=== PATIENT | male | born 1950 | race Caucasian/White ===

== ENCOUNTER 2017-01-02 08:18 | Inpatient (IN) | payer MEDICARE, OTHER ==
[~2017-01-02 08:18] MED LIST: FAMOTIDINE 20 MG/2 ML VIAL IV PRN; HEPARIN SODIUM,PORCINE 5,000 UNIT/ML 1 ML VIAL SQ ONE; HYDROmorphone 1 MG/ML 1 ML SYRINGE IVP PRN; LACTATED RINGERS 1,000 ML IV SCH; LIDOCAINE 1% 20 ML VIAL (10MG/ML) FOR IV START INTRADERMA PRN; MIDAZOLAM 2 MG/2 ML VIAL IV PRN; ONDANSETRON 4 MG/2 ML VIAL IVP ONE; ceFAZolin 2 GM in SODIUM CHLORIDE 0.9% 100 ML IVPB ONE
--- NOTE | 2017-01-02 09:03 | P.GSHP ---
History of Present Illness H&P Date: 01/02/17 Chief Complaint: Incarcerated left inguinal hernia This is a 66-year-old male who presents today for laparoscopic robotic-assisted repair of incarcerated left inguinal hernia. Patient developed a mass in his left groin for last several months - Constitutional Constitutional: Reports as per HPI Past Medical History Past Medical History: Diabetes Mellitus, Hyperlipidemia, Hypertension, Myocardial Infarction ([place]) Additional Past Medical History / Comment(s): HERNIA. WAS TOLD HAS SLIGHT [place] YEARS AGO Last Myocardial Infarction Date:: UNK History of Any Multi-Drug Resistant Organisms: None Reported Past Surgical History: Hernia Repair, Orthopedic Surgery Additional Past Surgical History / Comment(s): LT SHOULDER,LT KNEE, RT WRIST SURGERY,ORIF LT LOWER LEG, BILAT CATARACTS REMOVED, Past Anesthesia/Blood Transfusion Reactions: Motion Sickness Past Psychological History: Depression Additional Psychological History / Comment(s): NO PROBLEMS AT THIS TIME Smoking Status: Former smoker Past Alcohol Use History: None Reported Additional Past Alcohol Use History / Comment(s): QUIT SMOKING APPROX 2008, STARTED SMOKING 1966 Past Drug Use History: None Reported - Past Family History Mother Family Medical History: No Reported History Father Additional Family Medical History / Comment(s): IN AUTO ACC. Medications and Allergies Home Medications Medication Instructions Recorded Confirmed Type Aspirin 81 mg PO DAILY 05/21/14 12/28/16 History glipiZIDE [Glucotrol] 5 mg PO AC-BRKFST 05/21/14 12/28/16 History metFORMIN HCL [metFORMIN HCL ER] 1,000 mg PO BID 05/21/14 12/28/16 History Simvastatin [Zocor] 80 mg PO DAILY 12/28/16 12/28/16 History amLODIPine [Norvasc] 10 mg PO DAILY 12/28/16 12/28/16 History Allergies Allergy/AdvReac Type Severity Reaction Status Date / Time No Known Allergies Allergy Verified 12/28/16 10:00 Surgical - Exam Vital Signs Temp Pulse Resp BP Pulse Ox 98.0 F 100 16 129/85 98 01/02/17 08:46 01/02/17 08:46 01/02/17 08:46 01/02/17 08:46 01/02/17 08:46 - General well developed, no distress - Eyes PERRL - ENT normal pinna - Neck no masses - Respiratory normal expansion - Cardiovascular Rhythm: regular - Abdomen Abdomen: soft, non tender Hernia: inguinal (Incarcerated left inguinal hernia) Assessment and Plan Plan: Incarcerated left able hernia. We'll perform laparoscopic robotic-assisted repair.
[2017-01-02 09:07] LABS: Glucose,Whole Blood 165 mg/dL (75-99)
[2017-01-02] MEDS ORDERED: LEVALBUTEROL NEB 0.31 MG/3 ML AMP INHALATION STA (09:07)
[2017-01-02 09:11] LABS: Basophils # (A) 0.1 k/uL (0-0.2); Basophils % (A) 1 %; CH 26.4; CHCM 32.3; Eosinophils # (A) 0.2 k/uL (0-0.7); Eosinophils % (A) 2 %; HCT 45.8 % (39.0-53.0); HDW 2.44; HGB 14.9 gm/dL (13.0-17.5); Luc # (Auto) 0.25; Luc % (Auto) 3; Lymphocytes # (A) 1.5 k/uL (1.0-4.8); Lymphocytes % (A) 19 %; MCH 26.6 pg (25.0-35.0); MCHC 32.5 g/dL (31.0-37.0); MCV 82.1 fL (80.0-100.0); Mean Platelet Volume 8.5; Monocytes # (A) 0.4 k/uL (0-1.0); Monocytes % (A) 5 %; Neutrophils # (A) 5.7 k/uL (1.3-7.7); Neutrophils % (A) 71 %; RBC 5.58 m/uL (4.30-5.90); RDW 13.9 % (11.5-15.5); WBC (Perox) 7.84
[2017-01-02] MEDS ORDERED: LEVALBUTEROL NEB 1.25 MG/3 ML AMP INHALATION STA (09:20)
[2017-01-02 09:28] LABS: Anion Gap 10 mmol/L; Blood Urea Nitrogen 23 mg/dL (9-20); Calcium 10.4 mg/dL (8.4-10.2); Carbon Dioxide 26 mmol/L (22-30); Chloride 104 mmol/L (98-107); Glucose 173 mg/dL (74-99); Non-African American GFR(MDRD) >60 (>60 ml/min/1.73 sqM); Potassium 4.6 mmol/L (3.5-5.1); Sodium 140 mmol/L (137-145)
[2017-01-02] MEDS ORDERED: NALOXONE 0.4 MG/ML 1 ML VIAL IV PRN (11:03)
[2017-01-02] MEDS ORDERED: LACTATED RINGERS 1,000 ML IV ONE (11:14)
[2017-01-02 12:31] LABS: Glucose,Whole Blood 156 mg/dL (75-99)
--- NOTE | 2017-01-02 14:35 | P.HPIM ---
History of Present Illness H&P Date: 01/02/17 Chief Complaint: Atrial fibrillation, new onset Patient is a 66-year-old male, patient of Dr. Salazar in the outpatient setting, with medical history significant for diabetes mellitus type 2, hyperlipidemia, hypertension, coronary artery disease and myocardial infarction, and remote history of nicotine dependence. Patient presented this morning for elective laparoscopic robotic-assisted repair of incarcerated left inguinal hernia that he states has been present for approximately a month. Patient was noted to be in atrial fibrillation preoperatively and surgery was cancelled. Patient was admitted to the selective care unit with cardiology consult. Upon examination, patient is sitting on the side of the bed. Patient is feeling well. Patient reports nonproductive cough that he's had for a long time. Patient states he becomes short of breath with minimal activity. Denies chills, fevers, nausea, vomiting, chest pain, heart palpitations, abdominal pain , diarrhea, constipation, urinary hesitancy, urgency, or dysuria. Patient denies new lesions or rashes. Patient denies numbness or tingling. Patient reports good appetite. Labs reviewed and are essentially unremarkable. Heart rate irregular with evidence of atrial fibrillation. Past Medical History Past Medical History: Diabetes Mellitus, Hyperlipidemia, Hypertension, Myocardial Infarction ([place]) Additional Past Medical History / Comment(s): HERNIA. WAS TOLD HAS SLIGHT [place] YEARS AGO Last Myocardial Infarction Date:: UNK History of Any Multi-Drug Resistant Organisms: None Reported Past Surgical History: Hernia Repair, Orthopedic Surgery Additional Past Surgical History / Comment(s): LT SHOULDER,LT KNEE, RT WRIST SURGERY,ORIF LT LOWER LEG, BILAT CATARACTS REMOVED, Past Anesthesia/Blood Transfusion Reactions: Motion Sickness Past Psychological History: Depression Additional Psychological History / Comment(s): NO PROBLEMS AT THIS TIME Smoking Status: Former smoker Past Alcohol Use History: None Reported Additional Past Alcohol Use History / Comment(s): QUIT SMOKING APPROX 2008, STARTED SMOKING 1966 Past Drug Use History: None Reported - Past Family History Mother Family Medical History: No Reported History Father Additional Family Medical History / Comment(s): IN AUTO ACC. Medications and Allergies Home Medications Medication Instructions Recorded Confirmed Type Aspirin 81 mg PO DAILY 05/21/14 01/02/17 History glipiZIDE [Glucotrol] 5 mg PO AC-BRKFST 05/21/14 01/02/17 History metFORMIN HCL [metFORMIN HCL ER] 1,000 mg PO BID 05/21/14 01/02/17 History Simvastatin [Zocor] 80 mg PO DAILY 12/28/16 01/02/17 History amLODIPine [Norvasc] 10 mg PO DAILY 12/28/16 01/02/17 History Allergies Allergy/AdvReac Type Severity Reaction Status Date / Time No Known Allergies Allergy Verified 01/02/17 09:06 Physical Exam Vitals: Vital Signs Temp Pulse Pulse Pulse Resp BP BP 01/02/17 12:00 97.0 F L 108 H 20 133/73 01/02/17 11:15 110 H 16 104/64 01/02/17 11:02 107 H 18 132/83 01/02/17 09:41 74 01/02/17 09:21 76 01/02/17 08:46 98.0 F 100 16 129/85 Pulse Ox 01/02/17 12:00 93 L 01/02/17 11:15 92 L 01/02/17 11:02 92 L 01/02/17 09:41 01/02/17 09:21 01/02/17 08:46 98 GENERAL: Pt awake and alert, well-appearing, well-nourished, and in no acute distress. HEAD: Atraumatic, normocephalic. EYES: Pupils equal, round, and reactive to light, extraocular movements intact, sclera anicteric, conjunctiva are normal. ENT: Oropharynx clear without exudates. Moist mucous membranes. NECK:Normal range of motion, supple without lymphadenopathy or JVD. Thyroid midline, small and firm without palpable masses. LUNGS: Breath sounds diminished to auscultation bilaterally. No wheezes, rales , or rhonchi. HEART: Heart S1, S2, no S3 or S4. Irregularly irregular. No murmurs, rubs or gallops. ABDOMEN: Soft, obese, nontender, mildly distended, normoactive bowel sounds. No guarding, no rebound. EXTREMITIES: Palpable peripheral pulses. No edema. No calf tenderness. NEUROLOGICAL: Pt oriented x 3. No focal deficits. Strength and sensation grossly intact. PSYCH: Normal mood, normal affect. SKIN: Warm, dry, intact. Normal turgor. No rashes or lesions. Results CBC & Chem 7: 01/02/17 08:55 01/02/17 08:44 Labs: Abnormal Lab Results - Last 24 Hours (Table) 01/02/17 01/02/17 01/02/17 Range/Units 08:44 08:51 12:20 BUN 23 H (9-20) mg/dL Glucose 173 H (74-99) mg/dL POC Glucose (mg/dL) 165 H 156 H (75-99) mg/dL Calcium 10.4 H (8.4-10.2) mg/dL Thrombosis Risk Factor Assmnt - DVT/VTE Prophylaxis DVT/VTE Prophylaxis: Pharmacologic Prophylaxis ordered, Mechanical Prophylaxis ordered - Choose All That Apply Each Factor Represents 1 point: Acute [place], Obesity (BMI >25) Other Risk Factors: Yes Each Risk Factor Represents 2 Points: Age 61-74 years, Arthroscopic surgery, Laparoscopic surgery Thrombosis Risk Factor Assessment Total Risk Factor Score: 8 Thrombosis Risk Factor Assessment Level: High Risk Assessment and Plan Plan: Impression and plan: 1. New-onset atrial fibrillation. Cardiology consult requested, recommendations pending. Continue cardiac monitoring. Continue heparin subcu every 8 hours. 2. Shortness of breath with minimal activity. Obtain chest x-ray. Check BNP. 3. Incarcerated left inguinal hernia. Dr. Harper from surgical services on consult. Surgical intervention currently on hold. 4. Diabetes mellitus type 2. Will check hemoglobin A C1. Continue Accu-Cheks before meals at bedtime with Humalog sliding scale. Continue Glucotrol. Continue metformin. 5. Hyperlipidemia. Continue Lipitor. 6. Hypertension. Continue Norvasc. 7. Coronary artery disease with history of myocardial infarction. No history of stent placement. Continue aspirin 81 mg daily. 8. Obesity. BMI 33.9. 9. Depression, stable. 10. History of nicotine dependence. 11. DVT prophylaxis. Continue heparin subcu. 12. GI prophylaxis. Continue Protonix. 13. Repeat CBC and BMP in a.m. The above impression and plan have been discussed and directed by Dr. Hale. Tony LEE acting as scribe for Dr. Hale.
--- NOTE | 2017-01-02 15:41 | XR ---
EXAMINATION TYPE: XR chest 2V DATE OF EXAM: 01/02/2017 2:50 PM COMPARISON: 09/20/2013 TECHNIQUE: PA and lateral views submitted. HISTORY: Cough FINDINGS: The lungs are clear and there is no pneumothorax, pleural effusion, or focal pneumonia. Chronic ahmadi ges involving the shoulders. Hyperinflation suggests COPD. Degenerative change of the spine noted. Ap ical pleural thickening noted. IMPRESSION: 1. No acute process. Correlate for COPD.
[2017-01-02] MEDS ORDERED: HEPARIN SODIUM,PORCINE 5,000 UNIT/ML 1 ML VIAL SQ SCH (16:00)
[2017-01-02 16:28] LABS: Glucose,Whole Blood 187 mg/dL (75-99)
[2017-01-02] MEDS: ALBUTEROL NEBULIZED 2.5 MG/3 ML INHALATION SCH ×2 (18:25→20:40)
[2017-01-02] MEDS: INSULIN LISPRO (humaLOG) 300 UNIT/3 ML VIAL SQ SCH ×3 (19:51→21:03)
[2017-01-02] MEDS: SODIUM CHLORIDE 0.9% 1,000 ML IV SCH (20:01)
[2017-01-02] MEDS: metFORMIN 500 MG TAB PO SCH (20:02)
[2017-01-02] MEDS ORDERED: HEPARIN SODIUM,PORCINE 5,000 UNIT/ML 1 ML VIAL IV PRN (20:49)
[2017-01-02] MEDS ORDERED: HEPARIN SODIUM,PORCINE 5,000 UNIT/ML 1 ML VIAL IV ONE (20:49)
[2017-01-02] MEDS ORDERED: HEPARIN SODIUM,PORCINE/D5W PMX 25,000 UNIT in DEXTROSE/WATER 1 500ML.BAG IV SCH (21:00)
[2017-01-02 21:01] LABS: Glucose,Whole Blood 155 mg/dL (75-99)
[2017-01-02 21:32] LABS: Basophils # (A) 0.1 k/uL (0-0.2); Basophils % (A) 1 %; CH 26.2; CHCM 31.6; Eosinophils # (A) 0.2 k/uL (0-0.7); Eosinophils % (A) 2 %; HCT 44.2 % (39.0-53.0); HDW 2.43; HGB 14.2 gm/dL (13.0-17.5); Luc # (Auto) 0.33; Luc % (Auto) 4; Lymphocytes % (A) 26 %; MCH 26.8 pg (25.0-35.0); MCHC 32.2 g/dL (31.0-37.0); MCV 83.3 fL (80.0-100.0); Mean Platelet Volume 8.6; Monocytes # (A) 0.5 k/uL (0-1.0); Monocytes % (A) 6 %; Neutrophils # (A) 4.8 k/uL (1.3-7.7); Neutrophils % (A) 61 %; RBC 5.31 m/uL (4.30-5.90); RDW 13.9 % (11.5-15.5); WBC 7.8 k/uL (3.8-10.6); WBC (Perox) 7.82
[2017-01-02 21:39] LABS: INR 1.1 (<1.1); Partial Thromboplastin Time 25.2 sec (22.0-30.0); Prothrombin Time 10.9 sec (9.0-12.0)
[2017-01-03 03:36] LABS: Basophils # (A) 0.1 k/uL (0-0.2); Basophils % (A) 1 %; CH 26.2; CHCM 31.7; Eosinophils # (A) 0.2 k/uL (0-0.7); Eosinophils % (A) 2 %; HCT 43.1 % (39.0-53.0); HDW 2.41; HGB 13.7 gm/dL (13.0-17.5); Luc # (Auto) 0.26; Luc % (Auto) 3; Lymphocytes # (A) 1.6 k/uL (1.0-4.8); Lymphocytes % (A) 21 %; MCH 26.4 pg (25.0-35.0); MCHC 31.7 g/dL (31.0-37.0); MCV 83.1 fL (80.0-100.0); Mean Platelet Volume 8.3; Monocytes # (A) 0.5 k/uL (0-1.0); Monocytes % (A) 6 %; Neutrophils # (A) 5.2 k/uL (1.3-7.7); Neutrophils % (A) 67 %; RBC 5.18 m/uL (4.30-5.90); RDW 13.9 % (11.5-15.5); WBC 7.7 k/uL (3.8-10.6); WBC (Perox) 7.86
[2017-01-03 04:15] LABS: ALT 40 U/L (21-72); AST 17 U/L (17-59); Alkaline Phosphatase 146 U/L (38-126); Anion Gap 8 mmol/L; Blood Urea Nitrogen 23 mg/dL (9-20); Calcium 10.2 mg/dL (8.4-10.2); Carbon Dioxide 27 mmol/L (22-30); Chloride 102 mmol/L (98-107); Glucose 151 mg/dL (74-99); Non-African American GFR(MDRD) >60 (>60 ml/min/1.73 sqM); Potassium 4.3 mmol/L (3.5-5.1); Sodium 137 mmol/L (137-145); Total Bilirubin 0.4 mg/dL (0.2-1.3); Total Protein 5.9 g/dL (6.3-8.2)
[2017-01-03 06:07] LABS: Glucose,Whole Blood 178 mg/dL (75-99)
[2017-01-03] MEDS: INSULIN LISPRO (humaLOG) 300 UNIT/3 ML VIAL SQ SCH ×4 (06:37→22:01)
[2017-01-03] MEDS: glipiZIDE 5 MG TAB PO SCH (06:37)
[2017-01-03] MEDS: metFORMIN 500 MG TAB PO SCH ×2 (06:37→17:42)
[2017-01-03] MEDS: ALBUTEROL NEBULIZED 2.5 MG/3 ML INHALATION SCH ×4 (08:13→20:23)
--- NOTE | 2017-01-03 08:18 | ECHOF ---
Referral Reason:new onset afib MEASUREMENTS -------- HEIGHT: 167.6 cm WEIGHT: 95.3 kg BP: 133/73 RVIDd: 2.9 cm (< 3.3) IVSd: 1.3 cm (0.6 - 1.1) LVIDd: 4.2 cm (3.9 - 5.3) LVPWd: 1.2 cm (0.6 - 1.1) IVSs: 1.7 cm LVIDs: 3.3 cm LVPWs: 1.8 cm LA Diam: 3.6 cm (2.7 - 3.8) LAESV Index (A-L): 26.12 ml/m Ao Diam: 3.1 cm (2.0 - 3.7) AV Cusp: 2.2 cm (1.5 - 2.6) MV EXCURSION: 8.330 mm (> 18.000) MV EF SLOPE: 39 mm/s (70 - 150) EPSS: 1.2 cm RAP: 5.00 mmHg RVSP: 28.98 mmHg FINDINGS -------- Atrial fibrillation. This was a technically difficult study with suboptimal views. The left ventricular size is normal. There is mild concentric left ventricular hypertrophy. Overall left ventricular systolic function is low-normal with, an EF between 50 - 55 %. The right ventricle is normal in size and function. Normal LA size by volume 22+/-6 ml/m2. The right atrium is normal in size. 1.5mg of Definity was utilized for enhancement of images The aortic valve was not well visualized. There is trace to mild mitral regurgitation. Mild tricuspid regurgitation present. Right ventricular systolic pressure is normal at < 35 mmHg. The pulmonic valve was not well visualized. The aortic root size is normal. Normal inferior vena cava with normal inspiratory collapse consistent with estimated right atrial pressure of 5 mmHg. There is no pericardial effusion. CONCLUSIONS -------- 1. Atrial fibrillation. 2. The aortic valve was not well visualized. 3. There is trace to mild mitral regurgitation. 4. Mild tricuspid regurgitation present. 5. Right ventricular systolic pressure is normal at < 35 mmHg. 6. The pulmonic valve was not well visualized. 7. The aortic root size is normal. 8. Normal inferior vena cava with normal inspiratory collapse consistent with estimated right atrial pressure of 5 mmHg. 9. There is no pericardial effusion. 10. This was a technically difficult study with suboptimal views. 11. The left ventricular size is normal. 12. There is mild concentric left ventricular hypertrophy. 13. Overall left ventricular systolic function is low-normal with, an EF between 50 - 55 %. 14. The right ventricle is normal in size and function. 15. Normal LA size by volume 22+/-6 ml/m2. 16. The right atrium is normal in size. 17. 1.5mg of Definity was utilized for enhancement of images DIGITAL X RAY SERVICE ENGINEER: Tatiana Scott RDCS
[2017-01-03] MEDS ORDERED: PANTOPRAZOLE 40 MG/10 ML VIAL IV SCH (09:00)
[2017-01-03] MEDS: amLODIPine 10 MG TAB PO SCH (09:34)
[2017-01-03] MEDS: ASPIRIN 81 MG CHEW PO SCH (09:35)
[2017-01-03] MEDS: ATORVASTATIN 40 MG TAB PO SCH (09:35)
[2017-01-03 11:23] LABS: Glucose,Whole Blood 147 mg/dL (75-99)
--- NOTE | 2017-01-03 12:50 | P.PN ---
Subjective Principal diagnosis: Atrial fibrillation Patient is a 66-year-old white male admitted with new-onset atrial fibrillation. Patient is feeling well. Denies chills, nausea, increased shortness of breath, or chest pain. 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 Patient remains in atrial fibrillation, ventricular rate controlled. Patient has been started on IV heparin and will start anticoagulation in the form of Xaralto tonight. Echocardiogram with Doppler with evidence of preserved left ventricular systolic function with an EF between 50-55%. Chest x-ray with evidence of COPD without acute process noted. BNP 175. Thyroid function tests normal. Objective - Vital Signs Vital signs: Vital Signs Temp 97.2 F L 01/03/17 11:11 Pulse 107 H 01/03/17 11:11 Resp 18 01/03/17 11:11 BP 147/80 01/03/17 11:11 Pulse Ox 96 01/03/17 11:11 Intake & Output 01/02/17 01/03/17 01/03/17 18:59 06:59 18:59 Intake Total 298 251.667 536 Balance 298 251.667 536 Weight 95.25 kg 91.4 kg Intake: IV 120 Sodium Chloride 0.9% 1, 120 000 ml @ 20 mls/hr IV . Q24H [facility] Rx#:[id number] Intake, IV Titration 131.667 Amount Heparin Sodium,Porcine/ 131.667 D5w Pmx 25,000 unit In Dextrose/Water 1 500ml. bag @ 10.5 UNITS/KG/HR 20 mls/hr IV .Q24H [facility] Rx#: [id number] Oral 298 536 Other: Voiding Method Toilet Toilet Urinal # Voids 2 - Exam GENERAL: Pt awake and alert, well-appearing, well-nourished, and in no acute distress. HEAD: Atraumatic, normocephalic. EYES: Pupils equal, round, and reactive to light, extraocular movements intact, sclera anicteric, conjunctiva are normal. ENT: Oropharynx clear without exudates. Moist mucous membranes. NECK:Normal range of motion, supple without lymphadenopathy or JVD. Thyroid midline, small and firm without palpable masses. LUNGS: Breath sounds diminished to auscultation bilaterally. No wheezes, rales , or rhonchi. HEART: Heart S1, S2, no S3 or S4. Irregularly irregular. No murmurs, rubs or gallops. ABDOMEN: Soft, obese, nontender, mildly distended, normoactive bowel sounds. No guarding, no rebound. EXTREMITIES: Palpable peripheral pulses. No edema. No calf tenderness. NEUROLOGICAL: Pt oriented x 3. No focal deficits. Strength and sensation grossly intact. PSYCH: Normal mood, normal affect. SKIN: Warm, dry, intact. Normal turgor. No rashes or lesions. - Labs CBC & Chem 7: 01/03/17 03:26 01/03/17 03:26 Labs: Abnormal Lab Results - Last 24 Hours (Table) 01/02/17 01/02/17 01/03/17 Range/Units 16:26 20:59 03:26 APTT (22.0-30.0) sec BUN 23 H (9-20) mg/dL Glucose 151 H (74-99) mg/dL POC Glucose (mg/dL) 187 H 155 H (75-99) mg/dL Alkaline Phosphatase 146 H (38-126) U/L Total Protein 5.9 L (6.3-8.2) g/dL 01/03/17 01/03/17 01/03/17 Range/Units 03:26 06:04 11:19 APTT 39.6 H (22.0-30.0) sec BUN (9-20) mg/dL Glucose (74-99) mg/dL POC Glucose (mg/dL) 178 H 147 H (75-99) mg/dL Alkaline Phosphatase (38-126) U/L Total Protein (6.3-8.2) g/dL Assessment and Plan Plan: Impression and plan: 1. New-onset atrial fibrillation. Cardiology consult requested, recommendations noted. Continue cardiac monitoring. Patient will start Xaralto tonight for anticoagulation. 2. Shortness of breath with minimal activity. Chest x-ray with evidence of COPD, BNP normal. 3. Incarcerated left inguinal hernia. Dr. Harper from surgical services on consult. Surgical intervention currently on hold. 4. Diabetes mellitus type 2, uncontrolled. Hemoglobin A1c 10.4. Continue Accu- Cheks before meals at bedtime with Humalog sliding scale. Continue Glucotrol. Continue metformin. Will obtain dietary and coding educator consult. 5. Hyperlipidemia. Continue Lipitor. 6. Hypertension. Continue Norvasc. 7. Coronary artery disease with history of myocardial infarction. No history of stent placement. Continue aspirin 81 mg daily. 8. Obesity. BMI 33.9. 9. Depression, stable. 10. History of nicotine dependence. 11. DVT prophylaxis. Patient remains on IV heparin. 12. GI prophylaxis. Continue Protonix. 13. Repeat CBC and BMP in a.m. The above impression and plan have been discussed and directed by Dr. Hale. Tony LEE acting as scribe for Dr. Hale.
--- NOTE | 2017-01-03 12:59 | P.CRDCN ---
History of Present Illness Consult date: 01/03/17 Requesting physician: Brandon Hale Jr Consult reason: atrial flutter Chief complaint: Hernia repair History of present illness: This is a 66-year-old gentleman who follows regularly with Dr. Huang in the office. He has a known history of hypertension, hyperlipidemia, diabetes , questionable prior myocardial infarction, he also states that he had an episode of atrial fibrillation at the time of the shoulder surgery in the past. He is not currently on anticoagulation, takes a baby aspirin a day. He came to the hospital to undergo hernia repair surgery, was connected to the monitor and found to be in atrial fibrillation/flutter with rapid ventricular response, hence the surgery was canceled and patient was transferred to the telemetry unit. EKG on arrival here showed atrial fibrillation/flutter with rapid ventricular response. Patient is currently on IV heparin. Blood pressure 146/ 80, heart rate 107. 96% on room air. CBC normal, potassium 4.3, BUN 23, creatinine 1.1. Echocardiogram with Doppler study was performed which revealed an ejection fraction of 50-55%. Chest x-ray did not reveal any acute process. At the time of my examination, patient continues to be in atrial fibrillation. Rhythm strips show atrial flutter, with postconversion pauses up to 4 seconds. Past Medical History Past Medical History: Diabetes Mellitus, Hyperlipidemia, Hypertension, Myocardial Infarction ([place]) Additional Past Medical History / Comment(s): HERNIA. WAS TOLD HAS SLIGHT [place] YEARS AGO Last Myocardial Infarction Date:: UNK History of Any Multi-Drug Resistant Organisms: None Reported Past Surgical History: Hernia Repair, Orthopedic Surgery Additional Past Surgical History / Comment(s): LT SHOULDER,LT KNEE, RT WRIST SURGERY,ORIF LT LOWER LEG, BILAT CATARACTS REMOVED, Past Anesthesia/Blood Transfusion Reactions: Motion Sickness Past Psychological History: Depression Additional Psychological History / Comment(s): NO PROBLEMS AT THIS TIME Smoking Status: Former smoker Past Alcohol Use History: None Reported Additional Past Alcohol Use History / Comment(s): QUIT SMOKING APPROX 1999, STARTED SMOKING 1966 Past Drug Use History: None Reported - Past Family History Mother Family Medical History: No Reported History Father Additional Family Medical History / Comment(s): IN AUTO ACC. Medications and Allergies Home Medications Medication Instructions Recorded Confirmed Type Aspirin 81 mg PO DAILY 05/21/14 01/02/17 History glipiZIDE [Glucotrol] 5 mg PO AC-BRKFST 05/21/14 01/02/17 History metFORMIN HCL [metFORMIN HCL ER] 1,000 mg PO BID 05/21/14 01/02/17 History Simvastatin [Zocor] 80 mg PO DAILY 12/28/16 01/02/17 History amLODIPine [Norvasc] 10 mg PO DAILY 12/28/16 01/02/17 History Allergies Allergy/AdvReac Type Severity Reaction Status Date / Time No Known Allergies Allergy Verified 01/02/17 09:06 Physical Exam Vitals: Vital Signs Temp Pulse Pulse Resp BP Pulse Ox 01/03/17 11:11 97.2 F L 107 H 18 147/80 96 01/03/17 09:30 117 H 141/83 01/03/17 08:52 81 18 01/03/17 08:30 82 01/03/17 08:13 82 01/03/17 07:46 97.4 F L 81 18 133/77 96 01/03/17 03:01 97.3 F L 106 H 16 137/79 94 L 01/02/17 23:10 97.6 F 93 16 96/60 96 01/02/17 20:44 80 01/02/17 20:34 80 01/02/17 19:56 97 F L 94 16 117/84 95 01/02/17 15:30 97.4 F L 106 H 18 136/69 95 Intake and Output 01/02/17 01/03/17 01/03/17 22:59 06:59 14:59 Intake Total 118 251.667 696 Balance 118 251.667 696 Intake: IV 120 160 Sodium Chloride 0.9% 1, 120 160 000 ml @ 20 mls/hr IV . Q24H [facility] Rx#:[id number] Intake, IV Titration 131.667 Amount Heparin Sodium,Porcine/ 131.667 D5w Pmx 25,000 unit In Dextrose/Water 1 500ml. bag @ 10.5 UNITS/KG/HR 20 mls/hr IV .Q24H [facility] Rx#: [id number] Oral 118 536 Other: Voiding Method Toilet Toilet Toilet Urinal Urinal # Voids 1 2 Weight 95.25 kg 91.4 kg PHYSICAL EXAMINATION: HEENT: Head is atraumatic, normocephalic. Pupils equal, round. Neck is supple. There is no elevated jugular venous pressure. HEART EXAMINATION: S1 and S2 irregularly irregular CHEST EXAMINATION: Lungs are clear to auscultation and precussion. No chest wall tenderness is noted on palpation or with deep breathing. ABDOMEN: Soft, obese, nontender. Bowel sounds are heard. No organomegaly noted. EXTREMITIES: 2+ peripheral pulses with no evidence of peripheral edema and no calf tenderness noted. NEUROLOGIC patient is awake, alert and oriented -3. . Results 01/03/17 03:26 01/03/17 03:26 Cardiac Enzymes 01/03/17 Range/Units 03:26 AST 17 (17-59) U/L Coagulation 01/02/17 01/03/17 Range/Units 21:22 03:26 PT 10.9 (9.0-12.0) sec APTT 25.2 39.6 H (22.0-30.0) sec CBC 01/02/17 01/03/17 Range/Units 21:22 03:26 WBC 7.8 7.7 (3.8-10.6) k/uL RBC 5.31 5.18 (4.30-5.90) m/uL Hgb 14.2 13.7 (13.0-17.5) gm/dL Hct 44.2 43.1 (39.0-53.0) % Plt Count 215 189 (150-450) k/uL Comprehensive Metabolic Panel 01/03/17 Range/Units 03:26 Sodium 137 (137-145) mmol/L Potassium 4.3 (3.5-5.1) mmol/L Chloride 102 (98-107) mmol/L Carbon Dioxide 27 (22-30) mmol/L BUN 23 H (9-20) mg/dL Creatinine 1.10 (0.66-1.25) mg/dL Glucose 151 H (74-99) mg/dL Calcium 10.2 (8.4-10.2) mg/dL AST 17 (17-59) U/L ALT 40 (21-72) U/L Alkaline Phosphatase 146 H (38-126) U/L Total Protein 5.9 L (6.3-8.2) g/dL Albumin 3.5 (3.5-5.0) g/dL Current Medications Generic Name Dose Route Start Last Admin Trade Name Freq PRN Reason Stop Dose Admin Albuterol Sulfate 2.5 mg 01/02/17 16:00 01/03/17 08:13 Ventolin Nebulized INHALATION 2.5 mg RT-QID [facility] Administration Amlodipine Besylate 10 mg 01/03/17 09:00 01/03/17 09:34 Norvasc PO 10 mg DAILY [facility] Administration Aspirin 81 mg 01/03/17 09:00 01/03/17 09:35 Aspirin PO 81 mg DAILY [facility] Administration Atorvastatin Calcium 40 mg 01/03/17 09:00 01/03/17 09:35 Lipitor PO 40 mg DAILY [facility] Administration Glipizide 5 mg 01/03/17 07:30 01/03/17 06:37 Glucotrol PO 5 mg AC-BRKFST [facility] Administration Sodium Chloride 1,000 mls @ 20 mls/hr 01/02/17 12:45 01/02/17 20:01 Saline 0.9% IV Not Given .Q24H [facility] Insulin Human Lispro 0 unit 01/02/17 12:30 01/03/17 12:07 Humalog SQ 1 unit ACHS [facility] Administration Protocol Lidocaine HCl 0.1 ml 01/02/17 05:17 01/02/17 08:58 .Xylocaine 1% Inj (10mg/Ml) For Iv Start INTRADERMA 0.2 ml PER PROTOCOL PRN Administration IV Start Metformin HCl 1,000 mg 01/02/17 17:30 01/03/17 06:37 Glucophage PO 1,000 mg BID-W/MEALS [facility] Administration Naloxone HCl 0.2 mg 01/02/17 11:03 Narcan IV Q2M PRN Opioid Reversal Pantoprazole Sodium 40 mg 01/03/17 09:00 01/03/17 09:35 Protonix IV 40 mg DAILY [facility] Administration Rivaroxaban 20 mg 01/03/17 17:30 Xarelto PO W/SUPPER [facility] Intake and Output 01/02/17 01/03/17 01/03/17 22:59 06:59 14:59 Intake Total 118 251.667 696 Balance 118 251.667 696 Intake: IV 120 160 Sodium Chloride 0.9% 1, 120 160 000 ml @ 20 mls/hr IV . Q24H [facility] Rx#:[id number] Intake, IV Titration 131.667 Amount Heparin Sodium,Porcine/ 131.667 D5w Pmx 25,000 unit In Dextrose/Water 1 500ml. bag @ 10.5 UNITS/KG/HR 20 mls/hr IV .Q24H [facility] Rx#: [id number] Oral 118 536 Other: Voiding Method Toilet Toilet Toilet Urinal Urinal # Voids 1 2 Weight 95.25 kg 91.4 kg 01/03/17 03:26 01/03/17 03:26 EKG Interpretations (text) EKG shows atrial fibrillation/flutter with rapid ventricular response. Assessment and Plan Plan: Assessment and plan #1 atrial fibrillation/flutter with rapid ventricular response. Paroxysmal in nature. Patient currently on IV heparin. #2 history of hypertension #3 diabetes #4 hyperlipidemia #5 prior nicotine dependence Plan We will request an echocardiogram with Doppler study be performed. Check free T4 and TSH level. We will also discontinue the IV heparin and start the patient on xarelto 20 mg daily. Decrease aspirin to 81 mg daily. We will request Dr. Rg to see the patient in consultation for possible flutter ablation. DNP note has been reviewed, I agree with a documented findings and plan of care. Patient was seen and examined.
[2017-01-03 15:01] VITALS: BMI 32.5
--- NOTE | 2017-01-03 15:21 | P.PN ---
Subjective Principal diagnosis: Incarcerated inguinal hernia Patient is a 66-year-old white male originally presenting for repair of incarcerated inguinal hernia and found to have new-onset atrial fibrillation delaying surgery for now. Patient is feeling well. Denies chills, nausea, increased shortness of breath, chest pain, or abdominal pain. Tolerating diet. Patient is urinating without difficulty. Denies constipation or diarrhea. Afebrile. No evidence of leukocytosis. Objective - Vital Signs Vital signs: Vital Signs Temp 97.2 F L 01/03/17 11:11 Pulse 107 H 01/03/17 11:11 Resp 18 01/03/17 11:11 BP 147/80 01/03/17 11:11 Pulse Ox 96 01/03/17 11:11 Intake & Output 01/02/17 01/03/17 01/03/17 18:59 06:59 18:59 Intake Total 298 251.667 696 Balance 298 251.667 696 Weight 95.25 kg 91.4 kg 91.4 kg Intake: IV 120 160 Sodium Chloride 0.9% 1, 120 160 000 ml @ 20 mls/hr IV . Q24H [facility] Rx#:[id number] Intake, IV Titration 131.667 Amount Heparin Sodium,Porcine/ 131.667 D5w Pmx 25,000 unit In Dextrose/Water 1 500ml. bag @ 10.5 UNITS/KG/HR 20 mls/hr IV .Q24H [facility] Rx#: [id number] Oral 298 536 Other: Voiding Method Toilet Toilet Urinal # Voids 2 - Exam GENERAL: Pt awake and alert, well-appearing, well-nourished, and in no acute distress. HEAD: Atraumatic, normocephalic. EYES: Pupils equal, round, and reactive to light, extraocular movements intact, sclera anicteric, conjunctiva are normal. ENT: Oropharynx clear without exudates. Moist mucous membranes. NECK:Normal range of motion, supple without lymphadenopathy or JVD. Thyroid midline, small and firm without palpable masses. LUNGS: Breath sounds diminished to auscultation bilaterally. No wheezes, rales , or rhonchi. HEART: Heart S1, S2, no S3 or S4. Irregularly irregular. No murmurs, rubs or gallops. ABDOMEN: Soft, obese, nontender, mildly distended, normoactive bowel sounds. No guarding, no rebound. EXTREMITIES: Palpable peripheral pulses. No edema. No calf tenderness. NEUROLOGICAL: Pt oriented x 3. No focal deficits. Strength and sensation grossly intact. PSYCH: Normal mood, normal affect. SKIN: Warm, dry, intact. Normal turgor. No rashes or lesions. - Labs CBC & Chem 7: 01/03/17 03:26 01/03/17 03:26 Labs: Abnormal Lab Results - Last 24 Hours (Table) 01/02/17 01/02/17 01/03/17 Range/Units 16:26 20:59 03:26 APTT (22.0-30.0) sec BUN 23 H (9-20) mg/dL Glucose 151 H (74-99) mg/dL POC Glucose (mg/dL) 187 H 155 H (75-99) mg/dL Alkaline Phosphatase 146 H (38-126) U/L Total Protein 5.9 L (6.3-8.2) g/dL 01/03/17 01/03/17 01/03/17 Range/Units 03:26 06:04 10:50 APTT 39.6 H 51.9 H (22.0-30.0) sec BUN (9-20) mg/dL Glucose (74-99) mg/dL POC Glucose (mg/dL) 178 H (75-99) mg/dL Alkaline Phosphatase (38-126) U/L Total Protein (6.3-8.2) g/dL 01/03/17 Range/Units 11:19 APTT (22.0-30.0) sec BUN (9-20) mg/dL Glucose (74-99) mg/dL POC Glucose (mg/dL) 147 H (75-99) mg/dL Alkaline Phosphatase (38-126) U/L Total Protein (6.3-8.2) g/dL Assessment and Plan Plan: Impression: 1. New-onset atrial fibrillation. 2. Incarcerated left inguinal hernia. Plan: Continue medical management for atrial fibrillation. Patient will need repair of incarcerated left inguinal hernia when medically stable. Patient will follow -up with Dr. Harper in 2 weeks post discharge. We'll sign off for now. Please reconsult as necessary. The above impression and plan have been discussed and directed by Dr. Bhesania. Tony LEE acting as scribe for Dr. Harper.
[2017-01-03 15:39] LABS: Glucose,Whole Blood 106 mg/dL (75-99)
[2017-01-03 16:50] LABS: Glucose,Whole Blood 106 mg/dL (75-99)
[2017-01-03] MEDS ORDERED: RIVAROXABAN 10 MG TAB PO SCH (17:30)
[2017-01-03] MEDS: SODIUM CHLORIDE 0.9% 1,000 ML IV SCH (17:37)
[2017-01-03 21:09] LABS: Glucose,Whole Blood 193 mg/dL (75-99)
[2017-01-04 06:06] LABS: Glucose,Whole Blood 143 mg/dL (75-99)
[2017-01-04] MEDS: INSULIN LISPRO (humaLOG) 300 UNIT/3 ML VIAL SQ SCH ×4 (06:51→21:31)
[2017-01-04] MEDS: metFORMIN 500 MG TAB PO SCH ×2 (06:51→17:16)
[2017-01-04] MEDS: glipiZIDE 5 MG TAB PO SCH (06:52)
[2017-01-04] MEDS: amLODIPine 10 MG TAB PO SCH (08:19)
[2017-01-04] MEDS: ASPIRIN 81 MG CHEW PO SCH (08:19)
[2017-01-04] MEDS: ATORVASTATIN 40 MG TAB PO SCH (08:19)
[2017-01-04] MEDS: PANTOPRAZOLE 40 MG TABLET PO SCH (08:20)
[2017-01-04] MEDS: ALBUTEROL NEBULIZED 2.5 MG/3 ML INHALATION SCH ×4 (08:36→20:41)
[2017-01-04 11:58] LABS: Glucose,Whole Blood 97 mg/dL (75-99)
[2017-01-04] MEDS: SODIUM CHLORIDE 0.9% 1,000 ML IV SCH (13:09)
--- NOTE | 2017-01-04 15:55 | P.PN ---
Subjective Principal diagnosis: Incarcerated inguinal hernia, atrial fibrillation Patient is a 66-year-old male, patient of Dr. Salazar in the outpatient setting, with medical history significant for diabetes mellitus type 2, hyperlipidemia, hypertension, coronary artery disease and myocardial infarction, and remote history of nicotine dependence. Patient presented this morning for elective laparoscopic robotic-assisted repair of incarcerated left inguinal hernia that he states has been present for approximately a month. Patient was noted to be in atrial fibrillation preoperatively and surgery was cancelled. Patient was admitted to the selective care unit with cardiology consult. Upon examination, patient is sitting on the side of the bed. Patient is feeling well. Denies chills, fevers, nausea, vomiting, chest pain, heart palpitations, or abdominal pain. Patient is urinating without difficulty. Patient reports good appetite. Patient is afebrile. Blood pressure well controlled. Rhythm strips with evidence of normal sinus rhythm. Objective - Vital Signs Vital signs: Vital Signs Temp 97.8 F 01/04/17 11:52 Pulse 85 01/04/17 11:52 Resp 16 01/04/17 11:52 BP 106/70 01/04/17 11:52 Pulse Ox 93 L 01/04/17 11:52 Intake & Output 01/03/17 01/04/17 01/04/17 18:59 06:59 18:59 Intake Total 932 250 420 Balance 932 250 420 Weight 91.4 kg 91.5 kg Intake: IV 160 Sodium Chloride 0.9% 1, 160 000 ml @ 20 mls/hr IV . Q24H [facility] Rx#:[id number] Oral 772 250 420 Other: Voiding Method Toilet Toilet Toilet # Voids 1 0 - Exam GENERAL: Pt awake and alert, well-appearing, well-nourished, and in no acute distress. HEAD: Atraumatic, normocephalic. EYES: Pupils equal, round, and reactive to light, extraocular movements intact, sclera anicteric, conjunctiva are normal. ENT: Oropharynx clear without exudates. Moist mucous membranes. NECK:Normal range of motion, supple without lymphadenopathy or JVD. Thyroid midline, small and firm without palpable masses. LUNGS: Breath sounds diminished to auscultation bilaterally. No wheezes, rales , or rhonchi. HEART: Heart S1, S2, no S3 or S4. Irregularly irregular. No murmurs, rubs or gallops. ABDOMEN: Soft, obese, nontender, mildly distended, normoactive bowel sounds. No guarding, no rebound. EXTREMITIES: Palpable peripheral pulses. No edema. No calf tenderness. NEUROLOGICAL: Pt oriented x 3. No focal deficits. Strength and sensation grossly intact. PSYCH: Normal mood, normal affect. SKIN: Warm, dry, intact. Normal turgor. No rashes or lesions. - Labs CBC & Chem 7: 01/03/17 03:26 01/03/17 03:26 Labs: Abnormal Lab Results - Last 24 Hours (Table) 01/03/17 01/03/17 01/04/17 Range/Units 16:48 21:02 06:05 POC Glucose (mg/dL) 106 H 193 H 143 H (75-99) mg/dL Assessment and Plan Plan: Impression and plan: 1. New-onset atrial fibrillation, patient currently in sinus rhythm.. Cardiology consult requested, recommendations noted. Continue cardiac monitoring. Patient has been started on Eliques 5 mg by mouth twice a day for anticoagulation. Patient has also been started on flecainide 50 mg by mouth every 12 hours. 2. COPD, BNP normal. Follow-up with Dr. Jain in the outpatient setting. 3. Incarcerated left inguinal hernia. Dr. Harper from surgical services on consult. Surgical intervention currently on hold. 4. Diabetes mellitus type 2, uncontrolled. Hemoglobin A1c 10.4. Continue Accu- Cheks before meals at bedtime with Humalog sliding scale. Continue Glucotrol. Continue metformin. Will obtain dietary and early childhood special educator consult. 5. Hyperlipidemia. Continue Lipitor. 6. Hypertension. Continue Norvasc. 7. Coronary artery disease with history of myocardial infarction. No history of stent placement. Continue aspirin 81 mg daily. 8. Obesity. BMI 33.9. 9. Depression, stable. 10. History of nicotine dependence. 11. DVT prophylaxis. Continue Eliquis. 12. GI prophylaxis. Continue Protonix. Continue to monitor patient. Continue to follow with cardiology service. The above impression and plan have been discussed and directed by Dr. Hale. Tony LEE acting as scribe for Dr. Hale.
[2017-01-04 16:38] LABS: Glucose,Whole Blood 75 mg/dL (75-99)
[2017-01-04] MEDS: FLECAINIDE 50 MG TAB PO SCH ×2 (17:16→23:51)
--- NOTE | 2017-01-04 18:12 | CONS ---
DATE OF CONSULTATION: 66-year-old male patient who came in for surgery and was found to be in atrial fibrillation and the surgery was canceled. He was transferred to telemetry. On telemetry he has been experiencing paroxysms of atrial fibrillation with postconversion pauses between 2.5 to 4 seconds. No loss of consciousness. He does feel palpitations. No shortness of breath. No chest discomfort. His primary care physician was Dr. Salazar. REVIEW OF SYSTEMS: No fever, chills, rigors. No cough or expectoration. No nausea, vomiting or diarrhea. No hematuria, dysuria, strokes or seizures. No skin lesions or musculoskeletal complaints. Past medical history of dyslipidemia, hypertension and diabetes. Past surgical history: Surgery of the shoulder, knee and the wrist and bilateral cataract removal. SOCIAL HISTORY: He quit smoking about 2008. Home medications include: 1. Aspirin. 2. Glucotrol. 3. Metformin. 4. Simvastatin. 5. Amlodipine. ALLERGIES: No known drug allergies. Initially on examination, his heart rate was 108 beats a minute. Normal respirations, blood pressure 133/73 millimeters of Hg. Labs are reviewed. His sodium is 137, potassium 4.3, chloride 102, bicarb 27, BUN 33, creatinine 1.1, AST 17, ALT 14, alkaline phosphatase 146, TSH 0.77, free T4 1.3. White count is normal. Hematocrit is 14.9. Platelet count 220,000. 12-lead ECG shows sinus rhythm with normal cardiac intervals and another 12-lead ECG shows atrial fibrillation with mild RVR. IMPRESSION: 1. Newly diagnosed paroxysmal atrial fibrillation with postconversion pauses. 2. Mild sick sinus syndrome. 3. Type 2 diabetes. 4. Dyslipidemia, on Lipitor. 5. Hypertension on Norvasc 6. BMI of 33.9, obesity. SUGGEST: 2-D echo was reviewed. A 2-D echo was ( ) ordered and shows normal LV size and systolic function rate of 50% to 55% and LV function is normal between 50-55% RV size and function is normal. RA is normal in size and LA is normal in size. I had a detailed discussion with the patient and his . I explained the management of atrial fibrillation was both drug therapy and pulmonary vein isolation as initial pulmonary isolation. I will start him on flecainide 50 mg twice daily, watching him for about 48 hours to make sure that he has no significant bradycardia and suppress his atrial fibrillation, anticoagulation will also be begun today. I would recommend an atrial fibrillation because of his current post conversion pauses I discussed radiofrequency ablation. I also discussed cryoablation and detailed risks and benefits were discussed complications including esophageal injury, ( ) injury, cardiac perforation and stroke were discussed. The importance of continuing anticoagulation lifelong was discussed and because of his Colten Vasc score of 3 including age, diabetes and hypertension. I will schedule the procedure for him at least 4 weeks after starting anticoagulation. At this point we are giving him Eliquis 5 mg twice daily.
--- NOTE | 2017-01-04 18:34 | PN ---
This patient is admitted with atrial fibrillation and patient had recurrent episodes of paroxysmal atrial fibrillation with conversion pauses. The patient was evaluated by Dr. Rg. He is considering ablation in 4 to 6 weeks. We will start him on flecainide 50 mg b.i.d. His blood pressure is 106/70 mmHg, heart rate is 80 per minute, first and second heart sounds are normal. Lungs are clear to auscultation and percussion. If patient remains stable we will discharge to home patient tomorrow.
--- NOTE | 2017-01-04 18:37 | LTR ---
January 04, 2017 RE: Frankie Sage Dear Dr. Salazar: I had the pleasure of seeing Mr. Sage in electrophysiology consultation at [facility]. Mr. Sage was admitted with paroxysmal atrial fibrillation and he had recurrent postconversion pauses but no dizziness or loss of consciousness. I have recommended we start him on anticoagulation as well as low dose flecainide, but I would recommend an ablation on him. His echo is completely normal and I would recommend cryoablation of the pulmonary veins. I had a very detailed discussion with him and his and he is agreeable with the plan. The procedure will be performed after a minimum of 4 weeks of anticoagulation. Thank you for entrusting us with the care of your patient. With warm regards, If you have any questions please do not hesitate to call. Sincerely, ZAKI WELDON MD
[2017-01-04 21:36] LABS: Glucose,Whole Blood 78 mg/dL (75-99)
[2017-01-04] MEDS: APIXABAN 5 MG TAB PO SCH (21:40)
[2017-01-05] MEDS: INSULIN LISPRO (humaLOG) 300 UNIT/3 ML VIAL SQ SCH ×2 (06:26→14:44)
[2017-01-05] MEDS: metFORMIN 500 MG TAB PO SCH (06:31)
[2017-01-05] MEDS: glipiZIDE 5 MG TAB PO SCH (06:31)
[2017-01-05 06:32] LABS: Glucose,Whole Blood 100 mg/dL (75-99)
[2017-01-05] MEDS: ALBUTEROL NEBULIZED 2.5 MG/3 ML INHALATION SCH ×2 (08:02→11:14)
[2017-01-05] MEDS: APIXABAN 5 MG TAB PO SCH (08:43)
[2017-01-05] MEDS: amLODIPine 10 MG TAB PO SCH (08:43)
[2017-01-05] MEDS: ASPIRIN 81 MG CHEW PO SCH (08:44)
[2017-01-05] MEDS: FLECAINIDE 50 MG TAB PO SCH (08:44)
[2017-01-05] MEDS: ATORVASTATIN 40 MG TAB PO SCH (08:44)
[2017-01-05] MEDS: PANTOPRAZOLE 40 MG TABLET PO SCH (08:45)
--- NOTE | 2017-01-05 09:35 | CDI ---
In responding to this query, please exercise your independent professional judgment. The [facility] Coding Staff and Clinical Documentation Specialists appreciate your assistance in clarifying documentation, maintaining compliance with coding guidelines, accurately documenting patients condition and capturing severity of illness. The fact that a question is asked does not imply that any particular answer is desired or expected. Communication forms are a method of clarifying documentation and are not made part of the Legal Health Record. Thank you in advance for your clarification. Last Revision, August 2015 Rosio Trujillo [address] [facility] [place] [address] Documentation Clarification Form Date: 01/05/2017 9:27:00 AM From: Zaynab Jamar Admit Date: 01/02/2017 11:03:00 AM Patient Name: Frankie Sage Visit Number: [id number] Dr. Brandon Hale and Tony Galvez NP The patient has diabetes mellitus type 2, uncontrolled as indicated on progress note on 01/03 and 01/04. Clinical Indicators : Diabetes Mellitus type 2 Hgb A1c 10.4 Treatment: Accuchecks Humalog sliding scale PO Glucotrol, Metformin Consult: Cost Reduction Engineer, Livestock Judging Coach In order to capture the severity of Illness and necessary documentation specificity, please clarify: DM Type 2 with Hypoglycemia Hyperglycemia Hyperosmolarity Unable to Determine Other Condition (please specify) Please document in your progress notes and discharge summary in order to capture severity of illness and risk of mortality. Include clinical findings that support your diagnosis. FYI: Press F11 to launch patient chart. Place X here if this finding has no clinical significance, is not applicable or if you are not able to provide any additional documentation. MTDD
[2017-01-05 12:06] LABS: Glucose,Whole Blood 51 mg/dL (75-99)
[2017-01-05 12:06] LABS: Glucose,Whole Blood 83 mg/dL (75-99)
[2017-01-05] MEDS: SODIUM CHLORIDE 0.9% 1,000 ML IV SCH (14:45)
[2017-01-05 15:44] VITALS: BP 140/85; PULSE 86; RESP 16
[2017-01-05 15:46] VITALS: TEMP 97.7
--- NOTE | 2017-01-05 18:59 | PN ---
This patient was admitted with paroxysmal atrial fibrillation and patient is doing well. He remains in normal sinus rhythm. Patient was evaluated by Dr. Rg. He is going to consider him ablation as an outpatient. First and second heart sounds are normal. Lungs are clear to auscultation and percussion. Patient is advised patient can be discharged home on flecainide 50 mg b.i.d.
--- NOTE | 2017-01-09 13:53 | P.DS ---
Providers Date of admission: 01/02/17 11:03 Expected date of discharge: 01/05/17 Attending physician: Brandon Hale Consults: 01/02/17 11:02 Consult Physician Urgent Consulting Provider: Mouna Guajardo Consult Reason/Comments: new onset atrial fibrillation Do you want consulting provider notified?: Yes 01/03/17 14:38 Consult Physician Urgent Consulting Provider: Ron Rg Consult Reason/Comments: aflutter Do you want consulting provider notified?: Yes Primary care physician: Hilton Salazar [facility] Course: kole is a 66-year-old male, patient of Dr. Salazar in the outpatient setting, with medical history significant for diabetes mellitus type 2, hyperlipidemia, hypertension, coronary artery disease and myocardial infarction, and remote history of nicotine dependence. Patient presented this morning for elective laparoscopic robotic-assisted repair of incarcerated left inguinal hernia that he states has been present for approximately a month. Patient was noted to be in atrial fibrillation preoperatively and surgery was cancelled. Patient was admitted to the selective care unit with cardiology consult. Patient was started on Eliquis and flecainide with plans to perform cryoablation of the pulmonary veins in approximately 4 weeks. Patient was deemed stable for discharge with follow-up in the outpatient setting. Discharge diagnoses: 1 Paroxysmal atrial fibrillation. 2. COPD. Follow-up with Dr. Jain in the outpatient setting. 3. Incarcerated left inguinal hernia. 4. Diabetes mellitus type 2, uncontrolled, with hyperglycemia. 5. Hyperlipidemia. 6. Hypertension. 7. Coronary artery disease with history of myocardial infarction. No history of stent placement. 8. Obesity. 9. Depression, stable. 10. History of nicotine dependence. The above impression and plan have been discussed and directed by Dr. Hale. Tony LEE acting as scribe for Dr. Hale. Pertinent Studies: Echocardiogram with Doppler; chest x-ray Patient Condition at Discharge: Good Plan - Discharge Summary New Discharge Prescriptions: Apixaban [Eliquis] 5 mg PO BID #60 tab Flecainide [Tambocor] 50 mg PO Q12HR #60 tab Discharge Medication List Aspirin 81 mg PO DAILY 05/21/14 [History] glipiZIDE [Glucotrol] 5 mg PO [id number] 05/21/14 [History] metFORMIN HCL [metFORMIN HCL ER] 1,000 mg PO BID 05/21/14 [History] Simvastatin [Zocor] 80 mg PO DAILY 12/28/16 [History] amLODIPine [Norvasc] 10 mg PO DAILY 12/28/16 [History] Apixaban [Eliquis] 5 mg PO BID #60 tab 01/05/17 [Rx] Flecainide [Tambocor] 50 mg PO Q12HR #60 tab 01/05/17 [Rx] Follow up Appointment(s)/Referral(s): Hilton Salazar MD [Primary Care Provider] - 1 Week Brittany Jain MD [STAFF PHYSICIAN] - 1 Week (COPD) Curt Harper MD [STAFF PHYSICIAN] - 2 Weeks (Incarcerated inguinal hernia) [facility] [Provider Group] - 1 Week Patient Instructions/Handouts: Atrial Fibrillation (DC) Activity/Diet/Wound Care/Special Instructions: 30 day free supply of Eliquis in OP pharmacy, Pt can receive free samples at his cardiology follow up appointment Discharge Disposition: HOME SELF-CARE
== END 2017-01-05 18:10 | disposition home or self-care (01) | DRG 309 ==
LOC: OR 08:18 → 6SEL 11:03 → OBSVTOIN 11:03 → 6SEL 01-04 18:12
PROVIDERS: ADMIT Family Medicine; ATTEND Family Medicine
DX: I48.0 Paroxysmal atrial fibrillation (principal); K40.30 Unilateral inguinal hernia, with obstruction, without gangrene, not specified as recurrent; I49.5 Sick sinus syndrome; E11.65 Type 2 diabetes mellitus with hyperglycemia; J44.9 Chronic obstructive pulmonary disease, unspecified; I25.10 Atherosclerotic heart disease of native coronary artery without angina pectoris; E66.9 Obesity, unspecified; I25.2 Old myocardial infarction; E78.5 Hyperlipidemia, unspecified; I48.92 Unspecified atrial flutter; I10 Essential (primary) hypertension; F32.9 Major depressive disorder, single episode, unspecified; Z79.82 Long term (current) use of aspirin; Z87.891 Personal history of nicotine dependence; Z79.899 Other long term (current) drug therapy; Z79.84 Long term (current) use of oral hypoglycemic drugs; Z98.42 Cataract extraction status, left eye; Z98.41 Cataract extraction status, right eye; Z87.81 Personal history of (healed) traumatic fracture; Z71.3 Dietary counseling and surveillance; Z68.33 Body mass index [BMI] 33.0-33.9, adult
CPT/HCPCS: 71020; 80048; 80053; 83880; 84439; 84443; 84481; 85025; 85610; 85730; 93005; 93306; 94640

== ENCOUNTER 2017-01-26 06:21 | Day surgery (SDC) | payer MEDICARE, OTHER ==
[2017-01-24 15:44] VITALS: BMI 33.9
[2017-01-26 06:53] LABS: Glucose,Whole Blood 100 mg/dL (75-99)
[2017-01-26 06:55] VITALS: RESP 18
[2017-01-26] MEDS ORDERED: SODIUM CHLORIDE 0.9% 1,000 ML IV ONE (06:55)
[2017-01-26] MEDS ORDERED: fentaNYL (PF) 50 MCG/ML 2 ML AMP ONE (07:52)
[2017-01-26] MEDS ORDERED: MIDAZOLAM 2 MG/2 ML VIAL ONE (07:52)
[2017-01-26] MEDS ORDERED: BENZOCAINE SPRAY 100 APPLIC/CAN MUCOUS MEM ONE ×3 (07:58→08:00)
[2017-01-26] MEDS ORDERED: fentaNYL (PF) 50 MCG/ML 2 ML AMP IV ONE (08:00)
[2017-01-26] MEDS: MIDAZOLAM 2 MG/2 ML VIAL IVP ONE ×2 (08:00→08:14)
[2017-01-26] MEDS ORDERED: SODIUM CHLORIDE 0.9% 1,000 ML IV SCH (08:15)
--- NOTE | 2017-01-26 08:38 | ECHOT ---
DATE OF SERVICE: INDICATION: Chronic atrial fibrillation prior to atrial fibrillation ablation. PROCEDURE NOTE: After obtaining informed consent, transesophageal echocardiogram was performed in the left lateral position using an Omni plane probe. Local and IV sedation were obtained using Xylocaine spray, 2 mg of Versed and 25 mcg of fentanyl. Patient tolerated the procedure well without any obvious immediate complications. The total sedation time was around 10 to 12 minutes. FINDINGS: 1. There is no intracardiac thrombus within the left atrial appendage, left atrium, right atrium, right ventricle or left ventricle. 2. Left ventricle has normal size and systolic function. 3. Interatrial septum shows lipomatous hypertrophy without any evidence of [id number] shunt by color flow Doppler or [id number] shunt by agitated saline contrast study. 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 4. Mitral valve shows mild to moderate central mitral regurgitation. 5. Tricuspid valve appears normal. 6. Aortic valve is a 3 leaflet valve. There is no evidence of ( ) or regurgitation. 7. Aorta shows mild to moderate atherosclerotic changes. CONCLUSIONS: 1. No intracardiac thrombus. 2. Mild to moderate mitral regurgitation. 3. Lipomatous hypertrophy with delayed appearance of saline contrast on to the left side. PLAN: Patient can proceed with A. fib ablation.
--- NOTE | 2017-01-26 08:40 | LTR ---
January 26, 2017 TRAVIS ADEN MD RE: Frankie Sage Dear Travis: I performed transesophageal echo on Frankie Sage as part of his preparation for A. fib ablation next week. The patient does not have intracardiac thrombus and he is ready to undergo ablation. Thank you for letting me participate in the care of this pleasant gentleman. Sincerely, VIELKA STERLING MD
[2017-01-26 09:16] VITALS: TEMP 98.2
[2017-01-26 09:18] VITALS: BP 134/75; PULSE 68
== END 2017-01-26 09:39 | disposition home or self-care (01) ==
LOC: CATHCVL 06:21
PROVIDERS: ATTEND Internal Medicine Cardiovascular Disease
DX: I48.0 Paroxysmal atrial fibrillation (principal); I10 Essential (primary) hypertension; E78.2 Mixed hyperlipidemia; I34.0 Nonrheumatic mitral (valve) insufficiency; E11.9 Type 2 diabetes mellitus without complications; Z79.84 Long term (current) use of oral hypoglycemic drugs; Z79.02 Long term (current) use of antithrombotics/antiplatelets; Z79.82 Long term (current) use of aspirin; Z79.899 Other long term (current) drug therapy
CPT/HCPCS: 93312; 93320; 93325; J2250; J3010

== ENCOUNTER 2017-02-01 05:41 | Day surgery (SDC) | payer MEDICARE ==
[2017-01-29 17:46] VITALS: BMI 33.9
[2017-02-01] MEDS ORDERED: HYDROmorphone 1 MG/ML 1 ML SYRINGE IVP PRN (05:43)
[2017-02-01] MEDS ORDERED: ONDANSETRON 4 MG/2 ML VIAL IVP ONE (05:43)
[2017-02-01] MEDS: SODIUM CHLORIDE 0.9% 1,000 ML IV SCH (06:42)
[2017-02-01 06:45] LABS: Glucose,Whole Blood 93 mg/dL (75-99)
[2017-02-01] MEDS ORDERED: ISOPROTERENOL 250 MCG/1.25 ML SYR IV ONE (07:44)
[2017-02-01] MEDS ORDERED: ONDANSETRON 4 MG/2 ML VIAL ONE (07:44)
[2017-02-01] MEDS ORDERED: PROPOFOL 10 MG/ML 20 ML VIAL IV ONE (07:44)
[2017-02-01] MEDS ORDERED: SUCCINYLCHOLINE CHLORIDE 100 MG/5 ML SYR IV ONE (07:44)
[2017-02-01] MEDS ORDERED: MIDAZOLAM 2 MG/2 ML VIAL ONE (07:44)
[2017-02-01] MEDS ORDERED: ePHEDrine 50 MG/ML 1 ML AMP ONE (07:44)
[2017-02-01] MEDS ORDERED: fentaNYL (PF) 50 MCG/ML 2 ML AMP ONE (07:44)
[2017-02-01] MEDS ORDERED: PHENYLEPHRINE-0.9% NACL SYG 1 MG/10 ML SYRINGE ONE (07:44)
[2017-02-01] MEDS ORDERED: ATROPINE SULFATE 0.4 MG/ML 1 ML VIAL ONE (07:44)
[2017-02-01] MEDS ORDERED: LIDOCAINE 2% INJ 20 MG/ML (20 ML MDV) ONE ×2 (08:08)
[2017-02-01] MEDS ORDERED: LIDOCAINE 2% INJ 20 MG/ML SQ ONE (08:22)
[2017-02-01] MEDS ORDERED: HEPARIN SODIUM 1,000 UNIT/ML VIAL IV ONE ×2 (09:22→10:12)
[2017-02-01] MEDS ORDERED: HEPARIN SODIUM,PORCINE/D5W PMX 25,000 UNIT in DEXTROSE/WATER 1 500ML.BAG IV ONE (09:22)
[2017-02-01] MEDS ORDERED: PROTAMINE SULFATE 10 MG/ML 25 ML VIAL IV ONE (11:30)
[2017-02-01] MEDS ORDERED: SODIUM CHLORIDE 0.9% 1,000 ML IV ONE (11:36)
[2017-02-01] MEDS ORDERED: ACETAMINOPHEN TAB 325 MG TAB PO PRN (11:43)
[2017-02-01] MEDS ORDERED: HYDROcodone/APAP 5-325MG 1 EACH TAB PO PRN (11:43)
[2017-02-01] MEDS ORDERED: FLECAINIDE 50 MG TAB PO STA (11:47)
[2017-02-01] MEDS ORDERED: IOHEXOL 350 MG/ML 100 ML BOTTLE INJ ONE (11:49)
--- NOTE | 2017-02-01 12:58 | CE ---
DATE OF SERVICE: Frankie Sage is 66-year-old male patient who has paroxysmal atrial fibrillation. He is brought in for a pulmonary vein isolation, cryoablation after a detailed discussion with him and his . The patient was brought to the EP lab in a fasting state. Written informed consent was obtained prior to the procedure. The procedure was performed under general anesthesia. During isolation during cryoablation of the pulmonary veins, there was no paralytic agent on board. Patient was in sinus rhythm at the start of the study, sinus cycle length 908 ms, MA interval 158 ms, QRS 98 ms, QT 433 ms, AH 54 ms, HV 48 ms, sinus recovery times at 500 and 400 ms of 584 and 552 ms, Isuprel was started and AV node Wenckebach block was 270 ms, atrial ERP 400/220 ms with CS pacing and right bundle branch block ( ) noted. Atrial ERP was 450/200 ms, ventricular pacing was performed. No other SVT was induced. Atrial fibrillation was induced with Isuprel, atrial fibrillation was also induced when mapping and moving the catheter around the left inferior pulmonary. Atrial fibrillation terminated when the left inferior pulmonary vein was isolated, during cryoablation lesion. Venous sheaths were placed in the right and left femoral veins, femoral arterial line was placed for hemodynamic monitoring and sampling, ACT was maintained about 300. Initially, diagnostic catheters were placed in the high right atrium, coronary sinus, HIS bundle and RV. Later intracardiac echo catheter and transseptal catheterization on the cryo-balloon, sheath and catheter were placed. Left and right transseptal catheterization was performed, LA pressure was 16 x 5 x 10 mmHg, RA pressure was 12 x 4 x 7 mmHg, RA pressure was 12 x 4 x 7 mmHg. The cryo-balloon along with the Achieve catheter were placed sequentially starting in the left superior, then left inferior, then right superior and right inferior veins. For the right-sided veins, diaphragmatic pacing was performed about the pulmonary veins and both the manual intensity, fluoroscopic and the electrographic method were used. The ( ) of the diaphragm remained intact at the end of the procedure and this was documented. the left side lab in the diaphragm remained at the end of the procedure and this was documented. The left superior pulmonary vein cryoablation involved 2 sets of lesions, the first one for 240 seconds, the second 1 for 90 seconds, -30 degree temperature was achieved by 30 seconds on both lesions and about -51 to -56 degrees centigrade was achieved by 60 seconds, clot time was 25 seconds. Cryoablation of the left inferior vein. Two cryo-ablations were delivered, the first 180 seconds and the second again 480 seconds. The times were 8.1 and 10 seconds, -43 degrees centigrade and -40 to 60 degrees centigrade with achieved by 60 seconds. Right superior pulmonary vein cryoablation ( ) one lesion 40 seconds. -30 degrees centigrade was achieved by 30 seconds and -48 degrees by 60 seconds. Clot time was 13.9 seconds. The right inferior pulmonary vein received 2 lesions one for 120 ms the other for 180 ms, -39 degrees centigrade was achieved within 60 seconds and for the second lesion -48 degrees centigrade was achieved within 60 second. The clot times are 5.8 seconds and 10.3 seconds respectively. Venogram was performed at each ( ) occlusion and excellent cryoablation lesions were delivered and the occlusion was excellent. All veins are occluded well and complete isolation was documented by moving the Achieve catheter around the os of the pulmonary vein to document complete entrance block. During manipulation around the left inferior pulmonary vein, atrial fibrillation was induced and this terminated during cryo-ablation. At the end of the procedure, heparin was reversed and sheaths were removed. The patient was extubated. On Isuprel, the patient went into atrial fibrillation and he required an electrical cardioversion. This was an augmented atrial tachycardia at about 200 to 250 ms. PLAN: Continue flecainide 50 mg twice daily. If he has residual atrial tachycardia, then radiofrequency ablation of the atrial tachycardia would be considered in the future.
[2017-02-01] MEDS ORDERED: ACETAMINOPHEN IV (For NPO) 1,000 MG in EMPTY BAG 1 BAG IVPB ONE (13:00)
--- NOTE | 2017-02-01 13:00 | LTR ---
February 01, 2017 RE: Franike Sage Stephania Dear Dr. Canela; I had the pleasure of seeing Frankie Sage in electrophysiology followup. Frankie underwent successful cryoablation of all 4 pulmonary veins for management of paroxysmal atrial fibrillation. His veins were completely isolated and the cryolesions sites delivered effectively. Hopefully with cryoablation and low dose flecainide, he will maintain sinus rhythm. We did note a tendency for an atrial tachycardia and if this becomes recurrent in the future, then he will require focal ablation with radiofrequency in the future, if needed. Thank you for entrusting me with the care of your patient. Warm regards. Sincerely, ZAKI WELDON MD
[2017-02-01 13:07] LABS: Glucose,Whole Blood 131 mg/dL (75-99)
[2017-02-01] MEDS: LACTATED RINGERS 1,000 ML IV SCH (16:17)
[2017-02-01 17:17] LABS: Glucose,Whole Blood 198 mg/dL (75-99)
[2017-02-01 20:38] LABS: Glucose,Whole Blood 199 mg/dL (75-99)
[2017-02-01] MEDS: metFORMIN 500 MG TAB PO SCH (21:09)
[2017-02-01] MEDS: APIXABAN 5 MG TAB PO SCH (21:10)
[2017-02-01] MEDS: FLECAINIDE 50 MG TAB PO SCH (21:10)
[2017-02-02] MEDS: SODIUM CHLORIDE 0.9% 1,000 ML IV SCH (05:02)
[2017-02-02] MEDS: LACTATED RINGERS 1,000 ML IV SCH (05:02)
[2017-02-02 05:31] LABS: Glucose,Whole Blood 170 mg/dL (75-99)
[2017-02-02] MEDS ORDERED: glipiZIDE 5 MG TAB PO SCH (07:30)
--- NOTE | 2017-02-02 08:31 | DS ---
DATE OF ADMISSION: 02/01/2017 DATE OF DISCHARGE: Henry Sage is a patient of Dr. Esteban and Dr. Salazar who paroxysmal atrial fibrillation with rapid ventricular response, symptomatic. He underwent cryoablation yesterday successfully with complete isolation of all 4 veins. He will be monitored overnight on telemetry. His groins were healed well this morning. There is no hematoma. There is no tenderness at all. Heart sounds are normal. Breath sounds are normal. No rhonchi. No crackles. No S3 gallop. No murmurs. Blood pressure 130/88 millimeters of Hg. He is afebrile, 96.8 degrees Fahrenheit. Respirations are normal. ABDOMEN: Soft, nontender. EXTREMITIES: Warm. IMPRESSION: 1. Paroxysmal atrial fibrillation with rapid ventricular response. 2. Hypertension, controlled on amlodipine. 3. Diabetes, adult-onset on metformin and glipizide. 4. Anticoagulation with Apixaban, SKYLER VAS score of at least 3. 5. Dyslipidemia on Zocor 80 mg daily. PLAN: Continue flecainide 50 mg twice daily for suppression of extrapulmonary fossae of A. fib. Follow with Dr. Esteban next week.
[2017-02-02] MEDS ORDERED: ATORVASTATIN 40 MG TAB PO SCH (09:00)
[2017-02-02] MEDS ORDERED: ASPIRIN 81 MG CHEW PO SCH (09:00)
[2017-02-02] MEDS ORDERED: amLODIPine 10 MG TAB PO SCH (09:00)
[2017-02-02] MEDS: APIXABAN 5 MG TAB PO SCH (09:52)
[2017-02-02] MEDS: FLECAINIDE 50 MG TAB PO SCH (09:52)
[2017-02-02] MEDS: metFORMIN 500 MG TAB PO SCH (09:53)
[2017-02-02 11:32] LABS: Glucose,Whole Blood 107 mg/dL (75-99)
[2017-02-02 11:58] VITALS: BP 162/71; PULSE 83; RESP 20; TEMP 96.8
== END 2017-02-02 13:11 | disposition home or self-care (01) ==
LOC: CATHEP 05:41 → 6SEL 11:35 → CATHEP 02-02 13:11
PROVIDERS: ATTEND Internal Medicine Clinical Cardiac Electrophysiology
DX: I48.0 Paroxysmal atrial fibrillation (principal); Z79.01 Long term (current) use of anticoagulants; I10 Essential (primary) hypertension; E78.2 Mixed hyperlipidemia; E11.9 Type 2 diabetes mellitus without complications; Z79.84 Long term (current) use of oral hypoglycemic drugs; Z79.82 Long term (current) use of aspirin; Z79.899 Other long term (current) drug therapy; Z79.02 Long term (current) use of antithrombotics/antiplatelets; I25.2 Old myocardial infarction; Z87.891 Personal history of nicotine dependence
CPT/HCPCS: 85347; 93623; 93662; 93609; 93656; C1769 ×3; C1894 ×4; C1730 ×4; C1759; C1893; C1733; C1766; J2001; J2720; J2250; J0461; Q9967; J2405; J1644 ×2; J3010; J2370; J0330; J2704

== ENCOUNTER 2017-02-20 08:24 | Emergency (ER) | payer MEDICARE, OTHER ==
--- NOTE | 2017-02-20 08:46 | ED ---
General Adult HPI - General Chief complaint: Shortness of Breath Stated complaint: Diff breathing Time Seen by Provider: 02/20/17 08:28 Source: patient, family, RN notes reviewed, old records reviewed Mode of arrival: wheelchair Limitations: no limitations - History of Present Illness Initial comments: This is a 66-year-old patient in the ER for evaluation, patient coming in the ER for evaluation of heart racing, patient did admit to minimal shortness of breath, but also pending at rash over entire body, severe rest red itchy rash, unknown exposure. Patient has no specific chest pain at this time, no recent fevers. No cough or congestion. - Related Data Home Medications Medication Instructions Recorded Confirmed Aspirin 81 mg PO DAILY 05/21/14 02/20/17 glipiZIDE [Glucotrol] 5 mg PO AC-BRKFST 05/21/14 02/20/17 Simvastatin [Zocor] 80 mg PO DAILY 12/28/16 02/20/17 Escitalopram [Lexapro] 10 mg PO DAILY 02/20/17 02/20/17 metFORMIN HCL 1,000 mg PO BID 02/20/17 02/20/17 Previous Rx's Medication Instructions Recorded Apixaban [Eliquis] 5 mg PO BID #60 tab 01/05/17 Flecainide [Tambocor] 50 mg PO Q12HR #60 tab 01/05/17 Allergies Allergy/AdvReac Type Severity Reaction Status Date / Time No Known Allergies Allergy Verified 02/20/17 08:44 Review of Systems ROS Statement: Those systems with pertinent positive or pertinent negative responses have been documented in the HPI. ROS Other: All systems not noted in ROS Statement are negative. Past Medical History Past Medical History: Atrial Fibrillation, Diabetes Mellitus, Hyperlipidemia, Hypertension, Myocardial Infarction ([place]) Additional Past Medical History / Comment(s): WAS TOLD HAS SLIGHT [place] YEARS AGO Last Myocardial Infarction Date:: UNK History of Any Multi-Drug Resistant Organisms: None Reported Past Surgical History: Hernia Repair, Orthopedic Surgery Additional Past Surgical History / Comment(s): 01/26/17 HOWIE. LT SHOULDER,LT KNEE , RT WRIST SURGERY,ORIF LT LOWER LEG, BILAT CATARACTS REMOVED, Ablation (02/01/17 ) Past Anesthesia/Blood Transfusion Reactions: Motion Sickness Past Psychological History: Depression Additional Psychological History / Comment(s): PAST HX, NO PROBLEMS AT THIS TIME Smoking Status: Former smoker Past Alcohol Use History: None Reported Additional Past Alcohol Use History / Comment(s): QUIT SMOKING APPROX 1999, STARTED SMOKING 1967 Past Drug Use History: None Reported - Past Family History Mother Family Medical History: No Reported History Father Additional Family Medical History / Comment(s): IN AUTO ACC. General Exam - General Exam Comments Initial Comments: Diffuse erythematous rash palpable blanchable over entire chest and face Limitations: no limitations General appearance: alert, in no apparent distress Head exam: Present: atraumatic, normocephalic, normal inspection Eye exam: Present: normal appearance, PERRL, EOMI. Absent: scleral icterus, conjunctival injection, periorbital swelling ENT exam: Present: normal exam, mucous membranes moist Neck exam: Present: normal inspection. Absent: tenderness, meningismus, lymphadenopathy Respiratory exam: Present: normal lung sounds bilaterally, decreased breath sounds, prolonged expiratory. Absent: respiratory distress, wheezes, rales, rhonchi, stridor Cardiovascular Exam: Present: regular rate, normal rhythm, tachycardia, normal heart sounds. Absent: systolic murmur, diastolic murmur, rubs, gallop, clicks GI/Abdominal exam: Present: soft, normal bowel sounds. Absent: distended, tenderness, guarding, rebound, rigid Extremities exam: Present: normal inspection, full ROM, normal capillary refill. Absent: tenderness, pedal edema, joint swelling, calf tenderness Back exam: Present: normal inspection Neurological exam: Present: alert, oriented X3, CN II-XII intact Psychiatric exam: Present: normal affect, normal mood Skin exam: Present: warm, dry, intact, normal color. Absent: rash Course Vital Signs 02/20/17 02/20/17 02/20/17 08:35 08:38 08:41 Temperature 97.0 F L 96.8 F L Pulse Rate 120 H 125 H Respiratory 18 20 Rate Blood Pressure 136/72 136/72 O2 Sat by Pulse 91 L 93 L Oximetry 02/20/17 02/20/17 02/20/17 09:14 09:25 10:32 Temperature Pulse Rate 114 H 116 H 97 Respiratory 18 Rate Blood Pressure 155/69 O2 Sat by Pulse 97 Oximetry - Reevaluation(s) Reevaluation #1: 02/20/17 12:09 Patient's symptoms improved/resolved with steroids, breathing treatment Reevaluation #2: 02/20/17 12:09 Patient remains without complaint EKG Findings - EKG Comments: EKG Findings:: EKG shows sinus tachycardia rate 124, NV 156, QRS 96, QTC 445 Medical Decision Making - Medical Decision Making 66 male here for evaluation of likely ALLERGIC reaction, patient symptoms resolved, baited with steroids and antihistamines. Will discharge on same. Patient can be discharged home - Lab Data Result diagrams: 02/20/17 08:48 02/20/17 08:48 Lab Results 02/20/17 02/20/17 02/20/17 Range/Units 08:48 08:48 08:48 WBC 7.7 (3.8-10.6) k/uL RBC 6.18 H (4.30-5.90) m/uL Hgb 16.5 (13.0-17.5) gm/dL Hct 52.9 (39.0-53.0) % MCV 85.6 (80.0-100.0) fL MCH 26.7 (25.0-35.0) pg MCHC 31.2 (31.0-37.0) g/dL RDW 13.9 (11.5-15.5) % Plt Count 330 (150-450) k/uL Neutrophils % 60 % Lymphocytes % 31 % Monocytes % 4 % Eosinophils % 1 % Basophils % 0 % Neutrophils # 4.6 (1.3-7.7) k/uL Lymphocytes # 2.4 (1.0-4.8) k/uL Monocytes # 0.3 (0-1.0) k/uL Eosinophils # 0.1 (0-0.7) k/uL Basophils # 0.0 (0-0.2) k/uL Hypochromasia Slight Sodium 139 (137-145) mmol/L Potassium 4.5 (3.5-5.1) mmol/L Chloride 102 (98-107) mmol/L Carbon Dioxide 23 (22-30) mmol/L Anion Gap 14 mmol/L BUN 22 H (9-20) mg/dL Creatinine 1.19 (0.66-1.25) mg/dL Est GFR (MDRD) Af Amer >60 (>60 ml/min/1.73 sqM) Est GFR (MDRD) Non-Af >60 (>60 ml/min/1.73 sqM) Glucose 228 H (74-99) mg/dL Calcium 10.2 (8.4-10.2) mg/dL Phosphorus 3.4 (2.5-4.5) mg/dL Magnesium 1.7 (1.6-2.3) mg/dL Total Bilirubin 0.9 (0.2-1.3) mg/dL AST 22 (17-59) U/L ALT 31 (21-72) U/L Alkaline Phosphatase 180 H (38-126) U/L Total Creatine Kinase 98 (55-170) U/L CK-MB (CK-2) 1.6 (0.0-2.4) ng/mL CK-MB (CK-2) Rel Index 1.6 Troponin I <0.012 (0.000-0.034) ng/mL NT-Pro-B Natriuret Pep pg/mL Total Protein 6.8 (6.3-8.2) g/dL Albumin 3.9 (3.5-5.0) g/dL TSH 0.781 (0.465-4.680) mIU/L Urine Color Urine Appearance (Clear) Urine pH (5.0-8.0) Ur Specific [place] (1.001-1.035) Urine Protein (Negative) Urine Glucose (UA) (Negative) Urine Ketones (Negative) Urine Blood (Negative) Urine Nitrite (Negative) Urine Bilirubin (Negative) Urine Urobilinogen (<2.0) mg/dL Ur Leukocyte Esterase (Negative) Urine RBC (0-5) /hpf Urine WBC (0-5) /hpf Ur Squamous Epith Cells (0-4) /hpf Urine Mucus (None) /hpf 02/20/17 02/20/17 Range/Units 08:48 10:15 WBC (3.8-10.6) k/uL RBC (4.30-5.90) m/uL Hgb (13.0-17.5) gm/dL Hct (39.0-53.0) % MCV (80.0-100.0) fL MCH (25.0-35.0) pg MCHC (31.0-37.0) g/dL RDW (11.5-15.5) % Plt Count (150-450) k/uL Neutrophils % % Lymphocytes % % Monocytes % % Eosinophils % % Basophils % % Neutrophils # (1.3-7.7) k/uL Lymphocytes # (1.0-4.8) k/uL Monocytes # (0-1.0) k/uL Eosinophils # (0-0.7) k/uL Basophils # (0-0.2) k/uL Hypochromasia Sodium (137-145) mmol/L Potassium (3.5-5.1) mmol/L Chloride (98-107) mmol/L Carbon Dioxide (22-30) mmol/L Anion Gap mmol/L BUN (9-20) mg/dL Creatinine (0.66-1.25) mg/dL Est GFR (MDRD) Af Amer (>60 ml/min/1.73 sqM) Est GFR (MDRD) Non-Af (>60 ml/min/1.73 sqM) Glucose (74-99) mg/dL Calcium (8.4-10.2) mg/dL Phosphorus (2.5-4.5) mg/dL Magnesium (1.6-2.3) mg/dL Total Bilirubin (0.2-1.3) mg/dL AST (17-59) U/L ALT (21-72) U/L Alkaline Phosphatase (38-126) U/L Total Creatine Kinase (55-170) U/L CK-MB (CK-2) (0.0-2.4) ng/mL CK-MB (CK-2) Rel Index Troponin I (0.000-0.034) ng/mL NT-Pro-B Natriuret Pep 86 pg/mL Total Protein (6.3-8.2) g/dL Albumin (3.5-5.0) g/dL TSH (0.465-4.680) mIU/L Urine Color Yellow Urine Appearance Clear (Clear) Urine pH 5.5 (5.0-8.0) Ur Specific [place] 1.045 H (1.001-1.035) Urine Protein 2+ H (Negative) Urine Glucose (UA) 2+ H (Negative) Urine Ketones Negative (Negative) Urine Blood Trace H (Negative) Urine Nitrite Negative (Negative) Urine Bilirubin Negative (Negative) Urine Urobilinogen <2.0 (<2.0) mg/dL Ur Leukocyte Esterase Negative (Negative) Urine RBC 4 (0-5) /hpf Urine WBC 3 (0-5) /hpf Ur Squamous Epith Cells 1 (0-4) /hpf Urine Mucus Rare H (None) /hpf - Radiology Data Radiology results: report reviewed (Chest x-ray, x-ray soft tissue neck, CT chest is negative for acute disease), image reviewed Disposition Clinical Impression: Allergic reaction, Allergic urticaria Disposition: HOME SELF-CARE Condition: Good Instructions: Anaphylaxis (ED), Urticaria (ED) Referrals: Hilton Salazar MD [Primary Care Provider] - 1-2 days
[2017-02-20] MEDS ORDERED: SODIUM CHLORIDE 0.9% 500 ML IV STA (08:51)
[2017-02-20] MEDS ORDERED: SODIUM CHLORIDE 0.9% 1,000 ML IV STA (08:51)
[2017-02-20] MEDS ORDERED: RX INFO: IV CONTRAST WAS GIVEN 1 EACH MISC MISCELLANE PRN (08:51)
[2017-02-20] MEDS ORDERED: IPRATROPIUM 0.5 MG/2.5 ML NEBU INHALATION STA (08:52)
[2017-02-20] MEDS ORDERED: LEVALBUTEROL NEB 1.25 MG/3 ML AMP INHALATION STA (08:52)
[2017-02-20] MEDS ORDERED: methylPREDNISolone SOD SUCCI 125 MG/2 ML VIAL IV STA (08:52)
[2017-02-20] MEDS ORDERED: diphenhydrAMINE 50 MG/ML 1 ML VIAL IVP STA (08:52)
[2017-02-20] MEDS ORDERED: FAMOTIDINE 20 MG/2 ML VIAL IV STA (08:52)
[2017-02-20 09:07] LABS: Basophils % (A) 0 %; CH 26.1; CHCM 30.7; Eosinophils # (A) 0.1 k/uL (0-0.7); Eosinophils % (A) 1 %; HCT 52.9 % (39.0-53.0); HDW 2.34; HGB 16.5 gm/dL (13.0-17.5); Hypochromasia Slight; Luc # (Auto) 0.31; Luc % (Auto) 4; Lymphocytes # (A) 2.4 k/uL (1.0-4.8); Lymphocytes % (A) 31 %; MCH 26.7 pg (25.0-35.0); MCHC 31.2 g/dL (31.0-37.0); MCV 85.6 fL (80.0-100.0); Mean Platelet Volume 7.7; Monocytes # (A) 0.3 k/uL (0-1.0); Monocytes % (A) 4 %; Neutrophils # (A) 4.6 k/uL (1.3-7.7); Neutrophils % (A) 60 %; RBC 6.18 m/uL (4.30-5.90); RDW 13.9 % (11.5-15.5); WBC 7.7 k/uL (3.8-10.6)
--- NOTE | 2017-02-20 09:21 | XR ---
EXAMINATION TYPE: XR chest 1V portable DATE OF EXAM: 02/20/2017 9:09 AM COMPARISON: Prior chest x-ray January 02, 2017. HISTORY: COPD with difficulty in breathing. TECHNIQUE: Single AP portable frontal upright view of the chest is obtained. FINDINGS: There is chronic parenchymal change without suspicious focal air space opacity, pleural ef fusion, or pneumothorax seen bilaterally. The cardiac silhouette size is within normal limits. Persi stent widening left acromioclavicular joint may be product of prior surgery or distal clavicular rese ction. IMPRESSION: Chronic changes without acute pulmonary process.
[2017-02-20 09:27] LABS: ALT 31 U/L (21-72); AST 22 U/L (17-59); Alkaline Phosphatase 180 U/L (38-126); Anion Gap 14 mmol/L; Blood Urea Nitrogen 22 mg/dL (9-20); Calcium 10.2 mg/dL (8.4-10.2); Carbon Dioxide 23 mmol/L (22-30); Chloride 102 mmol/L (98-107); Glucose 228 mg/dL (74-99); Magnesium 1.7 mg/dL (1.6-2.3); Non-African American GFR(MDRD) >60 (>60 ml/min/1.73 sqM); Phosphorous 3.4 mg/dL (2.5-4.5); Potassium 4.5 mmol/L (3.5-5.1); Sodium 139 mmol/L (137-145); Total Bilirubin 0.9 mg/dL (0.2-1.3); Total Protein 6.8 g/dL (6.3-8.2)
[2017-02-20 09:28] LABS: Creatine Kinase 98 U/L (55-170)
[2017-02-20 09:41] LABS: Creatine Kinase MB 1.6 ng/mL (0.0-2.4); Troponin I <0.012 ng/mL (0.000-0.034)
[2017-02-20 10:34] VITALS: RESP 18
--- NOTE | 2017-02-20 10:41 | XR ---
EXAMINATION TYPE: XR soft tissue neck DATE OF EXAM: 02/20/2017 10:14 AM COMPARISON: NONE HISTORY: Difficulty breathing TECHNIQUE: 2 views soft tissue neck submitted FINDINGS: Severe degenerative disc disease C5-C6. Anterolisthesis C4 on C5 with multilevel facet arth ropathy. Airways patent. Epiglottis has a normal appearance. Prevertebral soft tissue structures are within no rmal limits. Upper lung apices are clear. Density along the posterior margin left fifth rib likely re lated to superimposed structures no abnormality seen on recent chest x-ray. IMPRESSION: 1. No definite acute process. 2. Severe multilevel degenerative disc disease and facet arthropathy
[2017-02-20 10:51] LABS: Appearance,Urine Clear (Clear); Bilirubin,Urine Negative (Negative); Glucose,Urine (UA) 2+ (Negative); Ketones,Urine Negative (Negative); Leukocyte Esterase,Urine Negative (Negative); Mucus,Urine Rare /hpf; Nitrite,Urine Negative (Negative); PH, Urine 5.5 (5.0-8.0); Particle Count 7259; Protein,Urine 2+ (Negative); RBC,Urine 4 /hpf (0-5); Specific Gravity,Urine 1.045 (1.001-1.035); Squamous Epithelial Cell,Urine 1 /hpf (0-4); UA Billing (MACRO vs. MICRO) MICRO; Urobilinogen,Urine <2.0 mg/dL (<2.0); WBC,Urine 3 /hpf (0-5)
--- NOTE | 2017-02-20 12:01 | CT ---
EXAMINATION TYPE: CT angio chest DATE OF EXAM: 02/20/2017 9:49 AM COMPARISON: NONE HISTORY: Difficulty breathing with stabbing pain, history of ablation [address] DLP: 584 mGycm. Automated Exposure Control for Dose Reduction was Utilized. CONTRAST: CTA scan of the thorax is performed with IV Contrast, patient injected with 100 mL of Omnipaque 350, pulmonary embolism protocol. MIP Images are created on CT scanner and reviewed. FINDINGS: LUNGS: Mild to moderate underlying emphysematous change is present. There is 8 x 7 mm nodule posterio r right lower lobe on axial image 92. Some dependent atelectatic change is present in both lower lobe s. No pleural effusion or pneumothorax is seen bilaterally. Tracheobronchial tree is patent. MEDIASTINUM: There is satisfactory enhancement of the pulmonary artery and its branches, there is no CT evidence for pulmonary embolism. There are no greater than 1 cm hilar or mediastinal lymph nodes. No cardiomegaly or pericardial effusion is seen. No suspicious mediastinal fluid collection is see n. There is mild to moderate Concentric diffuse wall thickening along course of the esophagus mid to distal aspects. Esophagitis is not excluded. Clinical correlation advised. There is mild mixed plaque in the descending thoracic aorta. OTHER: There is low dense nodular thickening to both adrenal glands however Hounsfield units average between 20 and 25. Right adrenal nodule measures 1.4 x 1.2 cm on axial image 140. Left adrenal nodule measures 1.5 x 1.5 cm on axial image 149. Both nonspecific range based on Hounsfield units. There is possible small hyperdense polyp or subcentimeter calculus in the dependent gallbladder on ax ial image 146. No surrounding inflammatory changes seen. There is multilevel disc desiccation centered in the mid thoracic spine. There is disc space narrowin g and sclerosis with mild spurring centered anteriorly at T7-T8 level. IMPRESSION: 1. No CT evidence for pulmonary embolism. 2. No suspicious acute pulmonary process. 3. Possible diffuse esophagitis involving mid to distal esophagus, clinical correlation advised. 4. Suspicious 8 x 7 mm parenchymal nodule in the right lower lobe, appropriate follow-up as per Fleis chner Society recommendations is follow-up CT in 6 months time for high risk patient.
[2017-02-20 12:20] VITALS: BP 131/56; PULSE 83; TEMP 97.1
== END 2017-02-20 12:28 | disposition home or self-care (01) ==
LOC: EC 08:24
DX: L50.0 Allergic urticaria (principal); E11.9 Type 2 diabetes mellitus without complications; I10 Essential (primary) hypertension; E78.5 Hyperlipidemia, unspecified; Z87.891 Personal history of nicotine dependence; Z79.84 Long term (current) use of oral hypoglycemic drugs; Z79.82 Long term (current) use of aspirin; Z79.899 Other long term (current) drug therapy
CPT/HCPCS: 99285; 96374; 96375 ×2; 96361 ×3; 36415; 94640; 93005; 83880; 80053; 82550; 82553; 83735; 84100; 84443; 84484; 85025; 81001; 87086; 87077; 87186; 71010; 70360; 71275; J1200; J2930; Q9967

== ENCOUNTER 2017-04-25 08:22 | Day surgery (SDC) | payer MEDICARE, OTHER ==
[2017-04-20 08:50] VITALS: BMI 33.9
[~2017-04-25 08:22] MED LIST changes: +DEXAMETHASONE SOD PHOSPHATE 10 MG/ML 1 ML VIAL IV ONE; -FAMOTIDINE 20 MG/2 ML VIAL IV PRN; -HYDROmorphone 1 MG/ML 1 ML SYRINGE IVP PRN; -LACTATED RINGERS 1,000 ML IV SCH; +SCOPOLAMINE 1.5MG/72HR PATCH TRANSDERM ONE
[2017-04-25] MEDS: LACTATED RINGERS 1,000 ML IV SCH (08:57)
[2017-04-25 09:00] LABS: Glucose,Whole Blood 133 mg/dL (75-99)
--- NOTE | 2017-04-25 09:56 | P.GSHP ---
History of Present Illness H&P Date: 04/25/17 Chief Complaint: Incarcerated left inguinal hernia This is a 66-year-old male who presents today for laparoscopic robotic-assisted repair of a left inguinal incarcerated hernia. Patient was really scheduled for hernia surgery approximately 2 months ago. At that time he had an arrhythmia and his surgery was canceled. He has been cleared by cardiology. Past Medical History Past Medical History: Atrial Fibrillation, Cancer, COPD, Diabetes Mellitus, Hyperlipidemia, Hypertension, Myocardial Infarction ([place]) Additional Past Medical History / Comment(s): WAS TOLD HAS SLIGHT [place] YEARS AGO. HX Skin Cancer. Last Myocardial Infarction Date:: UNK History of Any Multi-Drug Resistant Organisms: None Reported Past Surgical History: Cardiac Ablation, Hernia Repair, Orthopedic Surgery Additional Past Surgical History / Comment(s): 01/26/17 HOWIE. LT SHOULDER,LT KNEE , RT WRIST SURGERY,ORIF LT LOWER LEG, BILAT CATARACTS REMOVED, Cardiac Ablation (02/01/17) Past Anesthesia/Blood Transfusion Reactions: No Reported Reaction Smoking Status: Former smoker - Past Family History Mother Family Medical History: No Reported History Father Additional Family Medical History / Comment(s): IN AUTO ACC. Medications and Allergies Home Medications Medication Instructions Recorded Confirmed Type glipiZIDE [Glucotrol] 5 mg PO BID 05/21/14 04/25/17 History Simvastatin [Zocor] 80 mg PO HS 12/28/16 04/25/17 History metFORMIN HCL 1,000 mg PO BID 02/20/17 04/25/17 History Flecainide [Tambocor] 50 mg PO BID 04/20/17 04/25/17 History Allergies Allergy/AdvReac Type Severity Reaction Status Date / Time No Known Allergies Allergy Verified 04/25/17 08:57 Surgical - Exam Vital Signs Temp Pulse Resp BP Pulse Ox 98. F 68 16 157/82 97 04/25/17 08:47 04/25/17 08:47 04/25/17 08:47 04/25/17 08:47 04/25/17 08:47 - General well developed, no distress - Eyes PERRL - ENT normal pinna - Neck no masses - Respiratory normal expansion - Cardiovascular Rhythm: regular - Abdomen Abdomen: soft, non tender Hernia: inguinal (Left incarcerated inguinal hernia) - Integumentary no rash Results - Labs Abnormal Lab Results - Last 24 Hours (Table) 04/25/17 Range/Units 08:53 POC Glucose (mg/dL) 133 H (75-99) mg/dL Assessment and Plan Plan: Incarcerated left inguinal hernia. We'll perform laparoscopic robotic assistance repair.
[2017-04-25] MEDS ORDERED: ETOMIDATE 2 MG/ML 10 ML VIAL ONE (10:13)
[2017-04-25] MEDS ORDERED: LIDOCAINE 1% INJ 10MG/ML (20 ML MDV) ONE (10:13)
[2017-04-25] MEDS ORDERED: SUCCINYLCHOLINE CHLORIDE 100 MG/5 ML SYR IV ONE (10:13)
[2017-04-25] MEDS ORDERED: NEOSTIGMINE 1 MG/ML 10 ML VIAL ONE (10:13)
[2017-04-25] MEDS ORDERED: fentaNYL (PF) 50 MCG/ML 2 ML AMP ONE (10:13)
[2017-04-25] MEDS ORDERED: HYDROmorphone (PF) 1 MG/ML ONE (10:13)
[2017-04-25] MEDS ORDERED: MIDAZOLAM 2 MG/2 ML VIAL ONE (10:13)
[2017-04-25] MEDS ORDERED: GLYCOPYRROLATE 0.2 MG/ML 2 ML VIAL ONE (10:13)
[2017-04-25] MEDS ORDERED: ROCURONIUM BROMIDE 10 MG/ML 10 ML VIAL IV ONE (10:13)
[2017-04-25] MEDS ORDERED: BUPIVACAIN-EPI 0.5%-1:200,000 30 ML VIAL SQ ONE (10:49)
--- NOTE | 2017-04-25 11:11 | P.OP ---
Date of Procedure: 04/25/17 Preoperative Diagnosis: Incarcerated left inguinal hernia Postoperative Diagnosis: Incarcerated left inguinal hernia with incarcerated sigmoid colon Procedure(s) Performed: Laparoscopic robotic-assisted repair of incarcerated left inguinal hernia Implants: Anesthesia: ADARSH Surgeon: Curt Harper Estimated Blood Loss (ml): 5 Pathology: none sent Condition: stable Disposition: PACU Indications for Procedure: Operative Findings: Description of Procedure: The patient's placed on the operating table in the supine position. The patient received general anesthesia. The patient's abdomen was prepped and draped in usual sterile fashion. The skin was anesthetized 1% local Xylocaine at the incision sites. Using an 11 blade a skin incision was made at the umbilicus. The fascia was grasped with a [place] and then the peritoneal cavity was entered with the Veress needle. Position of the Veress needle was confirmed with a positive drop test. After adequate insufflation a 5 mm trocar was placed into the peritoneal cavity. The Laparoscope was placed the peritoneal cavity. And a robotic 8 mm trocar was placed in the right lateral position and then another 8 mm robotic trochars placed in the left lateral position. The original 5 mm trocar was exchanged for a 12 mm trocar. The patient was placed in reverse Trendelenburg and then the patient was docked to the robot. The sigmoid colon was reduced from the left we will hernia. Next the peritoneum over top of the hernia was incised and then using blunt and sharp dissection and electrocautery the hernia sac was dissected free from the floor of the inguinal canal. The hernia sac was completely reduced into the peritoneal cavity. And then using the Pro toddler caregiver mesh the hernia was repaired. The peritoneum was then sutured with 20V lock suture. The patient was then undocked the robot. The needle was withdrawn from the peritoneal cavity. The umbilical trocar site was closed with 0 Ethibond suture. The skin was closed interrupted 3-0 Monocryl suture. Dermabond dressing was applied. Patient was sent to recovery in stable condition.
[2017-04-25] MEDS: HYDROmorphone 1 MG/ML 1 ML SYRINGE IVP PRN ×3 (11:30→11:50)
[2017-04-25 11:40] VITALS: TEMP 96.8
[2017-04-25 11:56] LABS: Glucose,Whole Blood 225 mg/dL (75-99)
[2017-04-25] MEDS ORDERED: INSULIN LISPRO (humaLOG) 300 UNIT/3 ML VIAL SQ ONE (11:58)
[2017-04-25] MEDS ORDERED: HYDROcodone/APAP 7.5-325MG 1 EACH TAB PO ONE (13:02)
[2017-04-25 14:34] VITALS: BP 142/79
[2017-04-25] MEDS ORDERED: LACTATED RINGERS 1,000 ML IV ONE ×2 (15:00)
[2017-04-25 17:38] LABS: Glucose,Whole Blood 217 mg/dL (75-99)
[2017-04-26 06:01] VITALS: RESP 18
[2017-04-26 06:02] VITALS: PULSE 80
== END 2017-04-25 18:30 | disposition home or self-care (01) ==
LOC: OR 08:22
PROVIDERS: ATTEND Surgery
DX: K40.30 Unilateral inguinal hernia, with obstruction, without gangrene, not specified as recurrent (principal); I48.91 Unspecified atrial fibrillation; J44.9 Chronic obstructive pulmonary disease, unspecified; E11.9 Type 2 diabetes mellitus without complications; E78.5 Hyperlipidemia, unspecified; I10 Essential (primary) hypertension; I25.2 Old myocardial infarction; Z87.891 Personal history of nicotine dependence; Z79.84 Long term (current) use of oral hypoglycemic drugs; Z79.899 Other long term (current) drug therapy
CPT/HCPCS: 49650; C1781; J2250; J1644; J1100; J2710; J0690; J2405; J2001; J3010; J1170; J0330

== ENCOUNTER 2017-04-28 09:52 | Emergency (ER) | payer MEDICARE, OTHER ==
[2017-04-28] MEDS ORDERED: FAMOTIDINE 20 MG/2 ML VIAL IV STA (10:18)
[2017-04-28] MEDS ORDERED: methylPREDNISolone SOD SUCCI 125 MG/2 ML VIAL IV STA (10:18)
[2017-04-28] MEDS ORDERED: diphenhydrAMINE 50 MG/ML 1 ML VIAL IVP STA (10:18)
[2017-04-28] MEDS ORDERED: IPRATROPIUM-ALBUTEROL 3 ML NEB INHALATION STA (10:18)
[2017-04-28] MEDS ORDERED: SODIUM CHLORIDE 0.9% 500 ML IV ONE (10:19)
--- NOTE | 2017-04-28 10:21 | ED ---
General Adult HPI - General Chief complaint: Shortness of Breath Stated complaint: NATHALIE/post op surgery Time Seen by Provider: 04/28/17 10:00 Source: patient, RN notes reviewed Mode of arrival: ambulatory Limitations: no limitations - History of Present Illness Initial comments: This is a 66-year-old male presents emergency department because approximately 45 minutes prior to arrival he started getting a rash all over his body and becoming very erythematous and having a slight problem with breathing. Patient states this happened to him before he is not sure what he took before but today he took a couple Aleve just prior to this episode. Patient states his whole body is now red and itchy. Patient denies knowing exactly what he took before his last ALLERGIC reaction. Patient denies any shortness of breath now he denies any feeling that his "throat is closing. Patient denies any palpitations. Patient denies any chest pain. Patient denies any abdominal pain patient denies nausea vomiting diarrhea. Patient denies any lightheadedness dizziness or near-syncopal episode. - Related Data Home Medications Medication Instructions Recorded Confirmed glipiZIDE [Glucotrol] 5 mg PO BID 05/21/14 04/28/17 Simvastatin [Zocor] 80 mg PO HS 12/28/16 04/28/17 metFORMIN HCL 1,000 mg PO BID 02/20/17 04/28/17 Flecainide [Tambocor] 50 mg PO BID 04/20/17 04/28/17 Escitalopram [Lexapro] 10 mg PO DAILY 04/28/17 04/28/17 HYDROcodone/APAP 7.5-325MG [[place] 1 tab PO Q4H PRN 04/28/17 04/28/17 7.5] Previous Rx's Medication Instructions Recorded Apixaban [Eliquis] 5 mg PO BID #60 tab 01/05/17 Omeprazole 40 mg PO DAILY #60 capsule. 04/25/17 EPINEPHrine (Auto Inject) [Epipen] 0.3 mg IM ONCE PRN #2 syringe 04/28/17 predniSONE 40 mg PO DAILY #8 tab 04/28/17 Allergies Allergy/AdvReac Type Severity Reaction Status Date / Time naproxen [From Aleve] Allergy Itching, Verified 04/28/17 12:21 Redness, Chest Pain Review of Systems ROS Statement: Those systems with pertinent positive or pertinent negative responses have been documented in the HPI. ROS Other: All systems not noted in ROS Statement are negative. Past Medical History Past Medical History: Atrial Fibrillation, Cancer, COPD, Diabetes Mellitus, Hyperlipidemia, Hypertension, Myocardial Infarction ([place]) Additional Past Medical History / Comment(s): WAS TOLD HAS SLIGHT [place] YEARS AGO. HX Skin Cancer. Last Myocardial Infarction Date:: UNK History of Any Multi-Drug Resistant Organisms: None Reported Past Surgical History: Cardiac Ablation, Hernia Repair, Orthopedic Surgery Additional Past Surgical History / Comment(s): 01/26/17 HOWIE. LT SHOULDER,LT KNEE , RT WRIST SURGERY,ORIF LT LOWER LEG, BILAT CATARACTS REMOVED, Cardiac Ablation (02/01/17) Past Anesthesia/Blood Transfusion Reactions: No Reported Reaction Past Psychological History: Depression Smoking Status: Former smoker - Past Family History Mother Family Medical History: No Reported History Father Additional Family Medical History / Comment(s): IN AUTO ACC. General Exam - General Exam Comments Initial Comments: GENERAL: Patient is well-developed and well-nourished. Patient is nontoxic and well- hydrated and is in mild distress. ENT: Neck is soft and supple. No significant lymphadenopathy is noted. Oropharynx is clear. Moist mucous membranes. Neck has full range of motion without eliciting any pain. EYES: The sclera were anicteric and conjunctiva were pink and moist. Extraocular movements were intact and pupils were equal round and reactive to light. Eyelids were unremarkable. PULMONARY: Patient has slight expiratory wheeze CARDIOVASCULAR: There is a regular rate and rhythm without any murmurs gallops or rubs. ABDOMEN: Soft and nontender with normal bowel sounds. No palpable organomegaly was noted. There is no palpable pulsatile mass. SKIN: Patient is erythematous his face chest back arms and legs. Patient does have some hives on his chest.. NEUROLOGIC: Patient is alert and oriented x3. Cranial nerves II through XII are grossly intact. Motor and sensory are also intact. Normal speech, volume and content. Symmetrical smile. MUSCULOSKELETAL: Normal extremities with adequate strength and full range of motion. No lower extremity swelling or edema. No calf tenderness. LYMPHATICS: No significant lymphadenopathy is noted PSYCHIATRIC: Normal psychiatric evaluation. Limitations: no limitations Course Vital Signs 04/28/17 04/28/17 04/28/17 10:02 10:34 10:44 Temperature 97.4 F L Pulse Rate 128 H 124 H 124 H Respiratory 20 Rate Blood Pressure 142/63 O2 Sat by Pulse 91 L Oximetry 04/28/17 04/28/17 12:22 12:25 Temperature Pulse Rate 99 Respiratory 18 Rate Blood Pressure 190/73 141/74 O2 Sat by Pulse 96 Oximetry Medical Decision Making - Medical Decision Making EKG shows sinus tachycardia at 129 bpm OK interval is 140 QRS is 94 QT interval 300 QTC is 439 per patient's EKG shows no ST segment elevation or depression or T-wave abdomen is noted. Patient received Solu-Medrol Benadryl and an albuterol treatment along with some Pepcid and he felt considerably better he was in the emergency department over 2 hours and had no more symptoms. Critical Care Time Critical Care Time: Yes Total Critical Care Time: 35 Disposition Clinical Impression: Anaphylaxis Disposition: HOME SELF-CARE Condition: Good Instructions: Anaphylaxis (ED) Additional Instructions: Patient should take Benadryl when necessary for hives rash or difficulty breathing. Patient she is EpiPen is prescribed. Patient should use steroids as prescribed. Patient should not take anymore NSAIDs. Prescriptions: EPINEPHrine (Auto Inject) [Epipen] 0.3 mg IM ONCE PRN #2 syringe PRN Reason: Difficulty breathing predniSONE 40 mg PO DAILY #8 tab Referrals: Hilton Salazar MD [Primary Care Provider] - 1-2 days Time of Disposition: 12:42
[2017-04-28 12:23] VITALS: PULSE 99; RESP 18
[2017-04-28 12:26] VITALS: BP 141/74
[2017-04-28 12:53] VITALS: TEMP 97.9
== END 2017-04-28 12:45 | disposition home or self-care (01) ==
LOC: EC 09:52
DX: T78.2XXA Anaphylactic shock, unspecified, initial encounter (principal); R00.0 Tachycardia, unspecified; E11.9 Type 2 diabetes mellitus without complications; I10 Essential (primary) hypertension; I25.2 Old myocardial infarction; E78.5 Hyperlipidemia, unspecified; Z88.6 Allergy status to analgesic agent; Z79.84 Long term (current) use of oral hypoglycemic drugs; Z79.899 Other long term (current) drug therapy; Z87.891 Personal history of nicotine dependence
CPT/HCPCS: 99285; 96374; 96375 ×2; 94640; 93005; J1200; J2930

== ENCOUNTER 2017-07-13 06:27 | Day surgery (SDC) | payer MEDICARE, OTHER ==
[2017-07-12 08:53] VITALS: BMI 31.4
[~2017-07-13 06:27] MED LIST changes: +HYDROmorphone 1 MG/ML 1 ML SYRINGE IVP PRN; +LACTATED RINGERS 1,000 ML IV SCH; -LIDOCAINE 1% 20 ML VIAL (10MG/ML) FOR IV START INTRADERMA PRN; -SCOPOLAMINE 1.5MG/72HR PATCH TRANSDERM ONE
[2017-07-13 07:28] LABS: Glucose,Whole Blood 114 mg/dL (75-99)
[2017-07-13] MEDS ORDERED: LIDOCAINE 1% 20 ML VIAL (10MG/ML) FOR IV START INTRADERMA ONE (07:33)
--- NOTE | 2017-07-13 08:05 | P.GSHP ---
History of Present Illness H&P Date: 07/13/17 Chief Complaint: Recurrent left inguinal hernia This is a 66-year-old male who underwent recent laparoscopic inguinal hernia. Was doing some heavy lifting and straining. He felt a pop in his left groin. Patient was seen Kathi found have a reducible recurrent left we'll hernia. He presents today for repair. Past Medical History Past Medical History: Atrial Fibrillation, Cancer, COPD, Diabetes Mellitus, Hyperlipidemia, Hypertension, [place]ocardial Infarction ([place]) Additional Past Medical History / Comment(s): WAS TOLD HAS SLIGHT IN YEARS AGO. HX Skin Cancer. Last Myocardial Infarction Date:: UNK History of Any Multi-Drug Resistant Organisms: None Reported Past Surgical History: Cardiac Ablation, Hernia Repair, Orthopedic Surgery Additional Past Surgical History / Comment(s): 01/26/17 HOWIE. LT SHOULDER,LT KNEE , RT WRIST SURGERY,ORIF LT LOWER LEG, BILAT CATARACTS REMOVED, Cardiac Ablation (02/01/17) Past Anesthesia/Blood Transfusion Reactions: No Reported Reaction Smoking Status: Former smoker - Past Family History Mother Family Medical History: No Reported History Father Additional Family Medical History / Comment(s): IN AUTO ACC. Medications and Allergies Home Medications Medication Instructions Recorded Confirmed Type glipiZIDE [Glucotrol] 5 mg PO BID 05/21/14 07/13/17 History Simvastatin [Zocor] 80 mg PO HS 12/28/16 07/13/17 History Apixaban [Eliquis] 5 mg PO BID #60 tab 01/05/17 07/13/17 Rx metFORMIN HCL 1,000 mg PO BID 02/20/17 07/13/17 History Flecainide [Tambocor] 50 mg PO BID 04/20/17 07/13/17 History Escitalopram [Lexapro] 10 mg PO DAILY 04/28/17 07/13/17 History HYDROcodone/APAP 7.5-325MG [[place] 1 tab PO Q4H PRN 04/28/17 07/13/17 History 7.5] EPINEPHrine (Auto Inject) [Epipen] 0.3 mg IM ONCE PRN 07/12/17 07/13/17 History Allergies Allergy/AdvReac Type Severity Reaction Status Date / Time ibuprofen Allergy Anaphylaxis Verified 07/13/17 07:18 naproxen [From Aleve] Allergy Anaphylaxis Verified 07/12/17 08:46 Surgical - Exam Vital Signs Temp Pulse Resp BP Pulse Ox 97.0 F L 87 18 159/80 96 07/13/17 07:15 07/13/17 07:15 07/13/17 07:15 07/13/17 07:15 07/13/17 07:15 - General well developed, no distress - Eyes PERRL - ENT normal pinna - Neck no masses - Respiratory normal expansion - Cardiovascular Rhythm: regular - Abdomen Abdomen: soft, non tender Hernia: inguinal (Recurrent reducible left renal hernia) Results - Labs Abnormal Lab Results - Last 24 Hours (Table) 07/13/17 Range/Units 07:09 POC Glucose (mg/dL) 114 H (75-99) mg/dL Assessment and Plan Plan: Recurrent left renal hernia. We'll perform open repair.
[2017-07-13] MEDS ORDERED: ePHEDrine SULFATE/0.9% NACL/PF 50 MG/5 ML SYRINGE IV ONE (08:09)
[2017-07-13] MEDS ORDERED: fentaNYL (PF) 50 MCG/ML 2 ML AMP ONE (08:09)
[2017-07-13] MEDS ORDERED: LIDOCAINE 1% INJ 10MG/ML (20 ML MDV) ONE (08:09)
[2017-07-13] MEDS ORDERED: NEOSTIGMINE 1 MG/ML 10 ML VIAL ONE (08:09)
[2017-07-13] MEDS ORDERED: MIDAZOLAM 2 MG/2 ML VIAL ONE (08:09)
[2017-07-13] MEDS ORDERED: SUCCINYLCHOLINE CHLORIDE 100 MG/5 ML SYR IV ONE (08:09)
[2017-07-13] MEDS ORDERED: ROCURONIUM BROMIDE 10 MG/ML 10 ML VIAL IV ONE (08:09)
[2017-07-13] MEDS ORDERED: GLYCOPYRROLATE 0.2 MG/ML 2 ML VIAL ONE (08:09)
[2017-07-13] MEDS ORDERED: BUPIVACAINE (PF) 0.25% 30 ML VIAL SQ ONE (08:36)
--- NOTE | 2017-07-13 09:19 | P.OP ---
Date of Procedure: 07/13/17 Preoperative Diagnosis: Recurrent left internal hernia Postoperative Diagnosis: Recurrent left inguinal hernia Procedure(s) Performed: Repair of recurrent left inguinal hernia Anesthesia: ADARSH Surgeon: Curt Harper Estimated Blood Loss (ml): 5 Pathology: none sent Condition: stable Disposition: PACU Description of Procedure: DESCRIPTION OF PROCEDURE: The patient was placed in the supine position after receiving adequate anesthesia. Patients groin was prepped and draped in the usual sterile fashion. A standard hernia incision was made and the subcutaneous tissues were divided with electrocautery. The fascia of the external oblique was exposed. A sandy the fascia was made with #15 blade. The fascia was then opened with pair of Metzenbaum scissors. A Weitlaner retractor was placed in the wound and the cord structures were grasped and dissected free from the inguinal canal. A rubber Buck drain was placed around the cord structures. The hernial sac was seen on the anterior-medial portion of the cord and this was dissected free from the cord. The hernia sac was then invaginated to the peritoneal cavity. Using blunt finger dissection, the preperitoneal space was dissected and then the Prolene hernial mesh plug was placed into the prepared space. The inferior leaf was expanded. The superior leaf was secured to the pubic tubercle using 2-0 Prolene suture. The lateral portion of the superior leaf was incised and cords tied and secured to the transversalis fascia using 2-0 Prolene suture. Fascia of the external oblique was then closed using #0 Vicryl suture. The Buck drain was removed. The Scarpas fascia was then closed with 3-0 Vicryl suture and skin was closed with ventura. The patient tolerated the procedure well.
[2017-07-13 09:27] VITALS: TEMP 98
[2017-07-13 09:35] LABS: Glucose,Whole Blood 155 mg/dL (75-99)
[2017-07-13] MEDS ORDERED: LACTATED RINGERS 1,000 ML IV ONE (09:42)
[2017-07-13 09:51] VITALS: RESP 18
[2017-07-13 10:33] VITALS: BP 148/76; PULSE 82
[2017-07-13] MEDS ORDERED: HYDROcodone/APAP 7.5-325MG 1 EACH TAB PO ONE (10:35)
== END 2017-07-13 11:43 | disposition home or self-care (01) ==
LOC: OR 06:27
PROVIDERS: ATTEND Surgery
DX: K40.91 Unilateral inguinal hernia, without obstruction or gangrene, recurrent (principal); I48.91 Unspecified atrial fibrillation; Z79.01 Long term (current) use of anticoagulants; J44.9 Chronic obstructive pulmonary disease, unspecified; E11.9 Type 2 diabetes mellitus without complications; Z79.84 Long term (current) use of oral hypoglycemic drugs; E78.5 Hyperlipidemia, unspecified; I10 Essential (primary) hypertension; I25.2 Old myocardial infarction; Z87.891 Personal history of nicotine dependence; Z85.828 Personal history of other malignant neoplasm of skin; Z79.899 Other long term (current) drug therapy; Z88.6 Allergy status to analgesic agent
CPT/HCPCS: 49520; C1781; J2250; J1644; J1100; J2710; J0690; J2001; J3010; J0330

== ENCOUNTER 2017-12-27 21:02 | Emergency (ER) | payer MEDICARE ==
[2017-12-27 21:08] VITALS: PULSE 81; RESP 20; TEMP 97.7
--- NOTE | 2017-12-27 21:37 | ED ---
General Adult HPI - General Chief complaint: Back Pain/Injury Stated complaint: Back pain Time Seen by Provider: 12/27/17 21:10 Source: patient Mode of arrival: ambulatory Limitations: no limitations - History of Present Illness Initial comments: 67-year-old male presents to the ER for left lower back pain 3 weeks. He states he was shoveling snow 3 weeks ago when he first noticed the pain. Patient denies falling or any other trauma. He says since then the pain has not gotten better and he believes it is getting worse. He has tried Tylenol once today with minimal relief. He states he is ALLERGIC to ibuprofen and cannot take any NSAIDs. Patient states he has tolerated muscle relaxers in the past. Patient denies any changes in bladder or bowel function, shooting pains, pain in the legs. Patient states he has full sensation in feet bilaterally. Patient states the pain makes it difficult to change positions such as from sitting to standing. However once he is sitting or standing he feels better. Patient also states that applying pressure to the affected area helps to alleviate the pain. Denies any pain along the spine and no tenderness to palpation over the lumbar area of the back. - Related Data Home Medications Medication Instructions Recorded Confirmed glipiZIDE [Glucotrol] 5 mg PO BID 05/21/14 07/13/17 Simvastatin [Zocor] 80 mg PO HS 12/28/16 07/13/17 metFORMIN HCL 1,000 mg PO BID 02/20/17 07/13/17 Flecainide [Tambocor] 50 mg PO BID 04/20/17 07/13/17 Escitalopram [Lexapro] 10 mg PO DAILY 04/28/17 07/13/17 HYDROcodone/APAP 7.5-325MG [[place] 1 tab PO Q4H PRN 04/28/17 07/13/17 7.5] EPINEPHrine (Auto Inject) [Epipen] 0.3 mg IM ONCE PRN 07/12/17 07/13/17 Previous Rx's Medication Instructions Recorded Apixaban [Eliquis] 5 mg PO BID #60 tab 01/05/17 Docusate [Colace] 100 mg PO BID #20 capsule 07/13/17 HYDROcodone/APAP 7.5-325MG [[place] 1 each PO Q4H PRN #60 tab 07/13/17 7.5] Cyclobenzaprine [Flexeril] 10 mg PO TID #20 tab 12/27/17 Allergies Allergy/AdvReac Type Severity Reaction Status Date / Time ibuprofen Allergy Anaphylaxis Verified 12/27/17 21:08 naproxen [From Aleve] Allergy Anaphylaxis Verified 12/27/17 21:08 Review of Systems ROS Statement: Those systems with pertinent positive or pertinent negative responses have been documented in the HPI. ROS Other: All systems not noted in ROS Statement are negative. Past Medical History Past Medical History: Atrial Fibrillation, Cancer, COPD, Diabetes Mellitus, Hyperlipidemia, Hypertension, Myocardial Infarction ([place]) Additional Past Medical History / Comment(s): WAS TOLD HAS SLIGHT [place] YEARS AGO. HX Skin Cancer. Last Myocardial Infarction Date:: UNK History of Any Multi-Drug Resistant Organisms: None Reported Past Surgical History: Cardiac Ablation, Hernia Repair, Orthopedic Surgery Additional Past Surgical History / Comment(s): 01/26/17 HOWIE. LT SHOULDER,LT KNEE , RT WRIST SURGERY,ORIF LT LOWER LEG, BILAT CATARACTS REMOVED, Cardiac Ablation (02/01/17) Past Anesthesia/Blood Transfusion Reactions: No Reported Reaction Past Psychological History: Depression Smoking Status: Former smoker Past Alcohol Use History: Occasional Past Drug Use History: None Reported - Past Family History Mother Family Medical History: No Reported History Father Additional Family Medical History / Comment(s): IN AUTO ACC. General Exam Limitations: no limitations General appearance: alert, in no apparent distress Head exam: Present: atraumatic, normocephalic, normal inspection Respiratory exam: Present: normal lung sounds bilaterally. Absent: respiratory distress, wheezes, rales, rhonchi, stridor Cardiovascular Exam: Present: regular rate, normal rhythm, normal heart sounds. Absent: systolic murmur, diastolic murmur, rubs, gallop, clicks GI/Abdominal exam: Present: soft, normal bowel sounds. Absent: distended, tenderness, guarding, rebound, rigid Extremities exam: Present: normal capillary refill. Absent: full ROM (Limited flexion and extension of left leg.), tenderness, pedal edema, joint swelling, calf tenderness Back exam: Present: other (Patient has pain in the left lower back when flexing and extending the back. Pain also noted with twisting and lateral bending. Negative CVA tenderness. Full strength noted in legs bilaterally.). Absent: full ROM, tenderness, CVA tenderness (L), paraspinal tenderness, vertebral tenderness Neurological exam: Present: alert, oriented X3 Psychiatric exam: Present: normal affect, normal mood Course Vital Signs 12/27/17 12/27/17 21:05 21:50 Temperature 97.7 F Pulse Rate 81 Respiratory 20 Rate Blood Pressure 181/81 181/86 O2 Sat by Pulse 98 Oximetry Medical Decision Making - Medical Decision Making 67-year-old male presents to the emergency department for left lower back pain 3 weeks which she first noticed while shoveling. Denies any trauma or falls. Patient is unable to take ibuprofen. Patient has no tenderness along the spine nor paravertebral areas. No changes in bladder or bowel function. Pain is worse with movement including flexing and extending and twisting. Patient agrees to try Tylenol and a muscle relaxer along with using heat as needed. Rechecked blood pressure at end of visit. Spoke with patient about systolic blood pressure being elevated to 180. Patient is currently asymptomatic and has not been on anything for blood pressure before. We suspect there is a pain component involved, but he is recommended to follow up with his primary care physician within 2 days for reevaluation. Discussed with Dr. Evans. Disposition Clinical Impression: Acute low back pain Disposition: HOME SELF-CARE Condition: Good Instructions: Acute Low Back Pain (ED) Additional Instructions: Use Flexeril as directed. Take tylenol for pain relief as needed. Use heat every few hours if it helps to alleviate the pain. If symptoms do not improve follow up with primary care doctor or return to emergency department. If symptoms worsen dramatically, return to ER. Prescriptions: Cyclobenzaprine [Flexeril] 10 mg PO TID #20 tab Referrals: Hilton Salazar MD [Primary Care Provider] - 1-2 days Time of Disposition: 21:57
[2017-12-27 21:51] VITALS: BP 181/86
== END 2017-12-27 22:06 | disposition home or self-care (01) ==
LOC: EC 21:02
DX: M54.5 Low back pain (principal); I48.91 Unspecified atrial fibrillation; E11.9 Type 2 diabetes mellitus without complications; E78.5 Hyperlipidemia, unspecified; I10 Essential (primary) hypertension; Z87.891 Personal history of nicotine dependence; Z85.828 Personal history of other malignant neoplasm of skin; Z79.84 Long term (current) use of oral hypoglycemic drugs; Z79.899 Other long term (current) drug therapy; Z88.6 Allergy status to analgesic agent
CPT/HCPCS: 99283

== ENCOUNTER → 2018-01-02 | Outpatient (CLI) | payer MEDICARE ==
[2018-01-02 09:47] LABS: Basophils # (A) 0.1 k/uL (0-0.2); Basophils % (A) 1 %; Eosinophils # (A) 0.1 k/uL (0-0.7); Eosinophils % (A) 2 %; HCT 48.9 % (39.0-53.0); HGB 15.5 gm/dL (13.0-17.5); Hypochromasia Slight; Lymphocytes # (A) 1.7 k/uL (1.0-4.8); Lymphocytes % (A) 23 %; MCH 26.4 pg (25.0-35.0); MCHC 31.7 g/dL (31.0-37.0); MCV 83.1 fL (80.0-100.0); Mean Platelet Volume 6.6; Monocytes # (A) 0.4 k/uL (0-1.0); Monocytes % (A) 5 %; Neutrophils # (A) 4.9 k/uL (1.3-7.7); Neutrophils % (A) 66 %; Platelet Count 275 k/uL (150-450); RBC 5.88 m/uL (4.30-5.90); RDW 13.5 % (11.5-15.5); WBC 7.5 k/uL (3.8-10.6)
[2018-01-02 11:00] LABS: ALT 43 U/L (21-72); AST 30 U/L (17-59); Alkaline Phosphatase 197 U/L (38-126); Anion Gap 12 mmol/L; Blood Urea Nitrogen 19 mg/dL (9-20); Calcium 10.5 mg/dL (8.4-10.2); Carbon Dioxide 28 mmol/L (22-30); Chloride 97 mmol/L (98-107); Glucose 224 mg/dL (74-99); Potassium 5.3 mmol/L (3.5-5.1); Sodium 137 mmol/L (137-145); Total Bilirubin 0.5 mg/dL (0.2-1.3); Total Protein 6.6 g/dL (6.3-8.2)
[2018-01-02 11:15] LABS: T4, Free (Free Thyroxine) 1.29 ng/dL (0.78-2.19)
== END | disposition home or self-care (01) ==
LOC: LABWHC1 09:12
PROVIDERS: ATTEND Family Medicine
DX: E11.9 Type 2 diabetes mellitus without complications (principal); I10 Essential (primary) hypertension; E78.00 Pure hypercholesterolemia, unspecified
CPT/HCPCS: 36415; 80053; 84439; 84443; 85025

== ENCOUNTER → 2018-02-04 | Outpatient (CLI) | payer MEDICARE ==
--- NOTE | 2018-02-04 15:51 | CT ---
EXAMINATION TYPE: CT chest w con DATE OF EXAM: 02/04/2018 COMPARISON: 02/20/2017 HISTORY: cough, congestion and abnormal CXR CT DLP: 739 mGycm Automated exposure control for dose reduction was used. CONTRAST: CT scan of the chest is performed with IV Contrast, patient injected with 97 mL of Isovue 300. FINDINGS: LUNGS: Mild to moderate underlying emphysematous change is present. There is 8 x 7 mm nodule posterio r right lower lobe on axial image 44. Some dependent atelectatic change is present in both lower lobe s. No pleural effusion or pneumothorax is seen bilaterally. Tracheobronchial tree is patent. MEDIASTINUM: There are no greater than 1 cm hilar or mediastinal lymph nodes. No pericardial effusi on is seen. Aorta of normal caliber. Minimal atherosclerotic changes. Esophageal wall again appears to be thickened correlate clinically. OTHER: There is low dense nodular thickening to both adrenal glands which is stable. Hypertrophic an d degenerative change spine noted. IMPRESSION: 1. Stable 8 x 7 mm right lower lobe pulmonary nodule. Recommend PET scan. 2. Stable thickening of the distal wall the esophageal small hiatal hernia correlate for esophagitis. 3. Diffuse changes of COPD 4. Stable nodular thickening of the adrenal glands which are indeterminate.
== END | disposition home or self-care (01) ==
LOC: RADCTMAIN 13:54
PROVIDERS: ATTEND Family Medicine
DX: K44.9 Diaphragmatic hernia without obstruction or gangrene (principal); R91.1 Solitary pulmonary nodule; J44.9 Chronic obstructive pulmonary disease, unspecified
CPT/HCPCS: 82565; 84520; 71260; 36415; Q9967

== ENCOUNTER 2018-03-22 14:23 | Emergency (ER) | payer MEDICARE ==
[2018-03-22 15:00] VITALS: RESP 18
--- NOTE | 2018-03-22 15:39 | ED ---
Fall HPI - General Chief Complaint: Fall Stated Complaint: rt arm injury (fall 03/21/18) Time Seen by Provider: 03/22/18 15:14 Source: patient Mode of arrival: ambulatory - History of Present Illness Initial Comments: Patient is a 67-year-old male presenting for injuries sustained from a fall. He states that yesterday, around 11 AM, he was on a 3-4 foot ladder and fell backwards onto his right side. He denies any head injury as well as neck pain but states that he does take apixaban and his daughter made him come in for evaluation. He also denies any loss of consciousness as well as head trauma or neck pain or back pain. He states that his right elbow, right forearm, right wrist and right knee have the majority of the symptoms which include pain. - Related Data Home Medications Medication Instructions Recorded Confirmed glipiZIDE [Glucotrol] 5 mg PO BID 05/21/14 03/22/18 Simvastatin [Zocor] 80 mg PO HS 12/28/16 03/22/18 metFORMIN HCL 1,000 mg PO BID 02/20/17 03/22/18 Flecainide Acetate [Tambocor] 100 mg PO BID 03/22/18 03/22/18 Lisinopril [Prinivil] 10 mg PO DAILY 03/22/18 03/22/18 Previous Rx's Medication Instructions Recorded Apixaban [Eliquis] 5 mg PO BID #60 tab 01/05/17 Allergies Allergy/AdvReac Type Severity Reaction Status Date / Time ibuprofen Allergy Anaphylaxis Verified 03/22/18 16:36 naproxen [From Aleve] Allergy Anaphylaxis Verified 03/22/18 16:36 Review of Systems ROS Statement: Those systems with pertinent positive or pertinent negative responses have been documented in the HPI. Constitutional: Negative for chills, fatigue and fever. HENT: Negative for congestion. Respiratory: Negative for chest tightness, shortness of breath and wheezing. Negative for cough Cardiovascular: Negative for chest pain and palpitations. Gastrointestinal: Negative for abdominal pain. Negative for abdominal distention , diarrhea, nausea and vomiting. Genitourinary: Negative for dysuria. Musculoskeletal: Negative for back pain, neck pain and neck stiffness. Positive for right elbow, right forearm, right wrist, right knee pain Skin: Positive for bruising Neurological: Negative for dizziness, speech difficulty, weakness and light- headedness. Psychiatric/Behavioral: Negative for agitation and confusion. The patient is not nervous/anxious. ROS Other: All systems not noted in ROS Statement are negative. Past Medical History Past Medical History: Atrial Fibrillation, Cancer, COPD, Diabetes Mellitus, Hyperlipidemia, Hypertension, Myocardial Infarction ([place]) Additional Past Medical History / Comment(s): WAS TOLD HAS SLIGHT [place] YEARS AGO. HX Skin Cancer. Last Myocardial Infarction Date:: UNK History of Any Multi-Drug Resistant Organisms: None Reported Past Surgical History: Cardiac Ablation, Hernia Repair, Orthopedic Surgery Additional Past Surgical History / Comment(s): 01/26/17 HOWIE. LT SHOULDER,LT KNEE , RT WRIST SURGERY,ORIF LT LOWER LEG, BILAT CATARACTS REMOVED, Cardiac Ablation (02/01/17) Past Anesthesia/Blood Transfusion Reactions: No Reported Reaction Past Psychological History: Depression Smoking Status: Former smoker Past Alcohol Use History: Occasional Past Drug Use History: None Reported - Past Family History Mother Family Medical History: No Reported History Father Additional Family Medical History / Comment(s): IN AUTO ACC. General Exam - General Exam Comments Initial Comments: Constitutional: Pt is oriented to person, place, and time. Pt appears well- developed and well-nourished. No distress. HENT: Head: Normocephalic and atraumatic. Eyes: EOM are normal. Neck: Normal range of motion. Neck supple. Cardiovascular: Normal rate, regular rhythm, S1 normal, S2 normal and normal heart sounds. Exam reveals no gallop and no friction rub. No murmur heard. Pulmonary/Chest: Effort normal and breath sounds normal. No tachypnea and no bradypnea. No respiratory distress. No wheezes or rales noted. Abdominal: Soft. Bowel sounds are normal. Pt exhibits no shifting dullness, no distension, no pulsatile liver, no fluid wave, no abdominal bruit and no ascites. There is no tenderness. There is no rigidity, no rebound, no guarding, no tenderness at McBurney's point and negative Galvez's sign. Musculoskeletal: Normal range of motion. Ecchymosis and hematoma measuring approximately 3 cm on the right olecranon process. There is no tenderness to olecranon and that there is scattered ecchymosis on the right forearm. There is prominence of the right medial wrist around the ulnar condyle but she states this is chronic. Normal range of motion in the wrist. Knee shows no ecchymosis or tenderness to palpation. There is no tenderness to C-spine, T- spine, L-spine. There is full range of motion in the spine of all areas. Neurological: Pt is alert and oriented to person, place, and time. No cranial nerve deficit. Skin: Skin is warm and dry. No rash noted. Pt is not diaphoretic. No erythema. No pallor. Psychiatric: Pt has a normal mood and affect. Pt behavior is normal. Thought content normal. Limitations: no limitations Course Vital Signs 03/22/18 14:55 Temperature 98.0 F Pulse Rate 97 Respiratory 18 Rate Blood Pressure 120/85 O2 Sat by Pulse 98 Oximetry Medical Decision Making - Medical Decision Making X-ray showed no evidence of acute pathology although it did show old fractures of the radius and ulna on the right side which the patient is aware of. CT of the head was also negative for acute pathology. Because of the time frame of being approximately 36 hours, it is felt that the patient could be safely discharged home. At the time of disposition, the patient had no significant complaints and was comfortable going home.Explained all labs and diagnostic test results and that we will discharge the patient home and patient is to follow up with PCP in 1-2 days and return to the ED if symptoms worsen. Pt is agreeable to plan. Disposition Clinical Impression: Fall Disposition: HOME SELF-CARE Condition: Good Instructions: Fall Prevention for Older Adults (ED) Is patient prescribed a controlled substance at d/c from ED?: No Referrals: Hilton Salazar MD [Primary Care Provider] - 1-2 days Time of Disposition: 16:56
--- NOTE | 2018-03-22 16:08 | CT ---
EXAMINATION TYPE: CT brain wo con DATE OF EXAM: 03/22/2018 COMPARISON: NONE HISTORY: Patient fell today. Patient denies head complaints at time of exam. CT DLP: 1103 mGycm Automated exposure control for dose reduction was used. Helical imaging through the brain. FINDINGS: There is no hemorrhage or hydrocephalus. No mass effect. Calvarium is intact. Paranasal sinuses and m astoid air cells are well-aerated, orbits are symmetric in the visualized portions. There is cortical atrophy present. White matter low-attenuation suggesting chronic small vessel ischemia. IMPRESSION: NO ACUTE BRAIN ABNORMALITY.
--- NOTE | 2018-03-22 16:11 | XR ---
Right elbow HISTORY: Trauma and pain 3 views of the right elbow Bone mineralization, joint spaces and alignment are maintained. There is no evident joint effusion. S oft tissue swelling is noted. Small ossific density. Proximal aspect of the ulna is thought to be wel l-corticated, small chip fracture cannot entirely excluded. IMPRESSION: No acute dislocation, follow-up as indicated. Additional findings above.
--- NOTE | 2018-03-22 16:12 | XR ---
Right forearm HISTORY: Trauma and pain 2 views of the right forearm correlated to prior right wrist dated 02/24/2013 Distal radius shows distortion as on prior exam. Distal ulna also shows distortion which is chronic. Alignment is maintained. No evident joint effusion. IMPRESSION: No acute fracture or dislocation is evident. Chronic abnormalities of the distal radius a nd ulna.
--- NOTE | 2018-03-22 16:13 | XR ---
Right wrist HISTORY: Trauma and pain 4 views of the right wrist correlated to prior wrist 02/24/2013 Distortion of the distal radius and ulna is a stable finding. Geode formation present within the angi te bone is again seen. There is positive ulnar variance. Alignment is stable. IMPRESSION: No acute fracture or dislocation is evident. Follow-up as indicated. Additional findings above.
--- NOTE | 2018-03-22 16:33 | XR ---
EXAMINATION TYPE: XR knee complete RT DATE OF EXAM: 03/22/2018 CLINICAL HISTORY: Right knee pain after fall TECHNIQUE: Three views of the right knee are obtained. COMPARISON: None. FINDINGS: There is no acute fracture/dislocation evident in right knee. There is very mild medial co mpartment joint space narrowing and very small osteophytes of the medial and lateral compartments ind icative of minimal compartment arthropathy. The overlying soft tissue appears unremarkable. IMPRESSION: There is no acute fracture or dislocation in the right knee.
[2018-03-22 17:04] VITALS: BP 120/70; PULSE 85; TEMP 98
== END 2018-03-22 17:03 | disposition home or self-care (01) ==
LOC: EC 14:23
DX: S50.11XA Contusion of right forearm, initial encounter (principal); M25.561 Pain in right knee; E11.9 Type 2 diabetes mellitus without complications; E78.5 Hyperlipidemia, unspecified; I10 Essential (primary) hypertension; I25.2 Old myocardial infarction; I48.91 Unspecified atrial fibrillation; Z85.828 Personal history of other malignant neoplasm of skin; Z98.890 Other specified postprocedural states; Z87.891 Personal history of nicotine dependence; Z79.84 Long term (current) use of oral hypoglycemic drugs; Z79.899 Other long term (current) drug therapy; Z88.6 Allergy status to analgesic agent; W10.9XXA Fall (on) (from) unspecified stairs and steps, initial encounter; Y92.89 Other specified places as the place of occurrence of the external cause
CPT/HCPCS: 70450; 99284

== ENCOUNTER 2018-09-10 08:37 | Inpatient (IN) | payer OTHER, MEDICARE ==
[2018-09-10] MEDS ORDERED: SODIUM CHLORIDE 0.9% 1,000 ML IV STA (09:01)
--- NOTE | 2018-09-10 09:09 | ED ---
General Adult HPI - General Chief complaint: Chest Pain Stated complaint: chest pain Time Seen by Provider: 09/10/18 08:55 Source: patient, RN notes reviewed Mode of arrival: wheelchair Limitations: no limitations - History of Present Illness Initial comments: Patient 67-year-old male smoker past medical history for A. fib, presented to the emergency room today with a chief complaint of chest pain that started this morning. Patient has not that is had abdominal pain for the past 10 days that was going on the lower mid abdomen. He does admit that today when he was waking up and noticed that the pain was up higher top of the abdomen and lower chest. He describes it as sharp type pain. He states the shortness has gone away but he still feeling discomfort. Patient does admit that is on a blood thinner. Patient states not had similar symptoms in the past. Patient denies any recent fever, chills, shortness of breath, chest pain, back pain, numbness or tingling, dysuria or hematuria, diarrhea, headaches or visual changes, or any other complaints. - Related Data Home Medications Medication Instructions Recorded Confirmed glipiZIDE [Glucotrol] 5 mg PO BID 05/21/14 09/10/18 Simvastatin [Zocor] 80 mg PO HS 12/28/16 09/10/18 metFORMIN HCL 1,000 mg PO BID 02/20/17 09/10/18 Flecainide Acetate [Tambocor] 100 mg PO BID 03/22/18 09/10/18 Lisinopril [Prinivil] 10 mg PO DAILY 03/22/18 09/10/18 Previous Rx's Medication Instructions Recorded Apixaban [Eliquis] 5 mg PO BID #60 tab 01/05/17 Allergies Allergy/AdvReac Type Severity Reaction Status Date / Time ibuprofen Allergy Anaphylaxis Verified 09/10/18 08:57 naproxen [From Aleve] Allergy Anaphylaxis Verified 09/10/18 08:57 Review of Systems ROS Statement: Those systems with pertinent positive or pertinent negative responses have been documented in the HPI. ROS Other: All systems not noted in ROS Statement are negative. Past Medical History Past Medical History: Atrial Fibrillation, Cancer, COPD, Diabetes Mellitus, Hyperlipidemia, Hypertension, Myocardial Infarction ([place]) Additional Past Medical History / Comment(s): WAS TOLD HAS SLIGHT TN YEARS AGO. HX Skin Cancer. Last Myocardial Infarction Date:: UNK History of Any Multi-Drug Resistant Organisms: None Reported Past Surgical History: Cardiac Ablation, Hernia Repair, Orthopedic Surgery Additional Past Surgical History / Comment(s): 01/26/17 HOWIE. LT SHOULDER,LT KNEE , RT WRIST SURGERY,ORIF LT LOWER LEG, BILAT CATARACTS REMOVED, Cardiac Ablation (02/01/17) Past Anesthesia/Blood Transfusion Reactions: No Reported Reaction Past Psychological History: Depression Smoking Status: Former smoker Past Alcohol Use History: Occasional Past Drug Use History: None Reported - Past Family History Mother Family Medical History: No Reported History Father Additional Family Medical History / Comment(s): IN AUTO ACC. General Exam - General Exam Comments Initial Comments: General: The patient is awake and alert, in no distress, and does not appear acutely ill. Eye: Pupils are equal, round and reactive to light. Extra-ocular movements are intact. No nystagmus. There is normal conjunctiva bilaterally. No signs of icterus. Ears, nose, mouth and throat: There are moist mucous membranes and no oral lesions. Neck: The neck is supple, there is no tenderness or JVD. Cardiovascular: Tachycardic. No murmur, rub or gallop is appreciated. Respiratory: Lungs are clear to auscultation, respirations are non-labored, breath sounds are equal. No wheezes, stridor, rales, or rhonchi. Gastrointestinal: Abdomen soft on palpation. No specific tenderness. No rebound, guarding or CVA tenderness. Musculoskeletal: Normal ROM, no tenderness. Sensation intact. Strength 5/5. Pulses equal bilaterally 2+. Neurological: A&O x 3. CN II-XII intact, There are no obvious motor or sensory deficits. Coordination appears grossly intact. Speech is normal. Skin: Skin is warm and dry and no rashes or lesions are noted. Psychiatric: Cooperative, appropriate mood & affect, normal judgment. Limitations: no limitations Course Vital Signs 09/10/18 09/10/18 09/10/18 08:40 09:04 09:25 Temperature 98.0 F Pulse Rate 125 H Respiratory 20 Rate Blood Pressure 145/89 143/86 128/100 O2 Sat by Pulse 99 Oximetry 09/10/18 09/10/18 10:05 10:35 Temperature Pulse Rate 97 Respiratory 18 Rate Blood Pressure 145/104 156/92 O2 Sat by Pulse 99 Oximetry Medical Decision Making - Medical Decision Making Patient's CT the abdomen and pelvis reviewed shows no evidence for thoracic or abdominal aortic dissection. 2 findings concerning for acute cholecystitis although there is enlargement of the common bile duct. Patient's alk alk phos elevated here in emergency room. 3. No central PE. 4. Solitary 8 mm right lower lobe pulmonary nodule is seen. 5. Intermediate left adrenal gland lesion and right benign adrenal adenoma. 6 small left inguinal hernia. 7. Multiple loops of prominent small bowel which may represent possible ileus. Results were discussed with patient. Patient does have tenderness right upper quadrant. Patient does admit that eating drinking seems to make symptoms worse over the last 10 days. Case discussed with physician Dr. Phillips who discussed the case with on-call surgeon Dr. Harper who recommends trying patient on Zosyn keeping nothing by mouth. Patient and family aware the plan. - Lab Data Result diagrams: 09/10/18 09:18 09/10/18 09:18 Lab Results 09/10/18 09/10/18 09/10/18 Range/Units 09:18 09:18 09:18 WBC 11.7 H (3.8-10.6) k/uL RBC 5.73 (4.30-5.90) m/uL Hgb 15.2 (13.0-17.5) gm/dL Hct 47.0 (39.0-53.0) % MCV 82.1 (80.0-100.0) fL MCH 26.5 (25.0-35.0) pg MCHC 32.3 (31.0-37.0) g/dL RDW 13.8 (11.5-15.5) % Plt Count 280 (150-450) k/uL Neutrophils % 81 % Lymphocytes % 10 % Monocytes % 6 % Eosinophils % 1 % Basophils % 0 % Neutrophils # 9.5 H (1.3-7.7) k/uL Lymphocytes # 1.2 (1.0-4.8) k/uL Monocytes # 0.7 (0-1.0) k/uL Eosinophils # 0.1 (0-0.7) k/uL Basophils # 0.0 (0-0.2) k/uL PT (9.0-12.0) sec INR (<1.2) APTT (22.0-30.0) sec Sodium 135 L (137-145) mmol/L Potassium 4.5 (3.5-5.1) mmol/L Chloride 98 (98-107) mmol/L Carbon Dioxide 26 (22-30) mmol/L Anion Gap 11 mmol/L BUN 18 (9-20) mg/dL Creatinine 1.00 (0.66-1.25) mg/dL Est GFR (CKD-EPI)AfAm 89 (>60 ml/min/1.73 sqM) Est GFR (CKD-EPI)NonAf 77 (>60 ml/min/1.73 sqM) Glucose 154 H (74-99) mg/dL Calcium 11.4 H (8.4-10.2) mg/dL Total Bilirubin 0.9 (0.2-1.3) mg/dL AST 14 L (17-59) U/L ALT 19 L (21-72) U/L Alkaline Phosphatase 167 H (38-126) U/L Total Creatine Kinase 23 L (55-170) U/L CK-MB (CK-2) 0.6 (0.0-2.4) ng/mL CK-MB (CK-2) Rel Index 2.6 Troponin I <0.012 (0.000-0.034) ng/mL Total Protein 6.8 (6.3-8.2) g/dL Albumin 3.9 (3.5-5.0) g/dL Amylase 48 (30-110) U/L Lipase 67 (23-300) U/L 09/10/18 Range/Units 09:18 WBC (3.8-10.6) k/uL RBC (4.30-5.90) m/uL Hgb (13.0-17.5) gm/dL Hct (39.0-53.0) % MCV (80.0-100.0) fL MCH (25.0-35.0) pg MCHC (31.0-37.0) g/dL RDW (11.5-15.5) % Plt Count (150-450) k/uL Neutrophils % % Lymphocytes % % Monocytes % % Eosinophils % % Basophils % % Neutrophils # (1.3-7.7) k/uL Lymphocytes # (1.0-4.8) k/uL Monocytes # (0-1.0) k/uL Eosinophils # (0-0.7) k/uL Basophils # (0-0.2) k/uL PT 10.2 (9.0-12.0) sec INR 1.0 (<1.2) APTT 29.3 (22.0-30.0) sec Sodium (137-145) mmol/L Potassium (3.5-5.1) mmol/L Chloride (98-107) mmol/L Carbon Dioxide (22-30) mmol/L Anion Gap mmol/L BUN (9-20) mg/dL Creatinine (0.66-1.25) mg/dL Est GFR (CKD-EPI)AfAm (>60 ml/min/1.73 sqM) Est GFR (CKD-EPI)NonAf (>60 ml/min/1.73 sqM) Glucose (74-99) mg/dL Calcium (8.4-10.2) mg/dL Total Bilirubin (0.2-1.3) mg/dL AST (17-59) U/L ALT (21-72) U/L Alkaline Phosphatase (38-126) U/L Total Creatine Kinase (55-170) U/L CK-MB (CK-2) (0.0-2.4) ng/mL CK-MB (CK-2) Rel Index Troponin I (0.000-0.034) ng/mL Total Protein (6.3-8.2) g/dL Albumin (3.5-5.0) g/dL Amylase (30-110) U/L Lipase (23-300) U/L Disposition Clinical Impression: Acute cholecystitis Disposition: ADMITTED IP TO THIS HOSP Condition: Stable Is patient prescribed a controlled substance at d/c from ED?: No Referrals: Hilton Salazar MD [Primary Care Provider] - 1-2 days Time of Disposition: 11:40
[2018-09-10 09:55] LABS: Basophils % (A) 0 %; Eosinophils # (A) 0.1 k/uL (0-0.7); Eosinophils % (A) 1 %; HGB 15.2 gm/dL (13.0-17.5); Lymphocytes # (A) 1.2 k/uL (1.0-4.8); Lymphocytes % (A) 10 %; MCH 26.5 pg (25.0-35.0); MCHC 32.3 g/dL (31.0-37.0); MCV 82.1 fL (80.0-100.0); Mean Platelet Volume 7.7; Monocytes # (A) 0.7 k/uL (0-1.0); Monocytes % (A) 6 %; Neutrophils # (A) 9.5 k/uL (1.3-7.7); Neutrophils % (A) 81 %; Platelet Count 280 k/uL (150-450); RBC 5.73 m/uL (4.30-5.90); RDW 13.8 % (11.5-15.5); WBC 11.7 k/uL (3.8-10.6)
--- NOTE | 2018-09-10 09:57 | XR ---
EXAMINATION TYPE: XR chest 2V DATE OF EXAM: 09/10/2018 COMPARISON: Prior chest x-ray 02/20/[address] 02/20/2017 HISTORY: Chest pain TECHNIQUE: Frontal and lateral views of the chest are obtained. FINDINGS: There is no focal air space opacity, pleural effusion, or pneumothorax seen. There are und erlying emphysematous changes. The cardiac silhouette size is within normal limits. The osseous str uctures are stable postoperative changes to the distal left clavicle. Right lower lobe lung nodule is present. IMPRESSION: No acute cardiopulmonary process. Previously identified lung nodule in the right lower l obe is again seen.
[2018-09-10 10:02] LABS: Partial Thromboplastin Time 29.3 sec (22.0-30.0); Prothrombin Time 10.2 sec (9.0-12.0)
[2018-09-10 10:03] LABS: Albumin 3.9 g/dL (3.5-5.0); Calcium 11.4 mg/dL (8.4-10.2); Potassium 4.5 mmol/L (3.5-5.1); Total Bilirubin 0.9 mg/dL (0.2-1.3); Total Protein 6.8 g/dL (6.3-8.2)
[2018-09-10 10:18] LABS: Creatine Kinase 23 U/L (55-170)
[2018-09-10 10:32] LABS: Creatine Kinase MB 0.6 ng/mL (0.0-2.4); Troponin I <0.012 ng/mL (0.000-0.034)
--- NOTE | 2018-09-10 11:18 | CT ---
EXAMINATION TYPE: CT angio thor/abd pel aorta DATE OF EXAM: 09/10/2018 COMPARISON: NONE HISTORY: Chest pain CT DLP: 2247.4 mGycm. Automated Exposure Control for Dose Reduction was Utilized. CONTRAST: CT scan of the thorax, abdomen and pelvis is performed without and with IV Contrast, patient injected with 100 mL of Isovue 370. FINDINGS: LUNGS: In the visualized portions of the lungs there are mild centrilobular emphysematous changes the re is also a noncalcified smoothly marginated rounded 8 mm right lower lobe pulmonary nodule. This ap pears solitary although the lung apices are not imaged. No focal consolidation is seen. There is no pleural effusion or pneumothorax seen. The tracheobronchial tree is patent. Minimal pleural thicken ing is noted posteriorly along the left upper lobe. MEDIASTINUM: The unenhanced images demonstrate no evidence of intramural hematoma. There are no great er than 1 cm hilar or mediastinal lymph nodes. No pericardial effusion is seen. LIVER/GB: The liver in the angiographic phase demonstrates diffuse hypoattenuation, limiting evaluati on for underlying hepatic masses with focal fatty sparing around the gallbladder fossa wall thickenin g of the gallbladder and surrounding fat density measuring up to 1.4 cm that could represent chronic fat deposition although there is some fat stranding and may represent acute inflammatory change. Few calcified calculi are seen dependently. Common bile duct is nonenlarged measuring 6 mm. PANCREAS: No significant abnormality is seen. SPLEEN: No significant abnormality is seen. ADRENALS: There is an enhancing 1.7 cm left adrenal nodule that does not be criteria for adenoma on t his examination however is somewhat low density on precontrast imaging and right adrenal gland adenom a is seen measuring 1.8 cm. Therefore the left mass could represent adrenal adenoma and MRI with in a nd out of phase imaging could confirm benignity KIDNEYS: No nephrolithiasis. There is a left renal cyst measuring up to 2.5 cm in coronal caudal dime nsion. BOWEL: There is a small left inguinal hernia. Colonic diverticulosis is seen without tear colonic fat stranding. Multiple loops of prominent small bowel are seen measuring up to 2.6 cm although no dilat ed small bowel is noted. Multifocal small bowel wall thickening may relate to peristalsis or mild ent eritis. GENITAL ORGANS: Prostate gland is diffusely heterogenous containing central zone calcifications. LYMPH NODES: No greater than 1cm abdominal or pelvic lymph nodes are appreciated. OSSEOUS STRUCTURES: Multilevel mild degenerative changes of the spine are seen. OTHER: No evidence of thoracic or abdominal aortic dissection is seen. Moderate calcific and noncalci fic atheromatous plaquing is noted of the abdominal and thoracic aorta. IMPRESSION: 1. No evidence of thoracic or abdominal aortic dissection. 2. Findings concerning for acute on chronic cholecystitis although there is no enlargement of the com mon bile duct and therefore correlation with clinical exam and serum laboratory values is recommended . Few calcified gallstones are also noted. 3. No central pulmonary embolism 4. Solitary 8mm right lower lobe pulmonary nodule although the lung apices are not imaged. Given its size as could be further evaluated with PET/CT. 5. Indeterminate left adrenal gland lesion and right benign adrenal adenoma. Left adrenal gland lesio n does not meet criteria for adenoma on this examination but could be further assessed with MRI utili zing in and out of phase imaging. 6. Small left inguinal hernia vasa recta. 7. Multiple loops of prominent small bowel with mild bowel wall thickening could relate to mild ileus in enteritis but is nonspecific and could also relate to peristalsis.
[2018-09-10] MEDS ORDERED: PIPERACILLIN-TAZOBACTAM 3.375 GM in SODIUM CHLORIDE 0.9% 100 ML IVPB STA (11:37)
[2018-09-10] MEDS ORDERED: SODIUM CHLORIDE 0.9% 1,000 ML IV ONE (11:40)
[2018-09-10] MEDS ORDERED: ONDANSETRON 4 MG/2 ML VIAL IVP PRN (11:40)
[2018-09-10] MEDS ORDERED: NALOXONE 0.4 MG/ML 1 ML VIAL IV PRN (11:40)
--- NOTE | 2018-09-10 14:44 | P.GSHP ---
History of Present Illness H&P Date: 09/10/18 67-year-old male who presented on the day of admission to the emergency room with a chief complaint of developing midsternal chest pain. Patient stated he took a deep breath it hurt. Patient stated over the last 10 days has been experiencing poor appetite nausea sensation with epigastric pain. Patient points to the lower midabdomen this to the reference point. Patient states is been no change in bowel habits. Patient states she's not had any prior episodes. Described the pain to the midsternal area sharp stabbing type pain. Denied any recent cough fever or chills. Patient states he is on a blood thinner not certain why he takes it " patient states he thinks he has an irregular rhythm. 12-lead EKG obtained on admission does show sinus rhythm currently sitting up in a chair and states the abdominal discomfort has slightly improved. Patient does not have a history of eating fatty foods which would trigger pain. White count was 11.7 electrolytes within normal limits AST and ALT are not elevated alkaline phosphatase 67 In the emergency room patient did have a CAT scan of the thorax abdomen and pelvis reviewing the report no evidence of thoracic or abdominal aortic dissection. Findings are concerning for acute on chronic cholecystitis there is no enlargement of the common bile duct. No pulmonary emboli. 8 mm right lower lobe pulmonary nodule noted Past surgical history hernia repair, orthopedic surgery, cardiac ablation. 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 Past Anesthesia/Blood Transfusion Reactions: No Reported Reaction Past Psychological History: Depression Additional Psychological History / Comment(s): Pt resides with his spouse. He is independent. He had depression in the past. Smoking Status: Former smoker Past Alcohol Use History: Occasional Additional Past Alcohol Use History / Comment(s): QUIT SMOKING APPROX 1999, STARTED SMOKING 1967 Past Drug Use History: None Reported - Past Family History Mother History Unknown: Yes Family Medical History: No Reported History Additional Family Medical History / Comment(s): Pt states he does not know his mother's PMH. She is . Father Additional Family Medical History / Comment(s): IN AUTO ACC. Medications and Allergies Home Medications Medication Instructions Recorded Confirmed Type glipiZIDE [Glucotrol] 5 mg PO BID 05/21/14 09/10/18 History Simvastatin [Zocor] 80 mg PO HS 12/28/16 09/10/18 History Apixaban [Eliquis] 5 mg PO BID #60 tab 01/05/17 09/10/18 Rx metFORMIN HCL 1,000 mg PO BID 02/20/17 09/10/18 History Flecainide Acetate [Tambocor] 100 mg PO BID 03/22/18 09/10/18 History Lisinopril [Prinivil] 10 mg PO DAILY 03/22/18 09/10/18 History Allergies Allergy/AdvReac Type Severity Reaction Status Date / Time ibuprofen Allergy Anaphylaxis Verified 09/10/18 08:57 naproxen [From Aleve] Allergy Anaphylaxis Verified 09/10/18 08:57 Surgical - Exam Vital Signs Temp Pulse Resp BP Pulse Ox 98.0 F 125 H 20 145/89 99 09/10/18 08:40 09/10/18 08:40 09/10/18 08:40 09/10/18 08:40 09/10/18 08:40 GENERAL APPEARANCE: The patient is alert, oriented, in no acute distress sitting up in a chair states it does not hurt taking a deep breath abdominal pain improving. VITAL SIGNS: Reviewed HEENT: Head is normocephalic and atraumatic. Pupils are equal and reactive. The nares are patent. Oropharynx is clear without lesions. NECK: Supple without lymphadenopathy. Traches midline. HEART: S1, S2. Regular rate and rhythm. Denying chest pain LUNGS: No crackles or wheezes are heard. Denying any shortness of breath ABDOMEN: Soft, obese mild tenderness midepigastric area nondistended with good bowel sounds. No peritoneal signs. No palpable organomegaly or masses. EXTREMITIES: Normal skin color and turgor. No cyanosis, rash, ulceration, clubbing or edema. Radial pedal pulses are 2/4 bilaterally. NEUROLOGICAL: No focal deficits. Strength and sensation are grossly intact. Results - Labs 09/10/18 09:18 09/10/18 09:18 Abnormal Lab Results - Last 24 Hours (Table) 09/10/18 09/10/18 09/10/18 Range/Units 09:18 09:18 09:18 WBC 11.7 H (3.8-10.6) k/uL Neutrophils # 9.5 H (1.3-7.7) k/uL Sodium 135 L (137-145) mmol/L Glucose 154 H (74-99) mg/dL Calcium 11.4 H (8.4-10.2) mg/dL AST 14 L (17-59) U/L ALT 19 L (21-72) U/L Alkaline Phosphatase 167 H (38-126) U/L Total Creatine Kinase 23 L (55-170) U/L Diabetes panel 09/10/18 Range/Units 09:18 Sodium 135 L (137-145) mmol/L Potassium 4.5 (3.5-5.1) mmol/L Chloride 98 (98-107) mmol/L Carbon Dioxide 26 (22-30) mmol/L BUN 18 (9-20) mg/dL Creatinine 1.00 (0.66-1.25) mg/dL Glucose 154 H (74-99) mg/dL Calcium 11.4 H (8.4-10.2) mg/dL AST 14 L (17-59) U/L ALT 19 L (21-72) U/L Alkaline Phosphatase 167 H (38-126) U/L Total Protein 6.8 (6.3-8.2) g/dL Albumin 3.9 (3.5-5.0) g/dL Calcium panel 09/10/18 Range/Units 09:18 Calcium 11.4 H (8.4-10.2) mg/dL Albumin 3.9 (3.5-5.0) g/dL Pituitary panel 09/10/18 Range/Units 09:18 Sodium 135 L (137-145) mmol/L Potassium 4.5 (3.5-5.1) mmol/L Chloride 98 (98-107) mmol/L Carbon Dioxide 26 (22-30) mmol/L BUN 18 (9-20) mg/dL Creatinine 1.00 (0.66-1.25) mg/dL Glucose 154 H (74-99) mg/dL Calcium 11.4 H (8.4-10.2) mg/dL Adrenal panel 09/10/18 Range/Units 09:18 Sodium 135 L (137-145) mmol/L Potassium 4.5 (3.5-5.1) mmol/L Chloride 98 (98-107) mmol/L Carbon Dioxide 26 (22-30) mmol/L BUN 18 (9-20) mg/dL Creatinine 1.00 (0.66-1.25) mg/dL Glucose 154 H (74-99) mg/dL Calcium 11.4 H (8.4-10.2) mg/dL Total Bilirubin 0.9 (0.2-1.3) mg/dL AST 14 L (17-59) U/L ALT 19 L (21-72) U/L Alkaline Phosphatase 167 H (38-126) U/L Total Protein 6.8 (6.3-8.2) g/dL Albumin 3.9 (3.5-5.0) g/dL Assessment and Plan Assessment: Impression Present on admission mid epigastric pain with a CAT scan of the abdomen pelvis showing no evidence of a pulmonary emboli or no evidence of thoracic abdominal aortic dissection History of an ablation for atrial fibrillation on anticoagulation elquis History abdominal hernia repair Computed tomography scan abdomen pelvis findings concerning for acute chronic cholecystitis Type 2 diabetes Plan Elquis to be on hold for 48 hours for planned surgery on lap cholecystectomy Resume home meds Low-fat diet Repeat labs in the morning DVT and GI prophylaxis Further surgical recommendations pending clinical course Consult medicine for medical management IV Zosyn as ordered The above impression and plan of care have been discussed and directed by signing physician. Giovana Reyes nurse practitioner acting as scribe for signing physician.
[2018-09-10 16:58] LABS: Glucose,Whole Blood 143 mg/dL (75-99)
[2018-09-10] MEDS: glipiZIDE 5 MG TAB PO SCH (16:58)
[2018-09-10] MEDS: INSULIN ASPART 100 UNIT/ML 1 ML 10 ML VIAL SQ SCH (16:59)
[2018-09-10 17:15] LABS: Appearance,Urine Clear (Clear); Bilirubin,Urine Negative (Negative); Blood,Urine Negative (Negative); Color,Urine Yellow; Glucose,Urine (UA) 1+ (Negative); Ketones,Urine Negative (Negative); Leukocyte Esterase,Urine Negative (Negative); Mucus,Urine Rare /hpf; Nitrite,Urine Negative (Negative); PH, Urine 5.5 (5.0-8.0); Protein,Urine 1+ (Negative); RBC,Urine 2 /hpf (0-5); Squamous Epithelial Cell,Urine <1 /hpf (0-4)
[2018-09-10 17:26] LABS: Specific Gravity,Urine >1.050 (1.001-1.035)
[2018-09-10] MEDS: MORPHINE SULFATE 4 MG/ML SYRINGE IV PRN (20:45)
[2018-09-10 20:59] LABS: Glucose,Whole Blood 114 mg/dL (75-99)
[2018-09-10] MEDS: FLECAINIDE 50 MG TAB PO SCH (23:25)
[2018-09-10] MEDS: ATORVASTATIN 40 MG TAB PO SCH (23:25)
[2018-09-10] MEDS: metFORMIN 500 MG TAB PO SCH (23:25)
[2018-09-11 00:14] LABS: Hemoglobin A1C 6.4 % (4.0-6.0)
[2018-09-11] MEDS: INSULIN ASPART 100 UNIT/ML 1 ML 10 ML VIAL SQ SCH ×5 (01:01→21:11)
[2018-09-11] MEDS: PIPERACILLIN-TAZOBACTAM 3.375 GM in SODIUM CHLORIDE 0.9% 100 ML IVPB SCH ×3 (01:07→17:03)
[2018-09-11] MEDS: MORPHINE SULFATE 4 MG/ML SYRINGE IV PRN (05:55)
[2018-09-11 07:34] LABS: Glucose,Whole Blood 101 mg/dL (75-99)
[2018-09-11] MEDS: glipiZIDE 5 MG TAB PO SCH ×2 (07:51→17:10)
[2018-09-11] MEDS: LISINOPRIL 10 MG TAB PO SCH (07:52)
[2018-09-11] MEDS: FLECAINIDE 50 MG TAB PO SCH ×2 (07:52→21:12)
[2018-09-11] MEDS: metFORMIN 500 MG TAB PO SCH ×2 (07:52→21:12)
[2018-09-11 09:03] LABS: Basophils % (A) 0 %; Eosinophils # (A) 0.1 k/uL (0-0.7); Eosinophils % (A) 1 %; HCT 42.9 % (39.0-53.0); HGB 13.2 gm/dL (13.0-17.5); Hypochromasia Slight; Lymphocytes % (A) 11 %; MCH 25.8 pg (25.0-35.0); MCHC 30.8 g/dL (31.0-37.0); MCV 83.8 fL (80.0-100.0); Monocytes # (A) 0.6 k/uL (0-1.0); Monocytes % (A) 6 %; Neutrophils # (A) 7.7 k/uL (1.3-7.7); Neutrophils % (A) 79 %; Platelet Count 261 k/uL (150-450); RBC 5.13 m/uL (4.30-5.90); RDW 13.9 % (11.5-15.5); WBC 9.7 k/uL (3.8-10.6)
[2018-09-11 09:17] LABS: Albumin 3.5 g/dL (3.5-5.0); Calcium 10.4 mg/dL (8.4-10.2); Potassium 4.4 mmol/L (3.5-5.1); Total Bilirubin 0.9 mg/dL (0.2-1.3); Total Protein 6.2 g/dL (6.3-8.2)
[2018-09-11 10:40] VITALS: BMI 30.7
[2018-09-11 12:38] LABS: Glucose,Whole Blood 85 mg/dL (75-99)
--- NOTE | 2018-09-11 15:14 | P.CONS ---
History of Present Illness - Reason for Consult Consult date: 09/11/18 medical management Requesting physician: Curt Harper - Chief Complaint nausea, epigastric pain - History of Present Illness 59-year-old male who presented to the emergency room on 09/10/2018 with a chief complaint of chest discomfort, epigastric pain, and nausea that has been present for over a week. The patient denies shortness of breath, cough , or congestion. He denies fever or chills. Denies dizziness or lightheadedness. Denies constipation or diarrhea. In the emergency room a chest x-ray was completed which was negative for an acute cardiopulmonary process. Previously identified lung nodule in the right lower lobe is again visualized. Thoracic abdominal CT was negative for evidence of thoracic or abdominal aortic dissection. Findings concerning for acute on chronic cholecystitis although there is no enlargement of the common bile duct. Few calcified gallstones are noted. Negative for pulmonary embolism. 8 mm right lower lobe pulmonary nodule. Indeterminate left adrenal gland lesion and right benign adrenal adenoma. Left adrenal gland lesion does not meet criteria for adenoma. Small left internal hernia. Multiple loops of prominent small bowel with mild bowel wall thickening could relate to mild ileus or enteritis but is nonspecific and also could relate to peristalsis. Laboratory data upon admission reveals white count 11.7. Hemoglobin 15.2. Platelet count 280. Sodium 135. Potassium 4.5. BUN 18. Creatinine 1.0. Glucose 154. AST 14. ALT 19. Alkaline phosphatase 167. Troponin negative 1. The patient was admitted to the hospital under the care of Dr. Harper. He was started on Zosyn. Dr. Hale was consulted for medical management. The patient is scheduled for laparoscopic cholecystectomy tomorrow. Review of Systems Those systems with pertinent positive or pertinent negative responses have been documented in the HPI Past Medical History Past Medical History: Atrial Fibrillation, Cancer, COPD, Diabetes Mellitus, Hyperlipidemia, Hypertension, Myocardial Infarction (MO), Pneumonia Additional Past Medical History / Comment(s): Afib but none since ablation, 2003 -had chest pain went to hospital in [place] and told he had a slight MO-no procedure done per pt, NIDDM type II, bronchitis, melanoma removed from L upper chest, Last Myocardial Infarction Date:: 2003 History of Any Multi-Drug Resistant Organisms: None Reported Past Surgical History: Cardiac Ablation, Hernia Repair, Orthopedic Surgery Additional Past Surgical History / Comment(s): 02/01/17 cardiac ablation for Afib , HOWIE, L chest melanoma removed, L inguinal hernia surgery x2, L lower leg fracture with hardware (ORIF), L shoulder had nerve/tendon surgery, R wrist fracture with pins, bilateral cataract removals/lens implants. Past Anesthesia/Blood Transfusion Reactions: No Reported Reaction Past Psychological History: Depression Additional Psychological History / Comment(s): Pt resides with his spouse. He is independent. He had depression in the past. Smoking Status: Former smoker Past Alcohol Use History: Occasional Additional Past Alcohol Use History / Comment(s): QUIT SMOKING APPROX 1999, STARTED SMOKING 1966 Past Drug Use History: None Reported - Past Family History Mother History Unknown: Yes Family Medical History: No Reported History Additional Family Medical History / Comment(s): Pt states he does not know his mother's PMH. She is . Father Additional Family Medical History / Comment(s): IN [facility]. Medications and Allergies Home Medications Medication Instructions Recorded Confirmed Type glipiZIDE [Glucotrol] 5 mg PO BID 05/21/14 09/10/18 History Simvastatin [Zocor] 80 mg PO HS 12/28/16 09/10/18 History Apixaban [Eliquis] 5 mg PO BID #60 tab 01/05/17 09/10/18 Rx metFORMIN HCL 1,000 mg PO BID 02/20/17 09/10/18 History Flecainide Acetate [Tambocor] 100 mg PO BID 03/22/18 09/10/18 History Lisinopril [Prinivil] 10 mg PO DAILY 03/22/18 09/10/18 History Allergies Allergy/AdvReac Type Severity Reaction Status Date / Time ibuprofen Allergy Anaphylaxis Verified 09/10/18 08:57 naproxen [From Aleve] Allergy Anaphylaxis Verified 09/10/18 08:57 Physical Exam Vitals: Vital Signs Temp Pulse Pulse Resp BP BP BP 09/11/18 05:45 98.3 F 87 20 129/70 09/10/18 23:00 98 F 78 20 135/72 09/10/18 15:50 98.7 F 98 18 145/77 09/10/18 13:46 99.0 F 91 16 128/83 09/10/18 13:06 98.0 F 87 18 145/83 09/10/18 13:00 89 24 11/13/18 12:50 93 14 09/10/18 12:40 93 17 09/10/18 12:30 94 25 H 147/95 09/10/18 12:20 86 36 H 147/95 09/10/18 12:10 90 30 H 147/95 09/10/18 12:00 87 24 145/71 09/10/18 11:50 92 25 H 145/71 09/10/18 11:40 92 32 H 145/71 09/10/18 11:30 92 15 128/98 09/10/18 11:20 92 14 128/98 09/10/18 11:10 89 21 128/98 Pulse Ox 09/11/18 05:45 95 09/10/18 23:00 95 09/10/18 15:50 99 09/10/18 13:46 96 09/10/18 13:06 98 09/10/18 13:00 09/10/18 12:50 09/10/18 12:40 09/10/18 12:30 09/10/18 12:20 09/10/18 12:10 94 L 09/10/18 12:00 95 09/10/18 11:50 98 09/10/18 11:40 97 09/10/18 11:30 98 09/10/18 11:20 98 09/10/18 11:10 98 Intake and Output 09/10/18 09/11/18 09/11/18 22:59 06:59 14:59 Intake Total 200 100 Balance 200 100 Intake: Oral 200 100 Other: Voiding Method Toilet Toilet Urinal Urinal # Voids 2 1 Weight 86.183 kg GENERAL: This is a 67-year-old male in no apparent distress at the time of examination. Pleasant and cooperative. HEENT: Head is atraumatic, normocephalic. Pupils are equal, round, and reactive to light. Sclerae anicteric. Conjunctivae are clear. Mucus membranes of the mouth are moist. Neck is supple. RESPIRATORY: Clear to auscultation. No wheezes, rales, or rhonchi. No use of accessory muscles. Patient maintaining oxygen saturation greater than 92%. CARDIOVASCULAR: Regular rate and rhythm. S1 and S2 noted. GASTROINTESTINAL: No distention noted. Abdomen soft and round. Normal active bowel sounds auscultated x 4 quadrants. Mild pain and tenderness noted on palpation. INTEGUMENTARY: No cyanosis. No jaundice. No rashes noted. No cellulitis noted. EXTREMITIES: 2+ peripheral pulses. No evidence of peripheral edema. No calf tenderness noted. NEUROLOGIC: Cranial nerves II-XII intact. PSYCHIATRIC: Awake, alert, and oriented X 3. Results CBC & Chem 7: 09/11/18 08:28 09/11/18 08:28 Labs: Abnormal Lab Results - Last 24 Hours (Table) 09/10/18 09/10/18 09/10/18 Range/Units 09:18 16:55 16:56 MCHC (31.0-37.0) g/dL Sodium (137-145) mmol/L Glucose (74-99) mg/dL POC Glucose (mg/dL) 143 H (75-99) mg/dL Hemoglobin A1c 6.4 H (4.0-6.0) % Calcium (8.4-10.2) mg/dL Alkaline Phosphatase (38-126) U/L Total Protein (6.3-8.2) g/dL Ur Specific [place] >1.050 H (1.001-1.035) Urine Protein 1+ H (Negative) Urine Glucose (UA) 1+ H (Negative) Urine Mucus Rare H (None) /hpf 09/10/18 09/11/18 09/11/18 Range/Units 20:38 06:55 08:28 MCHC 30.8 L (31.0-37.0) g/dL Sodium (137-145) mmol/L Glucose (74-99) mg/dL POC Glucose (mg/dL) 114 H 101 H (75-99) mg/dL Hemoglobin A1c (4.0-6.0) % Calcium (8.4-10.2) mg/dL Alkaline Phosphatase (38-126) U/L Total Protein (6.3-8.2) g/dL Ur Specific [place] (1.001-1.035) Urine Protein (Negative) Urine Glucose (UA) (Negative) Urine Mucus (None) /hpf 09/11/18 Range/Units 08:28 MCHC (31.0-37.0) g/dL Sodium 135 L (137-145) mmol/L Glucose 169 H (74-99) mg/dL POC Glucose (mg/dL) (75-99) mg/dL Hemoglobin A1c (4.0-6.0) % Calcium 10.4 H (8.4-10.2) mg/dL Alkaline Phosphatase 156 H (38-126) U/L Total Protein 6.2 L (6.3-8.2) g/dL Ur Specific [place] (1.001-1.035) Urine Protein (Negative) Urine Glucose (UA) (Negative) Urine Mucus (None) /hpf Assessment and Plan Plan: ASSESSMENT: Acute cholecystitis History of paroxysmal atrial fibrillation, status post ablation 2016, on long- term anticoagulation with Eliquis Diabetes mellitus, type II COPD, no evidence of acute exacerbation Hypertension Hyperlipidemia History of melanoma left upper chest with surgical resection History of inguinal hernia repair 2 History of depression Remote history of nicotine dependence, patient quit smoking in 1999 Obesity: BMI 30.7 PLAN: Continue surgical care per Dr. Harper. Patient scheduled for laparoscopic cholecystectomy tomorrow Continue to hold Eliquis-may resume postoperatively. Home meds as appropriate Monitor labs GI prophylaxis: Pepcid 20mg IV q12 hours DVT prophylaxis: On hold for OR Monitor vital signs and address as appropriate Further recommendations pending patient's course Thank you for this consultation We will continue to follow with Frankie during his hospitalization Nurse practitioner note has been reviewed by physician. Signing provider agrees with the documented findings, assessment, and plan of care.
--- NOTE | 2018-09-11 15:30 | P.PN ---
Subjective Progress Note Date: 09/11/18 67-year-old male being seen on rounds resting in bed Had 1 brief episode this morning of right lower quadrant abdominal pain. The elquis has been on hold currently tolerating a diet where the plan of care scheduled tomorrow for laparoscopic cholecystectomy. Labs reviewed Objective - Vital Signs Vital signs: Vital Signs Temp 97.9 F 09/11/18 15:00 Pulse 81 09/11/18 15:00 Resp 18 09/11/18 15:00 BP 126/75 09/11/18 15:00 Pulse Ox 96 09/11/18 15:00 Intake & Output 09/10/18 09/11/18 09/11/18 18:59 06:59 18:59 Intake Total 300 400 Balance 300 400 Weight 86.183 kg 86.183 kg Intake: Oral 300 400 Other: Voiding Method Urinal Toilet Toilet Urinal Urinal # Voids 1 1 # Bowel Movements 1 - Exam Physical exam Abdomen round soft nontender nondistended no nausea no vomiting reports one brief episode of right lower quadrant abdominal pain this morning nonsense urinating no difficulty no frequent stooling - Labs CBC & Chem 7: 09/11/18 08:28 09/11/18 08:28 Labs: Abnormal Lab Results - Last 24 Hours (Table) 09/10/18 09/10/18 09/10/18 Range/Units 09:18 16:55 16:56 MCHC (31.0-37.0) g/dL Sodium (137-145) mmol/L Glucose (74-99) mg/dL POC Glucose (mg/dL) 143 H (75-99) mg/dL Hemoglobin A1c 6.4 H (4.0-6.0) % Calcium (8.4-10.2) mg/dL Alkaline Phosphatase (38-126) U/L Total Protein (6.3-8.2) g/dL Ur Specific [place] >1.050 H (1.001-1.035) Urine Protein 1+ H (Negative) Urine Glucose (UA) 1+ H (Negative) Urine Mucus Rare H (None) /hpf 09/10/18 09/11/18 09/11/18 Range/Units 20:38 06:55 08:28 MCHC 30.8 L (31.0-37.0) g/dL Sodium (137-145) mmol/L Glucose (74-99) mg/dL POC Glucose (mg/dL) 114 H 101 H (75-99) mg/dL Hemoglobin A1c (4.0-6.0) % Calcium (8.4-10.2) mg/dL Alkaline Phosphatase (38-126) U/L Total Protein (6.3-8.2) g/dL Ur Specific [place] (1.001-1.035) Urine Protein (Negative) Urine Glucose (UA) (Negative) Urine Mucus (None) /hpf 09/11/18 Range/Units 08:28 MCHC (31.0-37.0) g/dL Sodium 135 L (137-145) mmol/L Glucose 169 H (74-99) mg/dL POC Glucose (mg/dL) (75-99) mg/dL Hemoglobin A1c (4.0-6.0) % Calcium 10.4 H (8.4-10.2) mg/dL Alkaline Phosphatase 156 H (38-126) U/L Total Protein 6.2 L (6.3-8.2) g/dL Ur Specific [place] (1.001-1.035) Urine Protein (Negative) Urine Glucose (UA) (Negative) Urine Mucus (None) /hpf Assessment and Plan Assessment: Impression Present on admission mid epigastric pain with a CAT scan of the abdomen pelvis showing no evidence of a pulmonary emboli or no evidence of thoracic abdominal aortic dissection History of an ablation for atrial fibrillation on anticoagulation elquis History abdominal hernia repair Computed tomography scan abdomen pelvis findings concerning for acute chronic cholecystitis Type 2 diabetes Plan planned surgery on lap cholecystectomy Resume home meds Low-fat diet Repeat labs in the morning DVT and GI prophylaxis elquis on hold IV Zosyn as ordered Nothing by mouth after midnight for planned procedure The above impression and plan of care have been discussed and directed by signing physician. Giovana Reyes nurse practitioner acting as scribe for signing physician.
[2018-09-11 17:10] LABS: Glucose,Whole Blood 103 mg/dL (75-99)
[2018-09-11 20:50] LABS: Glucose,Whole Blood 139 mg/dL (75-99)
[2018-09-11] MEDS: ATORVASTATIN 40 MG TAB PO SCH (21:12)
[2018-09-11] MEDS: FAMOTIDINE 20 MG/2 ML VIAL IV SCH (21:13)
[2018-09-12] MEDS: PIPERACILLIN-TAZOBACTAM 3.375 GM in SODIUM CHLORIDE 0.9% 100 ML IVPB SCH ×3 (00:03→16:41)
[2018-09-12] MEDS ORDERED: DEXAMETHASONE SOD PHOSPHATE 10 MG/ML 1 ML VIAL IV ONE (01:27)
[2018-09-12] MEDS ORDERED: MIDAZOLAM 2 MG/2 ML VIAL IV PRN (01:27)
[2018-09-12] MEDS ORDERED: LIDOCAINE 1% 20 ML VIAL (10MG/ML) FOR IV START INTRADERMA PRN (01:27)
[2018-09-12] MEDS ORDERED: ONDANSETRON 4 MG/2 ML VIAL IVP ONE (01:27)
[2018-09-12] MEDS ORDERED: fentaNYL (PF) 50 MCG/ML 2 ML AMP IV PRN (06:00)
[2018-09-12 07:08] LABS: Glucose,Whole Blood 102 mg/dL (75-99)
[2018-09-12] MEDS: INSULIN ASPART 100 UNIT/ML 1 ML 10 ML VIAL SQ SCH ×4 (07:11→22:14)
[2018-09-12] MEDS: glipiZIDE 5 MG TAB PO SCH ×2 (08:33→17:15)
[2018-09-12] MEDS: metFORMIN 500 MG TAB PO SCH ×2 (08:34→21:39)
[2018-09-12] MEDS: LACTATED RINGERS 1,000 ML IV SCH (08:34)
--- NOTE | 2018-09-12 08:52 | P.PN ---
Subjective Progress Note Date: 09/12/18 09/11/2018 59-year-old male who presented to the emergency room on 09/10/2018 with a chief complaint of chest discomfort, epigastric pain, and nausea that has been present for over a week. The patient denies shortness of breath, cough , or congestion. He denies fever or chills. Denies dizziness or lightheadedness. Denies constipation or diarrhea. In the emergency room a chest x-ray was completed which was negative for an acute cardiopulmonary process. Previously identified lung nodule in the right lower lobe is again visualized. Thoracic abdominal CT was negative for evidence of thoracic or abdominal aortic dissection. Findings concerning for acute on chronic cholecystitis although there is no enlargement of the common bile duct. Few calcified gallstones are noted. Negative for pulmonary embolism. 8 mm right lower lobe pulmonary nodule. Indeterminate left adrenal gland lesion and right benign adrenal adenoma. Left adrenal gland lesion does not meet criteria for adenoma. Small left internal hernia. Multiple loops of prominent small bowel with mild bowel wall thickening could relate to mild ileus or enteritis but is nonspecific and also could relate to peristalsis. Laboratory data upon admission reveals white count 11.7. Hemoglobin 15.2. Platelet count 280. Sodium 135. Potassium 4.5. BUN 18. Creatinine 1.0. Glucose 154. AST 14. ALT 19. Alkaline phosphatase 167. Troponin negative 1. The patient was admitted to the hospital under the care of Dr. Harper. He was started on Zosyn. Dr. Hale was consulted for medical management. The patient is scheduled for laparoscopic cholecystectomy tomorrow. 09/12/2018 Patient examined at the bedside. Patient is awake and alert. Denies shortness of breath, cough, or congestion. He reports intermittent abdominal pain. He is NPO. Scheduled for laparoscopic cholecystectomy Objective - Vital Signs Vital signs: Vital Signs Temp 98.0 F 09/12/18 08:27 Pulse 81 09/12/18 08:27 Resp 18 09/12/18 08:27 BP 123/68 09/12/18 08:27 Pulse Ox 96 09/12/18 08:27 Intake & Output 09/11/18 09/12/18 09/12/18 18:59 06:59 18:59 Intake Total 400 Balance 400 Weight 86.183 kg Intake: Oral 400 Other: Voiding Method Toilet Urinal # Voids 1 4 # Bowel Movements 1 - Exam GENERAL: This is a 67-year-old male in no apparent distress at the time of examination. Pleasant and cooperative. HEENT: Head is atraumatic, normocephalic. Pupils are equal, round, and reactive to light. Sclerae anicteric. Conjunctivae are clear. Mucus membranes of the mouth are moist. Neck is supple. RESPIRATORY: Clear to auscultation. No wheezes, rales, or rhonchi. No use of accessory muscles. Patient maintaining oxygen saturation greater than 92%. CARDIOVASCULAR: Regular rate and rhythm. S1 and S2 noted. GASTROINTESTINAL: No distention noted. Abdomen soft and round. Normal active bowel sounds auscultated x 4 quadrants. Mild pain and tenderness noted on palpation. INTEGUMENTARY: No cyanosis. No jaundice. No rashes noted. No cellulitis noted. EXTREMITIES: 2+ peripheral pulses. No evidence of peripheral edema. No calf tenderness noted. NEUROLOGIC: Cranial nerves II-XII intact. PSYCHIATRIC: Awake, alert, and oriented X 3. - Labs CBC & Chem 7: 09/11/18 08:28 09/11/18 08:28 Labs: Abnormal Lab Results - Last 24 Hours (Table) 09/11/18 09/11/18 09/11/18 Range/Units 08:28 08:28 17:07 MCHC 30.8 L (31.0-37.0) g/dL Sodium 135 L (137-145) mmol/L Glucose 169 H (74-99) mg/dL POC Glucose (mg/dL) 103 H (75-99) mg/dL Calcium 10.4 H (8.4-10.2) mg/dL Alkaline Phosphatase 156 H (38-126) U/L Total Protein 6.2 L (6.3-8.2) g/dL 09/11/18 09/12/18 Range/Units 20:37 07:01 MCHC (31.0-37.0) g/dL Sodium (137-145) mmol/L Glucose (74-99) mg/dL POC Glucose (mg/dL) 139 H 102 H (75-99) mg/dL Calcium (8.4-10.2) mg/dL Alkaline Phosphatase (38-126) U/L Total Protein (6.3-8.2) g/dL Assessment and Plan Plan: ASSESSMENT: Acute cholecystitis History of paroxysmal atrial fibrillation, status post ablation 2016, on long- term anticoagulation with Eliquis Diabetes mellitus, type II COPD, no evidence of acute exacerbation Hypertension Hyperlipidemia History of melanoma left upper chest with surgical resection History of inguinal hernia repair 2 History of depression Remote history of nicotine dependence, patient quit smoking in 1999 Obesity: BMI 30.7 PLAN: Continue surgical care per Dr. Harper. Patient scheduled for laparoscopic cholecystectomy today Continue to hold Eliquis-may resume postoperatively. Home meds as appropriate Monitor labs GI prophylaxis: Pepcid 20mg IV q12 hours DVT prophylaxis: On hold for OR Monitor vital signs and address as appropriate Further recommendations pending patient's course Nurse practitioner note has been reviewed by physician. Signing provider agrees with the documented findings, assessment, and plan of care.
[2018-09-12] MEDS ORDERED: IV FLUID CONTINUATION 1,000 ML IV ONE (10:29)
[2018-09-12 10:31] LABS: Glucose,Whole Blood 93 mg/dL (75-99)
[2018-09-12] MEDS ORDERED: HEPARIN SODIUM,PORCINE 5,000 UNIT/ML 1 ML VIAL SQ ONE (10:45)
--- NOTE | 2018-09-12 10:57 | P.PN ---
Progress Note - Text Progress Note Date: 09/12/18 The patient's pain has improved today. He has minimal complaints right upper quadrant pain. Patient will undergo laparoscopic cholecystectomy today.
[2018-09-12] MEDS ORDERED: SUCCINYLCHOLINE CHLORIDE 100 MG/5 ML SYR IV ONE (11:06)
[2018-09-12] MEDS ORDERED: PROPOFOL 10 MG/ML 20 ML VIAL IV ONE (11:06)
[2018-09-12] MEDS ORDERED: GLYCOPYRROLATE 0.2 MG/ML 2 ML VIAL ONE (11:06)
[2018-09-12] MEDS ORDERED: ROCURONIUM BROMIDE 10 MG/ML 10 ML VIAL IV ONE (11:06)
[2018-09-12] MEDS ORDERED: fentaNYL (PF) 50 MCG/ML 2 ML AMP ONE (11:06)
[2018-09-12] MEDS ORDERED: NEOSTIGMINE 1 MG/ML 10 ML VIAL ONE (11:06)
[2018-09-12] MEDS ORDERED: LIDOCAINE 1% INJ 10MG/ML (20 ML MDV) ONE (11:06)
[2018-09-12] MEDS ORDERED: MIDAZOLAM 2 MG/2 ML VIAL ONE (11:06)
[2018-09-12] MEDS ORDERED: BUPIVACAIN-EPI 0.25%-1:200,000 30 ML VIAL SQ ONE (11:25)
[2018-09-12] MEDS ORDERED: LACTATED RINGERS 1,000 ML IV ONE (11:46)
--- NOTE | 2018-09-12 11:54 | P.OP ---
Date of Procedure: 09/12/18 Preoperative Diagnosis: Acute cholecystitis Postoperative Diagnosis: Acute cholecystitis Procedure(s) Performed: Laparoscopic cholecystectomy Anesthesia: ADARSH Surgeon: Curt Harper Estimated Blood Loss (ml): 5 Pathology: other (Gallbladder) Condition: stable Disposition: PACU Description of Procedure: The patient was placed on the operating table. The patient received a general endotracheal tube anesthesia. The patients abdomen was prepped and draped in the usual sterile fashion. Through an infraumbilical stab incision, the fascia of the anterior abdominal wall was grasped with a pair of Kochers and then the Veress needle was placed in the peritoneal cavity. Position of the Veress needle was confirmed with positive drop test. The abdomen was then insufflated. After adequate insufflation, the 10 mm trocar was placed in the peritoneal cavity. Following this the laparoscope was placed in the peritoneal cavity. The patient was placed in the head-up, right side up position and then a 5 mm trocar was placed in the right lateral and right subcostal position under direct visualization. A 8 mm trocar was placed in the epigastric position. The gallbladder was grasped in the fundus and infundibulum. Traction on the gallbladder was placed in the lateral and the cephalad positions. The triangle of [place] was visualized.. The cystic duct was bluntly dissected until the union of the cystic duct and common bile duct was seen. The cystic duct was then divided and sealed with the Harmonic scissors. A PDS Endoloop was then placed throughout the cystic duct stump. The cystic artery divided and sealed with the Harmonic scissors. The gallbladder was then removed from the liver bed using Harmonic scissors. The gallbladder was then extracted through the epigastric port site. Operative field was checked for any bleeding spots and Harmonic scissors was used to coagulate the liver bed. The abdomen was irrigated. The trocars were removed. The skin was closed using interrupted 3-0 Vicryl suture. Dermabond dressing were applied. The patient tolerated the procedure well.
[2018-09-12] MEDS: HYDROmorphone 1 MG/ML 1 ML SYRINGE IVP ONE ×2 (12:31→12:37)
[2018-09-12] MEDS ORDERED: PHYSOSTIGMINE SALICYLATE 1 MG/ML 2 ML AMP IVP ONE (12:46)
[2018-09-12] MEDS: fentaNYL (PF) 50 MCG/ML 2 ML AMP IVP ONE ×4 (12:48→13:08)
[2018-09-12 12:56] LABS: Glucose,Whole Blood 111 mg/dL (75-99)
[2018-09-12] MEDS: FAMOTIDINE 20 MG/2 ML VIAL IV SCH ×2 (13:54→21:41)
[2018-09-12] MEDS: FLECAINIDE 50 MG TAB PO SCH ×2 (13:55→21:38)
[2018-09-12] MEDS: LISINOPRIL 10 MG TAB PO SCH (14:00)
[2018-09-12] MEDS: HYDROmorphone 1 MG/ML 1 ML SYRINGE IVP PRN ×2 (16:50→22:14)
[2018-09-12 17:10] LABS: Glucose,Whole Blood 158 mg/dL (75-99)
[2018-09-12 20:29] LABS: Glucose,Whole Blood 205 mg/dL (75-99)
[2018-09-12] MEDS: ATORVASTATIN 40 MG TAB PO SCH (21:38)
[2018-09-13] MEDS: LACTATED RINGERS 1,000 ML IV SCH (05:26)
[2018-09-13 07:07] LABS: Glucose,Whole Blood 103 mg/dL (75-99)
[2018-09-13 07:51] VITALS: BP 121/75; PULSE 81; RESP 18; TEMP 97.4
[2018-09-13] MEDS: INSULIN ASPART 100 UNIT/ML 1 ML 10 ML VIAL SQ SCH (07:53)
[2018-09-13] MEDS ORDERED: HYDROcodone/APAP 5-325MG 1 EACH TAB PO PRN (07:54)
[2018-09-13] MEDS: FAMOTIDINE 20 MG/2 ML VIAL IV SCH (07:55)
[2018-09-13] MEDS: PIPERACILLIN-TAZOBACTAM 3.375 GM in SODIUM CHLORIDE 0.9% 100 ML IVPB SCH ×3 (07:56)
--- NOTE | 2018-09-13 08:49 | P.PN ---
Subjective Progress Note Date: 09/13/18 09/11/2018 59-year-old male who presented to the emergency room on 09/10/2018 with a chief complaint of chest discomfort, epigastric pain, and nausea that has been present for over a week. The patient denies shortness of breath, cough , or congestion. He denies fever or chills. Denies dizziness or lightheadedness. Denies constipation or diarrhea. In the emergency room a chest x-ray was completed which was negative for an acute cardiopulmonary process. Previously identified lung nodule in the right lower lobe is again visualized. Thoracic abdominal CT was negative for evidence of thoracic or abdominal aortic dissection. Findings concerning for acute on chronic cholecystitis although there is no enlargement of the common bile duct. Few calcified gallstones are noted. Negative for pulmonary embolism. 8 mm right lower lobe pulmonary nodule. Indeterminate left adrenal gland lesion and right benign adrenal adenoma. Left adrenal gland lesion does not meet criteria for adenoma. Small left internal hernia. Multiple loops of prominent small bowel with mild bowel wall thickening could relate to mild ileus or enteritis but is nonspecific and also could relate to peristalsis. Laboratory data upon admission reveals white count 11.7. Hemoglobin 15.2. Platelet count 280. Sodium 135. Potassium 4.5. BUN 18. Creatinine 1.0. Glucose 154. AST 14. ALT 19. Alkaline phosphatase 167. Troponin negative 1. The patient was admitted to the hospital under the care of Dr. Harper. He was started on Zosyn. Dr. Hale was consulted for medical management. The patient is scheduled for laparoscopic cholecystectomy tomorrow. 09/12/2018 Patient examined at the bedside. Patient is awake and alert. Denies shortness of breath, cough, or congestion. He reports intermittent abdominal pain. He is NPO. Scheduled for laparoscopic cholecystectomy 09/13/2018 Patient examined at the bedside. Patient is sitting up on the side of the bed. Eating breakfast. Denies nausea or vomiting. Denies shortness of breath or chest pain. Laparoscopic incision sites with Dermabond noted. No signs of infection. Patient reports he is passing gas this morning. No bowel movement yet. He reports his pain as 4 out of 10 at this time, which is tolerable for him. Vital signs have been stable. Objective - Vital Signs Vital signs: Vital Signs Temp 97.4 F L 09/13/18 07:50 Pulse 81 09/13/18 07:50 Resp 18 09/13/18 07:50 BP 121/75 09/13/18 07:50 Pulse Ox 97 09/13/18 07:50 Intake & Output 09/12/18 09/13/18 09/13/18 18:59 06:59 18:59 Intake Total 1360 Output Total 25 Balance 1335 Intake: IV 1360 Lactated Ringers 1,000 ml 160 @ 20 mls/hr IV .Q24H [facility] Rx#:[id number] Piperacillin-Tazobactam 3 100 .375 gm In Sodium Chloride 0.9% 100 ml @ 25 mls/hr IVPB Q8HR [facility] Rx# :[id number] Output: Estimated Blood Loss 25 Other: Voiding Method Toilet Toilet # Voids 2 2 # Bowel Movements 0 0 - Exam GENERAL: This is a 67-year-old male in no apparent distress at the time of examination. Pleasant and cooperative. HEENT: Head is atraumatic, normocephalic. Pupils are equal, round, and reactive to light. Sclerae anicteric. Conjunctivae are clear. Mucus membranes of the mouth are moist. Neck is supple. RESPIRATORY: Clear to auscultation. No wheezes, rales, or rhonchi. No use of accessory muscles. Patient maintaining oxygen saturation greater than 92%. CARDIOVASCULAR: Regular rate and rhythm. S1 and S2 noted. GASTROINTESTINAL: Laparoscopic surgical sites with Dermabond noted. No signs of infection. No distention noted. Abdomen soft and round. Bowel sounds auscultated x 4 quadrants. INTEGUMENTARY: No cyanosis. No jaundice. No rashes noted. No cellulitis noted. EXTREMITIES: 2+ peripheral pulses. No evidence of peripheral edema. No calf tenderness noted. NEUROLOGIC: Cranial nerves II-XII intact. PSYCHIATRIC: Awake, alert, and oriented X 3. - Labs CBC & Chem 7: 09/11/18 08:28 09/11/18 08:28 Labs: Abnormal Lab Results - Last 24 Hours (Table) 09/12/18 09/12/18 09/12/18 Range/Units 12:50 17:06 20:28 POC Glucose (mg/dL) 111 H 158 H 205 H (75-99) mg/dL 09/13/18 Range/Units 06:56 POC Glucose (mg/dL) 103 H (75-99) mg/dL Assessment and Plan Plan: ASSESSMENT: Acute cholecystitis, status post laparoscopic cholecystectomy, POD #1 History of paroxysmal atrial fibrillation, status post ablation 2017, on long- term anticoagulation with Eliquis Diabetes mellitus, type II COPD, no evidence of acute exacerbation Hypertension Hyperlipidemia History of melanoma left upper chest with surgical resection History of inguinal hernia repair 2 History of depression Remote history of nicotine dependence, patient quit smoking in 1999 Obesity: BMI 30.7 PLAN: Continue postoperative care per Dr. Harper. Resume Eliquis this afternoon Discontinue IV morphine and Dilaudid Begin [place] 5 mg every 4 hours as needed for pain Activity as tolerated. Encourage ambulation Home meds as appropriate Monitor labs GI prophylaxis: Pepcid 20mg PO q12 hours DVT prophylaxis: Eliquis Monitor vital signs and address as appropriate Further recommendations pending patient's course Patient is cleared for discharge from a medical standpoint when cleared by admitting/attending physician He may follow up with his PCP in 2 weeks and resume previous home medications at discharge Nurse practitioner note has been reviewed by physician. Signing provider agrees with the documented findings, assessment, and plan of care.
[2018-09-13] MEDS ORDERED: FAMOTIDINE 20 MG TAB PO SCH (09:00)
[2018-09-13] MEDS ORDERED: APIXABAN 5 MG TAB PO SCH (09:00)
[2018-09-13] MEDS: glipiZIDE 5 MG TAB PO SCH (09:06)
[2018-09-13] MEDS: FLECAINIDE 50 MG TAB PO SCH (09:07)
[2018-09-13] MEDS: LISINOPRIL 10 MG TAB PO SCH (09:07)
[2018-09-13] MEDS: metFORMIN 500 MG TAB PO SCH (09:07)
--- NOTE | 2018-09-13 10:38 | P.DS ---
Providers Date of admission: 09/10/18 12:12 Expected date of discharge: 09/13/18 Attending physician: Curt Harper Consults: 09/10/18 14:34 Consult Physician Urgent Consulting Provider: Hilton Salazar Consult Reason/Comments: Medical management Do you want consulting provider notified?: Yes Primary care physician: Hilton Salazar [facility] Course: 67-year-old male seen in the emergency room with a chief complaint of right upper quadrant abdominal pain radiating to the mid epigastric area with a nausea sensation intermittent episodes over the last 10 days. Patient stated it hurt taken a deep breath. In the emergency room patient did have a CAT scan thoracic and abdomen and pelvis which showed no evidence of a thoracic or abdominal aortic dissection findings were of concern for acute on chronic cholecystitis. No enlargement of the common bile duct noted. No pulmonary emboli. An 8 mm right lower lobe pulmonary nodule noted. Patient was admitted to the services of the attending. Does have a history of paroxysmal atrial fibrillation on elquis in which the patient had taken on the day of admission. Anticoagulation was held and patient underwent the surgery on September 11. Underwent a laparoscopic cholecystectomy for acute cholecystitis. On the day of discharge patient was up ambulatory on the unit surgical dressing sites dry passing gas tolerating diet pain medication effective for pain control afebrile Impression discharge diagnosis Present on admission mid epigastric pain with a CAT scan of the abdomen pelvis showing no evidence of a pulmonary emboli or no evidence of thoracic abdominal aortic dissection History of an ablation for atrial fibrillation on anticoagulation elquis EKG on admission sinus rhythm History abdominal hernia repair Computed tomography scan abdomen pelvis findings concerning for acute chronic cholecystitis Type 2 diabetes non-insulin Status post laparoscopic cholecystectomy for acute cholecystitis done September 11 The above impression and plan of care have been discussed and directed by signing physician. Giovana Reyes nurse practitioner acting as scribe for signing physician. Patient Condition at Discharge: Stable Plan - Discharge Summary Discharge Rx Participant: Yes New Discharge Prescriptions: New Hydrocodone/Acetaminophen [[place] 5-325] 1 tab PO Q6HR PRN 3 Days #12 tab PRN Reason: Mild To Moderate Pain Apixaban [Eliquis] 5 mg PO BID tab Continue glipiZIDE [Glucotrol] 5 mg PO BID Simvastatin [Zocor] 80 mg PO HS Apixaban [Eliquis] 5 mg PO BID #60 tab metFORMIN HCL 1,000 mg PO BID Lisinopril [Prinivil] 10 mg PO DAILY Flecainide Acetate [Tambocor] 100 mg PO BID Discharge Medication List glipiZIDE [Glucotrol] 5 mg PO BID 05/21/14 [History] Simvastatin [Zocor] 80 mg PO HS 12/28/16 [History] Apixaban [Eliquis] 5 mg PO BID #60 tab 01/05/17 [Rx] metFORMIN HCL 1,000 mg PO BID 02/20/17 [History] Flecainide Acetate [Tambocor] 100 mg PO BID 03/22/18 [History] Lisinopril [Prinivil] 10 mg PO DAILY 03/22/18 [History] Apixaban [Eliquis] 5 mg PO BID tab 09/13/18 [Rx] Hydrocodone/Acetaminophen [[place] 5-325] 1 tab PO Q6HR PRN 3 Days #12 tab [Rx] Follow up Appointment(s)/Referral(s): Hilton Salazar MD [Primary Care Provider] - 2 Weeks Curt Harper MD [STAFF PHYSICIAN] - 1 Week Activity/Diet/Wound Care/Special Instructions: No tub bath for six weeks. Shower daily. No lifting over 10 pounds for the next 2 weeks. To not remove the plastic dressing from surgical site will be removed in the office visit or will fall off on own May use ice packs to surgical site. No driving while taking narcotic for pain. Discharge Disposition: HOME SELF-CARE
== END 2018-09-13 11:13 | disposition home or self-care (01) | DRG 419 ==
LOC: EC 08:37 → 4MS4W 12:12
PROVIDERS: ADMIT Surgery; ATTEND Surgery
PROC: 0FT44ZZ Resection of Gallbladder, Percutaneous Endoscopic Approach (ICD-10-PCS; principal; 2018-09-12 10:55)
DX: K80.12 Calculus of gallbladder with acute and chronic cholecystitis without obstruction (principal); I48.0 Paroxysmal atrial fibrillation; J44.9 Chronic obstructive pulmonary disease, unspecified; D35.00 Benign neoplasm of unspecified adrenal gland; E11.9 Type 2 diabetes mellitus without complications; E66.9 Obesity, unspecified; E78.5 Hyperlipidemia, unspecified; F32.9 Major depressive disorder, single episode, unspecified; I10 Essential (primary) hypertension; I25.2 Old myocardial infarction; R91.1 Solitary pulmonary nodule; K46.9 Unspecified abdominal hernia without obstruction or gangrene; E27.9 Disorder of adrenal gland, unspecified; Z79.899 Other long term (current) drug therapy; Z79.01 Long term (current) use of anticoagulants; Z79.84 Long term (current) use of oral hypoglycemic drugs; Z68.30 Body mass index [BMI] 30.0-30.9, adult; Z85.820 Personal history of malignant melanoma of skin; Z96.1 Presence of intraocular lens; Z98.42 Cataract extraction status, left eye; Z98.41 Cataract extraction status, right eye; Z87.891 Personal history of nicotine dependence; Z88.8 Allergy status to other drugs, medicaments and biological substances; Z87.01 Personal history of pneumonia (recurrent)
CPT/HCPCS: 36415; 71046; 71275; 74174; 80053; 81001; 82150; 82550; 82553; 83036; 83690; 84484; 85025; 85610; 85730; 88304; 93005; 96361; 96365; 99285

== ENCOUNTER → 2018-10-02 | Outpatient (CLI) | payer MEDICARE, OTHER ==
[2018-10-02 15:56] LABS: Anion Gap 7.6 mmol/L (4.00-12.00); Calcium 10.7 mg/dL (8.7-10.3); Carbon Dioxide 29.4 mmol/L (21.6-31.8); Magnesium 1.8 mg/dL (1.5-2.4); Phosphorus 2.4 mg/dL (2.4-5.1)
[2018-10-02 15:59] LABS: Vitamin D 25 Hydroxy 31.5 ng/mL (30.0-100.0)
[2018-10-02 17:37] LABS: Parathyroid Hormone Intact 74.5 pg/mL (14.0-72.0)
== END | disposition home or self-care (01) ==
LOC: LABWHC1 10:57
PROVIDERS: ATTEND Family Medicine
DX: E11.9 Type 2 diabetes mellitus without complications (principal); I10 Essential (primary) hypertension; E21.3 Hyperparathyroidism, unspecified; Z79.899 Other long term (current) drug therapy
CPT/HCPCS: 36415; 80048; 82306; 83735; 83970; 84100

== ENCOUNTER → 2018-11-09 | Outpatient (CLI) | payer MEDICARE, OTHER | END | disposition home or self-care (01) | LOC: LABWHC1 09:06 | PROVIDERS: ATTEND Internal Medicine Cardiovascular Disease | DX: E78.2 Mixed hyperlipidemia (principal) | CPT/HCPCS: 36415; 80061; 84450; 84460 ==

== ENCOUNTER → 2019-03-25 | Outpatient (CLI) | payer MEDICARE ==
--- NOTE | 2019-03-25 15:29 | CT ---
EXAMINATION TYPE: CT chest w con DATE OF EXAM: 03/25/2019 COMPARISON: CT chest September 10, 2018 and older CTs back through February 20, 2017 HISTORY: Lung nodule CT DLP: 756 mGycm. Automated Exposure Control for Dose Reduction was Utilized. TECHNIQUE: CT scan of the thorax is performed following with IV Contrast, patient injected with 80 m L of Isovue 300. FINDINGS: LUNGS: Mild to moderate underlying emphysematous change is redemonstrated. Linear scarring anterior r ight mid to lower lung axial image 32 is again seen. Stable appearing 9 x 8 mm nodule posterior right lower lobe axial image 45. No new nodules or masses. No pleural effusion or pneumothorax. MEDIASTINUM: There are no greater than 1 cm hilar or mediastinal lymph nodes. No cardiomegaly or pe ricardial effusion is seen. There is 4 vessel origin from aortic arch which is normal variant. OTHER: Cholecystectomy clips are noted. Nonspecific nodular thickening to both adrenal glands redemon strated stable from 2017 study, left adrenal gland measures 2.2 x 1.1 cm axial image 61, right adrena l gland measures 1.6 x 1.3 cm image 58. Simple appearing 2.2 cm cyst medially mid to lower pole level left kidney axial image 71 is redemonstrated. IMPRESSION: Stable 8mm right lower lobe nodule. No new nodules or masses. Documentation of over 2 yea r stability suggests benign postinflammatory etiology.
== END ==
LOC: RADCTMAIN 14:12
PROVIDERS: ATTEND Internal Medicine Critical Care Medicine
DX: R91.1 Solitary pulmonary nodule (principal)
CPT/HCPCS: 82565; 84520; 71260; 36415; Q9967

== ENCOUNTER → 2020-06-22 | Outpatient (CLI) | payer MEDICARE ==
[2020-06-22 11:34] LABS: HCT 44.2 % (39.0-53.0); HGB 13.6 gm/dL (13.0-17.5); Hypochromasia Slight; MCH 26.1 pg (25.0-35.0); MCHC 30.7 g/dL (31.0-37.0); MCV 85.3 fL (80.0-100.0); Mean Platelet Volume 7.9; Platelet Count 238 k/uL (150-450); RBC 5.19 m/uL (4.30-5.90); WBC 8.5 k/uL (3.8-10.6)
[2020-06-22 11:58] LABS: Potassium 5.2 mmol/L (3.5-5.1)
== END | disposition home or self-care (01) ==
LOC: LABPAT 09:47
PROVIDERS: ATTEND Internal Medicine Cardiovascular Disease
DX: Z01.818 Encounter for other preprocedural examination (principal); R07.2 Precordial pain
CPT/HCPCS: 36415; 80051; 82565; 84520; 85027

== ENCOUNTER 2020-06-25 06:20 | Day surgery (SDC) | payer MEDICARE, OTHER ==
[2020-06-22 14:01] VITALS: BMI 30.7
[~2020-06-25 06:20] MED LIST changes: +ALPRAZolam 0.25 MG TAB PO PRN; +ALPRAZolam 0.5 MG TAB PO PRN; +ASPIRIN 325 MG TAB PO STA; +ATORVASTATIN 80 MG TAB PO STA; -DEXAMETHASONE SOD PHOSPHATE 10 MG/ML 1 ML VIAL IV ONE; -HEPARIN SODIUM,PORCINE 5,000 UNIT/ML 1 ML VIAL SQ ONE; -HYDROmorphone 1 MG/ML 1 ML SYRINGE IVP PRN; -LACTATED RINGERS 1,000 ML IV SCH; -MIDAZOLAM 2 MG/2 ML VIAL IV PRN; +NITROGLYCERIN SL TABS 0.4 MG TAB SUBLINGUAL PRN; -ONDANSETRON 4 MG/2 ML VIAL IVP ONE; +SODIUM CHLORIDE 0.9% 1,000 ML in EMPTY BAG 1 BAG IV ONE; -ceFAZolin 2 GM in SODIUM CHLORIDE 0.9% 100 ML IVPB ONE
[2020-06-25 07:01] VITALS: RESP 16; TEMP 98
[2020-06-25 07:02] LABS: Glucose,Whole Blood 141 mg/dL (75-99)
[2020-06-25] MEDS ORDERED: SODIUM CHLORIDE 0.9% 1,000 ML IV ONE (07:06)
[2020-06-25] MEDS ORDERED: LIDOCAINE 1% INJ 10MG/ML (20 ML MDV) ONE (07:18)
[2020-06-25] MEDS ORDERED: fentaNYL (PF) 50 MCG/ML 2 ML AMP ONE (07:19)
[2020-06-25] MEDS ORDERED: MIDAZOLAM 2 MG/2 ML VIAL IVP ONE (07:33)
[2020-06-25] MEDS ORDERED: fentaNYL (PF) 50 MCG/ML 2 ML AMP IVP ONE (07:33)
[2020-06-25] MEDS ORDERED: LIDOCAINE 1% INJ 10MG/ML (20 ML MDV) SQ ONE (07:35)
[2020-06-25] MEDS ORDERED: IOPAMIDOL-370 125ML BTL INJ ONE (07:47)
[2020-06-25] MEDS ORDERED: RX INFO: IV CONTRAST WAS GIVEN 1 EACH MISC MISCELLANE PRN (08:32)
[2020-06-25] MEDS ORDERED: SODIUM CHLORIDE 0.9% 1,000 ML IV SCH (08:45)
[2020-06-25 09:18] VITALS: PULSE 66
--- NOTE | 2020-06-25 10:18 | LTR ---
DATE OF SERVICE: 06/25/2020 RE: Frankie Sage Dear Hilton; I performed cardiac catheterization on Frankie Sage when he presented to me with symptoms of unstable angina. I am happy to report to you that he does not have significant obstructive CAD and does not need angioplasty. Thank you for giving us the privilege in participating in the care of this pleasant gentleman. Sincerely, MD OTILIA Lee / WERNER: [id number] /
--- NOTE | 2020-06-25 10:18 | CC ---
CARDIAC CATHETERIZATION REPORT INDICATION: Unstable angina. PROCEDURE NOTE: After obtaining informed consent, left heart catheterization and coronary angiogram were performed via the right femoral artery using standard [place] catheters. Patient tolerated the procedure well without any obvious immediate complications. A femoral angiogram was performed and Angio-Seal will be deployed for hemostasis. Patient received moderate conscious sedation. Total sedation time was 13 minutes. FINDINGS: HEMODYNAMICS: Left ventricular end-diastolic pressure is 8 to 12 mm, there is no significant gradient across the aortic valve. LEFT VENTRICULOGRAM: Left ventriculogram is not performed #3. ANGIOGRAPHIC DATA LEFT MAIN CORONARY ARTERY: Left main coronary artery is a normal-sized vessel and is free of stenosis. Divides into left anterior descending coronary artery and circumflex coronary artery. LAD shows a mild atherosclerotic plaque in its midportion. Circumflex coronary artery and its branches are free of significant disease. Right coronary artery is a large dominant vessel that shows mild nonobstructive disease. CONCLUSION: Mild nonobstructive coronary artery disease involving the LAD and right coronary artery. PLAN: I told the patient that his chest pain is noncardiac in origin, and his management is going to be in the form of risk factor modification, optimal medical therapy. MMODL / IJN: [id number] /
[2020-06-25 12:39] VITALS: BP 111/53
== END 2020-06-25 13:09 | disposition home or self-care (01) ==
LOC: CATHCVL 06:20
PROVIDERS: ATTEND Internal Medicine Cardiovascular Disease
DX: I25.110 Atherosclerotic heart disease of native coronary artery with unstable angina pectoris (principal); I48.0 Paroxysmal atrial fibrillation; R07.2 Precordial pain; I10 Essential (primary) hypertension; E78.2 Mixed hyperlipidemia; E11.9 Type 2 diabetes mellitus without complications; Z72.0 Tobacco use; Z79.01 Long term (current) use of anticoagulants; Z79.84 Long term (current) use of oral hypoglycemic drugs; Z79.899 Other long term (current) drug therapy
CPT/HCPCS: 93458; C1769 ×2; C1760; C1894; J2250; J2001; J3010; Q9967

== ENCOUNTER 2020-09-01 12:52 | Emergency (ER) | payer MEDICARE, OTHER ==
[2020-09-01 13:41] VITALS: BP 132/80; PULSE 70; RESP 20; TEMP 98
--- NOTE | 2020-09-01 14:05 | ED ---
Back Pain HPI - General Chief Complaint: Back Pain/Injury Stated Complaint: Back Pain Time Seen by Provider: 09/01/20 13:55 Source: patient, RN notes reviewed, old records reviewed Limitations: no limitations - History of Present Illness Initial Comments: -year-old male DF for evaluation patient presents today for evaluation of shortness of breath. Patient has no recent injuries. No fevers. Notes any rash. Note for medications injury but he did bend over feel a pulling or worsening pain in his back which began his symptoms and worsening ever since about 3 days now. No history of back injury or pain MD Complaint: back pain -: days(s) Similar Symptoms Previously: No Place: home Radiation: none Severity: moderate Severity scale (1-10): 4 Quality: sharp Consistency: intermittent Improves With: none Worsens With: movement Context: bending Associated Symptoms: denies other symptoms - Related Data Home Medications Medication Instructions Recorded Confirmed glipiZIDE [Glucotrol] 5 mg PO BID 05/21/14 06/25/20 Simvastatin [Zocor] 80 mg PO HS 12/28/16 06/25/20 metFORMIN HCL 1,000 mg PO BID 02/20/17 06/25/20 Flecainide Acetate [Tambocor] 100 mg PO BID 03/22/18 06/25/20 Lisinopril [Prinivil] 20 mg PO QAM 03/22/18 06/25/20 Previous Rx's Medication Instructions Recorded Apixaban [Eliquis] 5 mg PO BID tab 09/13/18 Allergies Allergy/AdvReac Type Severity Reaction Status Date / Time ibuprofen Allergy Anaphylaxis Verified 09/01/20 13:41 naproxen [From Aleve] Allergy Anaphylaxis Verified 09/01/20 13:41 Review of Systems ROS Statement: Those systems with pertinent positive or pertinent negative responses have been documented in the HPI. ROS Other: All systems not noted in ROS Statement are negative. Past Medical History Past Medical History: Atrial Fibrillation, Cancer, COPD, Diabetes Mellitus, Hyperlipidemia, Hypertension, Myocardial Infarction (IL), Pneumonia Additional Past Medical History / Comment(s): Afib but none since ablation, 2003-had chest pain went to hospital in [place] and told he had a slight [place]-no procedure done per pt, NIDDM type II, bronchitis, melanoma removed from L upper chest, Agent orange exposure Last Myocardial Infarction Date:: 2004 History of Any Multi-Drug Resistant Organisms: None Reported Past Surgical History: Cardiac Ablation, Hernia Repair, Orthopedic Surgery Additional Past Surgical History / Comment(s): 02/01/17 cardiac ablation for Afib, HOWIE, L chest melanoma removed, L inguinal hernia surgery x2, L lower leg fracture with hardware (ORIF), L shoulder had nerve/tendon surgery, R wrist fracture with pins, bilateral cataract removals/lens implants. Past Anesthesia/Blood Transfusion Reactions: No Reported Reaction Additional Past Anesthesia/Blood Transfusion Reaction / Comment(s): had hallucinations with anesthesia with 1995 ORIF leg Past Psychological History: Depression, PTSD Smoking Status: Former smoker Past Alcohol Use History: None Reported Past Drug Use History: None Reported - Past Family History Mother History Unknown: Yes Family Medical History: Congestive Heart Failure (CHF) Additional Family Medical History / Comment(s): She is . Father Additional Family Medical History / Comment(s): IN [facility]. General Exam Limitations: no limitations General appearance: alert, in no apparent distress Head exam: Present: atraumatic, normocephalic, normal inspection Eye exam: Present: normal appearance, PERRL, EOMI. Absent: scleral icterus, conjunctival injection, periorbital swelling ENT exam: Present: normal exam, mucous membranes moist Neck exam: Present: normal inspection. Absent: tenderness, meningismus, lymphadenopathy Respiratory exam: Present: normal lung sounds bilaterally. Absent: respiratory distress, wheezes, rales, rhonchi, stridor Cardiovascular Exam: Present: regular rate, normal rhythm, normal heart sounds. Absent: systolic murmur, diastolic murmur, rubs, gallop, clicks GI/Abdominal exam: Present: soft, normal bowel sounds. Absent: distended, tenderness, guarding, rebound, rigid Extremities exam: Present: normal inspection, full ROM, normal capillary refill. Absent: tenderness, pedal edema, joint swelling, calf tenderness Back exam: Present: normal inspection Neurological exam: Present: alert, oriented X3, CN II-XII intact Psychiatric exam: Present: normal affect, normal mood Skin exam: Present: warm, dry, intact, normal color. Absent: rash Course Vital Signs 09/01/20 13:39 Temperature 98.0 F Pulse Rate 70 Respiratory 20 Rate Blood Pressure 132/80 O2 Sat by Pulse 98 Oximetry - Reevaluation(s) Reevaluation #1: 09/01/20 15:41 medical records reviewed Reevaluation #2: 09/01/20 15:41 atient's pain is improved and he can't bear without difficulty Medical Decision Making - Medical Decision Making 69-year-old male with acute back pain strain with bending over. CT is negative here in the emergency department. Patient given pain medications discharged home iAsian encouraged to rest back and use heat in the morning - Radiology Data Radiology results: report reviewed (CT head and pelvis shows no acute disease), image reviewed Disposition Clinical Impression: Mechanical back pain, Strain of lumbar region Disposition: HOME SELF-CARE Condition: Good Instructions (If sedation given, give patient instructions): Acute Low Back Pain (ED) Is patient prescribed a controlled substance at d/c from ED?: No Referrals: Hilton Salazar MD [Primary Care Provider] - 1-2 days
[2020-09-01] MEDS ORDERED: MORPHINE SULFATE 4 MG/ML SYRINGE IM STA (14:18)
--- NOTE | 2020-09-01 15:06 | CT ---
EXAMINATION TYPE: CT abdomen pelvis wo con DATE OF EXAM: 09/01/2020 COMPARISON: CT 09/10/2018 HISTORY: Low back pain CT DLP: 725 mGycm Automated exposure control for dose reduction was used. TECHNIQUE: Helical acquisition of images from the lung bases through the pelvis. FINDINGS: Lack of intravenous contrast could compromise sensitivity. Mild coronary artery calcificati ons noted. Left inguinal hernias shows a stable appearance, some high attenuation present within the hernia appe ars chronic LUNG BASES: There is a lung nodule at the posterior right lung base which is smoothly marginated and measures 1 cm in size and is stable AORTA: No significant abnormality is appreciated. LIVER/GB: The patient is post cholecystectomy.. PANCREAS: No significant interval change is seen. SPLEEN: No significant abnormality is seen. ADRENALS: No significant interval change is seen. KIDNEYS: No significant interval change is seen, left renal cyst is seen at the mid to lower pole med ially measuring 3 cm. REPRODUCTIVE ORGANS: Prostate is enlarged and shows associated calcification. URINARY BLADDER: Concentric wall thickening may be due to chronic bladder outlet obstruction, correl ate to exclude cystitis. BOWEL: There is diverticular change noted in the sigmoid colon. No evident bowel obstruction. Append ix shows no inflammatory change. Some fluid-filled loops of small bowel with some questionable wall t hickening noted. FREE AIR: No Free Air is visible. ASCITES: None visible. PELVIC ADENOPATHY: None visualized. RETROPERITONEAL ADENOPATHY: No Retroperitoneal Adenopathy visible. OSSEOUS STRUCTURES: There are degenerative disc changes noted in the visualized spine, facet arthrop athy noted in the lower lumbar spine. Osteoarthritic change noted in the left hip. IMPRESSION: CORRELATE FOR POSSIBLE ENTERITIS. DEGENERATIVE DISC DISEASE. DIVERTICULOSIS. Noncontrast exam, additi onal findings above.
[2020-09-01] MEDS ORDERED: ACET/COD 300 MG/30 MG STARTER PACK 6 TAB BTL PO STA (15:28)
== END 2020-09-01 15:47 | disposition home or self-care (01) ==
LOC: EC 12:52
DX: S39.012A Strain of muscle, fascia and tendon of lower back, initial encounter (principal); I10 Essential (primary) hypertension; E11.9 Type 2 diabetes mellitus without complications; E78.5 Hyperlipidemia, unspecified; I48.91 Unspecified atrial fibrillation; I25.2 Old myocardial infarction; Z79.84 Long term (current) use of oral hypoglycemic drugs; Z79.899 Other long term (current) drug therapy; Z88.6 Allergy status to analgesic agent; Z87.891 Personal history of nicotine dependence; Z85.820 Personal history of malignant melanoma of skin; X58.XXXA Exposure to other specified factors, initial encounter
CPT/HCPCS: 74176; 99284; 96372; J2270

== ENCOUNTER 2021-07-13 14:00 | Emergency (ER) | payer MEDICARE, OTHER ==
[2021-07-13 14:08] VITALS: BP 123/73; PULSE 100; RESP 18; TEMP 98.3
[2021-07-13] MEDS ORDERED: DIPH,PERTUS(ACELL)TETVAC-LF 0.5 ML VIAL IM ONE (14:30)
[2021-07-13] MEDS ORDERED: BACITRACIN OINT 1 EACH PACKET TOPICAL ONE (14:48)
--- NOTE | 2021-07-13 15:00 | ED ---
General Adult HPI - General Chief complaint: Wound/Laceration Stated complaint: R Arm Lac Time Seen by Provider: 07/13/21 14:29 Source: patient Mode of arrival: ambulatory Limitations: no limitations - History of Present Illness Initial comments: 20-year-old male presents to the emergency room for a chief of abrasion to the right arm. Patient reports that last night he caught his arm on a fence and it cut him. When his daughter came over today she saw that he had cut himself and wanted him to have a tetanus. She does not believe he needs any stit ches.Patient has no other complaints at this time including shortness of breath, chest pain, abdominal pain, nausea or vomiting, headache, or visual changes. - Related Data Home Medications Medication Instructions Recorded Confirmed glipiZIDE [Glucotrol] 5 mg PO BID 05/21/14 06/25/20 Simvastatin [Zocor] 80 mg PO HS 12/28/16 06/25/20 metFORMIN HCL [Glucophage] 1,000 mg PO BID 02/20/17 06/25/20 Flecainide Acetate [Tambocor] 100 mg PO BID 03/22/18 06/25/20 Lisinopril [Prinivil] 20 mg PO QAM 03/22/18 06/25/20 Previous Rx's Medication Instructions Recorded Apixaban [Eliquis] 5 mg PO BID tab 09/13/18 Allergies Allergy/AdvReac Type Severity Reaction Status Date / Time ibuprofen Allergy Anaphylaxis Verified 07/13/21 14:05 naproxen [From Aleve] Allergy Anaphylaxis Verified 07/13/21 14:05 Review of Systems ROS Statement: Those systems with pertinent positive or pertinent negative responses have been documented in the HPI. ROS Other: All systems not noted in ROS Statement are negative. 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 Past Anesthesia/Blood Transfusion Reactions: No Reported Reaction Additional Past Anesthesia/Blood Transfusion Reaction / Comment(s): had hallucinations with anesthesia with 1995 ORIF leg Past Psychological History: Depression, PTSD Smoking Status: Former smoker Past Alcohol Use History: None Reported Past Drug Use History: None Reported - Past Family History Mother History Unknown: Yes Family Medical History: Congestive Heart Failure (CHF) Additional Family Medical History / Comment(s): She is . Father Additional Family Medical History / Comment(s): IN AUTO ACC. General Exam Limitations: no limitations General appearance: alert, in no apparent distress Head exam: Present: atraumatic Eye exam: Present: normal appearance, PERRL, EOMI. Absent: scleral icterus, conjunctival injection ENT exam: Present: normal exam, mucous membranes moist Neck exam: Present: normal inspection, full ROM. Absent: tenderness Respiratory exam: Absent: respiratory distress Extremities exam: Present: other (pt has a superficial abrasion noted over the dorsal aspect of the right forearm. No stitches are required) Course Vital Signs 07/13/21 14:06 Temperature 98.3 F Pulse Rate 100 Respiratory 18 Rate Blood Pressure 123/73 O2 Sat by Pulse 97 Oximetry Medical Decision Making - Medical Decision Making Tetanus was updated. Sutures not required at this time. Antibiotic ointment was applied and wound was wrapped. Care parameters discussed. He'll return here for any worsening symptoms. Disposition Clinical Impression: Abrasion Disposition: HOME SELF-CARE Condition: Good Instructions (If sedation given, give patient instructions): Abrasion (ED) Additional Instructions: Apply antibiotic ointment. Keep wound clean with gentle soap and water. Follow-up with your doctor in one to 2 days. Return to the emergency room for any worsening symptoms. Is patient prescribed a controlled substance at d/c from ED?: No Referrals: Hilton Salazar MD [Primary Care Provider] - 1-2 days Time of Disposition: 15:00
== END 2021-07-13 15:29 | disposition home or self-care (01) ==
LOC: EC 14:00
DX: S50.811A Abrasion of right forearm, initial encounter (principal); E11.36 Type 2 diabetes mellitus with diabetic cataract; I10 Essential (primary) hypertension; I25.2 Old myocardial infarction; E78.5 Hyperlipidemia, unspecified; I48.91 Unspecified atrial fibrillation; J44.9 Chronic obstructive pulmonary disease, unspecified; Z79.01 Long term (current) use of anticoagulants; Z79.84 Long term (current) use of oral hypoglycemic drugs; Z79.899 Other long term (current) drug therapy; Z87.891 Personal history of nicotine dependence; Z88.6 Allergy status to analgesic agent; Z85.820 Personal history of malignant melanoma of skin; Z82.49 Family history of ischemic heart disease and other diseases of the circulatory system; W26.8XXA Contact with other sharp object(s), not elsewhere classified, initial encounter
CPT/HCPCS: 90471; 90715; 99282

== ENCOUNTER → 2024-02-13 | Outpatient (CLI) | payer MEDICARE ==
--- NOTE | 2024-02-13 21:18 | US ---
EXAMINATION TYPE: US kidneys/renal and bladder DATE OF EXAM: 02/13/2024 COMPARISON: CT 09/01/2020 CLINICAL INDICATION: Male, 73 years old with history of N18.9 CHRONIC KIDNEY DISEASE, UNSPECIFIED; Jamel edwards denies any signs or symptoms EXAM MEASUREMENTS: Right Kidney: 9.6 x 4.9 x 4.8 cm Left Kidney: 11.7 x 6.1 x 4.5 cm Post Void Residual Volume: NA mL Right Kidney: wnl Left Kidney: Simple cyst = 3.5 x 2.6 x 2.7 cm Bladder: Not fully distended Bilateral Jets seen: NA Normal Post Void Residual: NA There is no evidence for hydronephrosis at this point in time. No nephrolithiasis is seen IMPRESSION: 1. Simple left renal cyst mid pole left kidney
== END | disposition home or self-care (01) ==
LOC: RADUSWWP 14:52
PROVIDERS: ATTEND Internal Medicine
DX: N28.1 Cyst of kidney, acquired (principal); N18.9 Chronic kidney disease, unspecified
CPT/HCPCS: 76770

== ENCOUNTER → 2024-03-28 | Outpatient (CLI) | payer MEDICARE | END | disposition home or self-care (01) | LOC: LABWHC1 10:42 | PROVIDERS: ATTEND Internal Medicine | DX: E87.5 Hyperkalemia (principal) | CPT/HCPCS: 36415; 84132 ==

== ENCOUNTER → 2024-04-18 | Outpatient (CLI) | payer MEDICARE ==
[2024-04-18 15:31] LABS: ALT 13 U/L (10-49); AST 15 U/L (14-35); Albumin 4.2 g/dL (3.8-4.9); Albumin/Globulin Ratio 1.75 Ratio (1.60-3.17); Alkaline Phosphatase 224 U/L (41-126); BUN/Creat Ratio 15.95 Ratio (12.00-20.00); Basophils # (A) 0.07 X 10*3/uL (0.00-0.10); Basophils % (A) 0.9 %; Blood Urea Nitrogen 33.5 mg/dL (9.0-27.0); Calcium 10.2 mg/dL (8.7-10.3); Chloride 100 mmol/L (96-109); Eosinophils # (A) 0.21 X 10*3/uL (0.04-0.35); Eosinophils % (A) 2.6 %; Globulin 2.4 g/dL (1.6-3.3); Glucose 114 mg/dL (70-110); HCT 38.6 % (39.6-50.0); HGB 11.6 g/dL (13.0-17.0); Lymphocytes # (A) 1.08 X 10*3/uL (0.90-5.00); Lymphocytes % (A) 13.6 %; MCH 26.6 pg (27.0-32.0); MCHC 30.1 g/dL (32.0-37.0); MCV 88.5 FL (80.0-97.0); Mean Platelet Volume 10.8 FL (9.5-12.2); Monocytes # (A) 0.77 X 10*3/uL (0.20-1.00); Monocytes % (A) 9.7 %; NRBC Per 100 WBC 0 X 10*3/uL (0.00-0.01); Neutrophils # (A) 5.78 X 10*3/uL (1.80-7.70); Neutrophils % (A) 72.4 %; Platelet Count 314 X 10*3/uL (140-440); Potassium 5.4 mmol/L (3.5-5.5); RBC 4.36 X 10*6/uL (4.40-5.60); RDW 14.4 % (11.5-14.5); Sodium 138 mmol/L (135-145); Total Bilirubin 0.3 mg/dL (0.3-1.2); Total Protein 6.6 g/dL (6.2-8.2); WBC 7.97 X 10*3/uL (4.50-10.00)
== END | disposition home or self-care (01) ==
LOC: LABWHC1 09:30
PROVIDERS: ATTEND Nurse Practitioner Family
DX: E11.9 Type 2 diabetes mellitus without complications (principal)
CPT/HCPCS: 36415; 80053; 85025

== ENCOUNTER 2024-04-30 18:52 | Emergency (ER) | payer MEDICARE, OTHER ==
[2024-04-30 18:56] VITALS: TEMP 97.2
--- NOTE | 2024-04-30 19:18 | ED ---
General Adult HPI - General Chief complaint: Recheck/Abnormal Lab/Rx Stated complaint: abn labs Time Seen by Provider: 04/30/24 19:00 Source: patient, RN notes reviewed, old records reviewed Mode of arrival: ambulatory Limitations: no limitations - History of Present Illness Initial comments: This is a 73-year-old male who presents to the emergency department stating he had blood drawn this morning alcohol this afternoon that is blood showed a very high potassium level. Patient states this has happened multiple times before but if they take his blood in the run it right away it usually does not happen. Patient denies any difficulty breathing shortness of breath or palpitations. Patient has any other symptoms at this time. - Related Data Home Medications Medication Instructions Recorded Confirmed glipiZIDE [Glucotrol] 5 mg PO BID 05/21/14 06/25/20 Simvastatin [Zocor] 80 mg PO HS 12/28/16 06/25/20 metFORMIN HCL [Glucophage] 1,000 mg PO BID 02/20/17 06/25/20 Flecainide Acetate [Tambocor] 100 mg PO BID 03/22/18 06/25/20 lisinopriL [Prinivil] 20 mg PO QAM 03/22/18 06/25/20 Previous Rx's Medication Instructions Recorded Apixaban [Eliquis] 5 mg PO BID tab 09/13/18 Sodium Zirconium Cyclosilicate 10 gm PO BID #2 04/30/24 [Lokelma] Allergies Allergy/AdvReac Type Severity Reaction Status Date / Time ibuprofen Allergy Anaphylaxis Verified 04/30/24 18:56 naproxen [From Aleve] Allergy Anaphylaxis Verified 04/30/24 18:56 Review of Systems ROS Statement: Those systems with pertinent positive or pertinent negative responses have been documented in the HPI. ROS Other: All systems not noted in ROS Statement are negative. 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 Past Anesthesia/Blood Transfusion Reactions: No Reported Reaction Additional Past Anesthesia/Blood Transfusion Reaction / Comment(s): had hallucinations with anesthesia with 1995 ORIF leg Past Psychological History: Depression, PTSD Smoking Status: Former smoker Past Alcohol Use History: Daily Past Drug Use History: None Reported - Past Family History Mother History Unknown: Yes Family Medical History: Congestive Heart Failure (CHF) Additional Family Medical History / Comment(s): She is . Father Additional Family Medical History / Comment(s): IN AUTO ACC. General Exam - General Exam Comments Initial Comments: GENERAL: Patient is well-developed and well-nourished. Patient is nontoxic and well- hydrated and is in no acute distress. ENT: Neck is soft and supple. No significant lymphadenopathy is noted. Oropharynx is clear. Moist mucous membranes. Neck has full range of motion without eliciting any pain. EYES: The sclera were anicteric and conjunctiva were pink and moist. Extraocular movements were intact and pupils were equal round and reactive to light. Eyelids were unremarkable. SKIN: Skin is clear with no lesions or rashes and otherwise unremarkable. NEUROLOGIC: Patient is alert and oriented x3. Cranial nerves II through XII are grossly intact. Motor and sensory are also intact. Normal speech, volume and content. Symmetrical smile. MUSCULOSKELETAL: Normal extremities with adequate strength and full range of motion. LYMPHATICS: No significant lymphadenopathy is noted PSYCHIATRIC: Normal psychiatric evaluation. Limitations: no limitations Course Vital Signs 04/30/24 18:54 Temperature 97.2 F L Pulse Rate 108 H Respiratory 18 Rate Blood Pressure 171/68 O2 Sat by Pulse 97 Oximetry Medical Decision Making - Medical Decision Making EKG is interpreted by myself. EKG shows a sinus rhythm at 82 bpm ND interval is 182 QRS is 106 QT interval 332 QTc is 370. Patient's EKG shows no ST segment elevation or depression. Was pt. sent in by a medical professional or institution (, PA, ASSISTED LIVING DIRECTOR, urgent care, hospital, or custodial...) When possible be specific @ -No Did you speak to anyone other than the patient for history (EMS, parent, family, police, friend...)? What history was obtained from this source @ -No Did you review nursing and triage notes (agree or disagree)? Why? @ -I reviewed and agree with nursing and triage notes Were old charts reviewed (outside hosp., previous admission, EMS record, old EKG, old radiological studies, urgent care reports/EKG's, custodial records)? Report findings @ -No old charts were reviewed Differential Diagnosis? @ -Normal potassium, hyperkalemia, hemolyzed specimen, this is not an all- inclusive list EKG interpreted by me (3pts min.). @ -As above X-rays interpreted by me (1pt min.). @ -None done CT interpreted by me (1pt min.). @ -None done U/S interpreted by me (1pt. min.). @ -None done What testing was considered but not performed or refused? (CT, X-rays, U/S, labs)? Why? @ -None What meds were considered but not given or refused? Why? @ -None Did you discuss the management of the patient with other professionals (professionals i.e. DrShanice, PA, ASSISTED LIVING DIRECTOR, lab, RT, psych nurse, social work administrator, clinical applications manager, teacher, inspectors and regulatory officers, case aide)? Give summary @ -No Was smoking cessation discussed for >3mins.? @ -No Was critical care preformed (if so, how long)? @ -No Were there social determinants of health that impacted care today? How? (Homelessness, low income, unemployed, alcoholism, drug addiction, transportation, low edu. Level, literacy, decrease access to med. care, skilled nursing, rehab)? @ -No Was there de-escalation of care discussed even if they declined (Discuss DNR or withdrawal of care, Hospice)? DNR status @ -No What co-morbidities impacted this encounter? (DM, HTN, Smoking, COPD, CAD, Cancer, CVA, ARF, Chemo, Hep., AIDS, mental health diagnosis, sleep apnea, morbid obesity)? @ -None Was patient admitted / discharged? Hospital course, mention meds given and route, prescriptions, significant lab abnormalities, going to OR and other pertinent info. @ -Potassium is 5.7. Patient will be given Lokelma and will be sent home with 2 more doses Lokelma Undiagnosed new problem with uncertain prognosis? @ -No Drug Therapy requiring intensive monitoring for toxicity (Heparin, Nitro, Insulin, Cardizem)? @ -No Were any procedures done? @ -No Diagnosis/symptom? @ -Hyperkalemia Acute, or Chronic, or Acute on Chronic? @ -Acute Uncomplicated (without systemic symptoms) or Complicated (systemic symptoms)? @ -Uncomplicated Side effects of treatment? @ -No Exacerbation, Progression, or Severe Exacerbation? @ -No Poses a threat to life or bodily function? How? (Chest pain, [place], SC, pneumonia, PE, COPD, DKA, ARF, appy, cholecystitis, CVA, Diverticulitis, Homicidal, Suicidal, threat to staff... and all critical care pts) @ -No - Lab Data Result diagrams: 04/30/24 19:15 04/30/24 19:15 Lab Results 04/30/24 04/30/24 Range/Units 19:15 19:15 WBC 8.2 (3.8-10.6) k/uL RBC 4.29 L (4.30-5.90) m/uL Hgb 11.5 L (13.0-17.5) gm/dL Hct 37.2 L (39.0-53.0) % MCV 86.6 (80.0-100.0) fL MCH 26.7 (25.0-35.0) pg MCHC 30.8 L (31.0-37.0) g/dL RDW 13.7 (11.5-15.5) % Plt Count 265 (150-450) k/uL MPV 7.9 Neutrophils % 69 % Lymphocytes % 16 % Monocytes % 6 % Eosinophils % 4 % Basophils % 1 % Neutrophils # 5.7 (1.3-7.7) k/uL Lymphocytes # 1.3 (1.0-4.8) k/uL Monocytes # 0.5 (0-1.0) k/uL Eosinophils # 0.4 (0-0.7) k/uL Basophils # 0.1 (0-0.2) k/uL Hypochromasia Slight Sodium 134 L (137-145) mmol/L Potassium 5.7 H (3.5-5.1) mmol/L Chloride 105 (98-107) mmol/L Carbon Dioxide 21 L (22-30) mmol/L Anion Gap 8 mmol/L BUN 34 H (9-20) mg/dL Creatinine 1.94 H (0.66-1.25) mg/dL Est GFR (CKD-EPI)AfAm 38 (>60 ml/min/1.73 sqM) Est GFR (CKD-EPI)NonAf 33 (>60 ml/min/1.73 sqM) Glucose 256 H (74-99) mg/dL Calcium 10.2 (8.4-10.2) mg/dL Total Bilirubin 0.4 (0.2-1.3) mg/dL AST 15 L (17-59) U/L ALT 12 (4-49) U/L Alkaline Phosphatase 222 H (38-126) U/L Total Protein 6.2 L (6.3-8.2) g/dL Albumin 3.8 (3.5-5.0) g/dL Disposition Clinical Impression: Hyperkalemia Disposition: HOME SELF-CARE Condition: Good Prescriptions: Sodium Zirconium Cyclosilicate [Lokelma] 10 gm PO BID #2 Is patient prescribed a controlled substance at d/c from ED?: No Referrals: Brandon Hale Jr, [Primary Care Provider] - 1-2 days Time of Disposition: 19:51
[2024-04-30 19:32] LABS: Basophils # (A) 0.1 k/uL (0-0.2); Basophils % (A) 1 %; Eosinophils # (A) 0.4 k/uL (0-0.7); Eosinophils % (A) 4 %; HCT 37.2 % (39.0-53.0); HGB 11.5 gm/dL (13.0-17.5); Hypochromasia Slight; Lymphocytes # (A) 1.3 k/uL (1.0-4.8); Lymphocytes % (A) 16 %; MCH 26.7 pg (25.0-35.0); MCHC 30.8 g/dL (31.0-37.0); MCV 86.6 fL (80.0-100.0); Mean Platelet Volume 7.9; Monocytes # (A) 0.5 k/uL (0-1.0); Monocytes % (A) 6 %; Neutrophils # (A) 5.7 k/uL (1.3-7.7); Neutrophils % (A) 69 %; Platelet Count 265 k/uL (150-450); RBC 4.29 m/uL (4.30-5.90); RDW 13.7 % (11.5-15.5); WBC 8.2 k/uL (3.8-10.6)
[2024-04-30 19:53] LABS: ALT 12 U/L (4-49); AST 15 U/L (17-59); African American GFR (CKD) 38 (>60 ml/min/1.73 sqM); Albumin 3.8 g/dL (3.5-5.0); Alkaline Phosphatase 222 U/L (38-126); Anion Gap 8 mmol/L; Blood Urea Nitrogen 34 mg/dL (9-20); Calcium 10.2 mg/dL (8.4-10.2); Carbon Dioxide 21 mmol/L (22-30); Chloride 105 mmol/L (98-107); Glucose 256 mg/dL (74-99); Non-African American GFR(CKD) 33 (>60 ml/min/1.73 sqM); Potassium 5.7 mmol/L (3.5-5.1); Sodium 134 mmol/L (137-145); Total Bilirubin 0.4 mg/dL (0.2-1.3); Total Protein 6.2 g/dL (6.3-8.2)
[2024-04-30] MEDS: SODIUM ZIRCONIUM CYCLOSILICATE 10 GM PACKET PO ONE (20:34)
[2024-04-30] MEDS: CALCIUM CHLORIDE 100 MG/ML 10 ML SYRINGE IVP STA (20:34)
[2024-04-30] MEDS: SODIUM ZIRCONIUM CYCLOSILICATE 10 GM PACKET PO PRN (20:37)
[2024-04-30 21:05] VITALS: BP 148/64; PULSE 78; RESP 16
== END 2024-04-30 21:05 | disposition home or self-care (01) ==
LOC: EC 18:52
DX: E87.5 Hyperkalemia (principal); Z88.6 Allergy status to analgesic agent; Z87.891 Personal history of nicotine dependence
CPT/HCPCS: 36415; 80053; 85025; 93005; 99283

== ENCOUNTER → 2024-05-05 | Outpatient (CLI) | payer MEDICARE, OTHER | END | disposition home or self-care (01) | LOC: LABWHC1 09:29 | PROVIDERS: ATTEND Family Medicine | DX: E87.5 Hyperkalemia (principal) | CPT/HCPCS: 36415; 84132 ==

== ENCOUNTER → 2024-07-01 | Outpatient (CLI) | payer MEDICARE, OTHER ==
[2024-07-01 16:23] LABS: Appearance,Urine Clear (Clear); Bilirubin,Urine Negative (Negative); Blood,Urine Negative (Negative); Color,Urine Yellow (Yellow); Ketones,Urine Negative (Negative); Nitrite,Urine Negative (Negative); Specific Gravity,Urine 1.014 (1.001-1.030); Urobilinogen,Urine 0.2 E.U./DL
[2024-07-01 16:48] LABS: HCT 41.1 % (39.6-50.0); HGB 12.3 g/dL (13.0-17.0); MCH 25.9 pg (27.0-32.0); MCHC 29.9 g/dL (32.0-37.0); MCV 86.5 FL (80.0-97.0); Mean Platelet Volume 11.2 FL (9.5-12.2); NRBC Per 100 WBC 0 X 10*3/uL (0.00-0.01); Platelet Count 268 X 10*3/uL (140-440); RBC 4.75 X 10*6/uL (4.40-5.60); RDW 13.8 % (11.5-14.5); WBC 7.92 X 10*3/uL (4.50-10.00)
[2024-07-01 22:24] LABS: Iron 86 UG/DL (65-175); Magnesium 1.7 mg/dL (1.5-2.4); Total Iron Binding Capacity 430 UG/DL (228-460); Uric Acid 9.6 mg/dL (3.7-8.7)
[2024-07-01 22:25] LABS: Ferritin 44.4 ng/mL (22.0-322.0)
[2024-07-01 22:46] LABS: BUN/Creat Ratio 14.72 Ratio (12.00-20.00); Blood Urea Nitrogen 26.5 mg/dL (9.0-27.0); Calcium 10.7 mg/dL (8.7-10.3); Carbon Dioxide 23.7 mmol/L (21.6-31.8); Chloride 98 mmol/L (96-109); Glucose 276 mg/dL (70-110); Potassium 6.1 mmol/L (3.5-5.5); Sodium 136 mmol/L (135-145)
[2024-07-01 23:16] LABS: Microalbumin Creatinine Ratio <19 mg/g Cr (0-30); Urine Creatinine 63.3 mg/dL (39.0-259.0)
== END | disposition home or self-care (01) ==
LOC: LABWHC1 10:09
PROVIDERS: ATTEND Internal Medicine Nephrology
DX: N18.9 Chronic kidney disease, unspecified
CPT/HCPCS: 36415; 80048; 81003; 82043; 82570; 82728; 83540; 83550; 83735; 84550; 85027

== ENCOUNTER 2025-04-24 16:22 | Inpatient (IN) | payer OTHER, MEDICARE ==
--- NOTE | 2025-04-24 16:54 | ED ---
Dizziness HPI - General Source: patient, family Mode of arrival: ambulatory Limitations: no limitations <Jeronimo Alonzo - Last Filed: 04/24/25 17:16> <Radhames Melgar - Last Filed: 04/24/25 19:11> - General Chief Complaint: Dizziness Stated Complaint: High blood sugar Time Seen by Provider: 04/24/25 16:50 - History of Present Illness Initial Comments: 74-year-old male sent by his PCP for elevated potassium. Patient reports that he had an episode of dizziness today while on his lawnmower. He reports that he fell off, he did not hit his head. He does take Eliquis. (Jeronimo Alonzo) Dictation was produced using [employer] dictation software. please excuse any grammatical, word or spelling errors. Chief Complaint: 74-year-old male presents with hyperkalemia History of Present Illness: Patient 74-year-old male with history of kidney disease presents to the ER for hyperkalemia was seen in the office of his primary care doctor yesterday. He had blood work drawn today and is found to have high potassium. Patient otherwise feels fine. Denies any pain complaints. No weakness. The ROS documented in this emergency department record has been reviewed and confirmed by me. Those systems with pertinent positive or negative responses have been documented in the HPI. All other systems are other negative and/or noncontributory. (Radhames Melgar) - Related Data Home Medications Medication Instructions Recorded Confirmed glipiZIDE [Glucotrol] 5 mg PO BID 05/21/14 06/25/20 Simvastatin [Zocor] 80 mg PO HS 12/28/16 06/25/20 metFORMIN HCL [Glucophage] 1,000 mg PO BID 02/20/17 06/25/20 Flecainide Acetate [Tambocor] 100 mg PO BID 03/22/18 06/25/20 lisinopriL [Prinivil] 20 mg PO QAM 03/22/18 06/25/20 Previous Rx's Medication Instructions Recorded Apixaban [Eliquis] 5 mg PO BID tab 09/13/18 Sodium Zirconium Cyclosilicate 10 gm PO BID #2 04/30/24 [Lokelma] Allergies Allergy/AdvReac Type Severity Reaction Status Date / Time ibuprofen Allergy Anaphylaxis Verified 04/30/24 18:56 naproxen [From Aleve] Allergy Anaphylaxis Verified 04/30/24 18:56 Review of Systems ROS Other: All systems not noted in ROS Statement are negative. <Jeronimo Alonzo - Last Filed: 04/24/25 17:16> ROS Other: All systems not noted in ROS Statement are negative. <Radhames Melgar - Last Filed: 04/24/25 19:11> ROS Statement: Those systems with pertinent positive or pertinent negative responses have been documented in the HPI. 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 Past Anesthesia/Blood Transfusion Reactions: No Reported Reaction Additional Past Anesthesia/Blood Transfusion Reaction / Comment(s): had hallucinations with anesthesia with 1996 ORIF leg Past Psychological History: Depression, PTSD Smoking Status: Former smoker Past Alcohol Use History: Daily Past Drug Use History: None Reported - Past Family History Mother History Unknown: Yes Family Medical History: Congestive Heart Failure (CHF) Additional Family Medical History / Comment(s): She is . Father Additional Family Medical History / Comment(s): IN AUTO ACC. <Jeronimo Alonzo - Last Filed: 04/24/25 17:16> General Exam Limitations: no limitations <Jeronimo Alonzo - Last Filed: 04/24/25 17:16> <Radhames Meglar - Last Filed: 04/24/25 19:11> - General Exam Comments Initial Comments: Visual Physical Exam Vital signs reviewed General: Well-appearing, nontoxic, no acute distress. Head: Normocephalic, atraumatic Eyes: PERRLA, EOMI ENT: Airway patent Chest: Nonlabored breathing Skin: No visual rash, normal skin tone Neuro: Alert and oriented 3 Musculoskeletal: No gross abnormalities (Jeronimo Alonzo) PHYSICAL EXAM: General Impression: Alert and oriented x3, not in acute distress HEENT: Normocephalic atraumatic, extra-ocular movements intact, pupils equal and reactive to light bilaterally, mucous membranes moist. Cardiovascular: Heart regular rate and rhythm Chest: Able to complete full sentences, no retractions, no tachypnea Abdomen: abdomen soft, non-tender, non-distended, no organomegaly Musculoskeletal: Pulses present and equal in all extremities, no peripheral edema Motor: no focal deficits noted Neurological: CN II-XII grossly intact, no focal motor or sensory deficits noted Skin: Intact with no visualized rashes Psych: Normal affect and mood (Radhames Melgar) Course Vital Signs 04/24/25 16:49 Temperature 97.8 F Pulse Rate 82 Respiratory 20 Rate Blood Pressure 129/76 O2 Sat by Pulse 96 Oximetry EKG Findings - EKG Comments: EKG Findings:: My EKG interpretation: Ventricular rate 83, sinus rhythm,. 1-21, QRS 114, QTc 377. No NH prolongation, no QTC prolongation, no ST or T-wave germán nges noted. Overall, this EKG is unremarkable <Radhames Melgar - Last Filed: 04/24/25 19:11> Medical Decision Making <Jeronimo Alonzo - Last Filed: 04/24/25 17:16> - Lab Data Result diagrams: 04/24/25 17:22 04/24/25 17:22 <Radhames Melgar - Last Filed: 04/24/25 19:11> - Medical Decision Making I performed the quick note portion of this visit, electronically signed Jeronimo Alonzo PA-C (Jeronimo Alonoz) Was pt. sent in by a medical professional or institution (MALAIKA Reyes, LAUNDR[employer]ORER, urgent care, hospital, or [facility]...) When possible be specific @ -Sent in by primary care doctor Did you speak to anyone other than the patient for history (EMS, parent, family, police, friend...)? What history was obtained from this source @ -See above. Case also discussed with primary care doctor who told us that he was sending patient in from the outpatient clinic Did you review nursing and triage notes (agree or disagree)? Why? @ -I reviewed and agree with nursing and triage notes Were old charts reviewed (outside hosp., previous admission, EMS record, old EKG, old radiological studies, urgent care reports/EKG's, [facility] records)? Report findings @ -No old charts were reviewed Differential Diagnosis (chest pain, altered mental status, abdominal pain women, abdominal pain men, vaginal bleeding, musculoskeletal, weakness, fever, dyspnea, syncope, headache, dizziness, GI bleed, back pain, seizure, CVA, palpatations, mental health)? @ -Hyperkalemia, kidney injury, rhabdomyolysis EKG interpreted by me (3pts min.). @ -See above X-rays interpreted by me (1pt min.). @ -None done CT interpreted by me (1pt min.). @ -None done U/S interpreted by me (1pt. min.). @ -None done What testing was considered but not performed or refused? (CT, X-rays, U/S, labs)? Why? @ -None What meds were considered but not given or refused? Why? @ -None Was smoking cessation discussed for >3mins.? @ -No Were there social determinants of health that impacted care today? How? (Homelessness, low income, unemployed, alcoholism, drug addiction, transportation, low edu. Level, literacy, decrease access to med. care, fpc, rehab)? @ -No Was there de-escalation of care discussed even if they declined (Discuss DNR or withdrawal of care, Hospice)? DNR status @ -No What co-morbidities impacted this encounter? (DM, HTN, Smoking, COPD, CAD, Cancer, CVA, ARF, Chemo, Hep., AIDS, mental health diagnosis, sleep apnea, morbid obesity)? @ -None Was patient admitted / discharged? Hospital course, mention meds given and route, prescriptions, significant lab abnormalities, going to OR and other pertinent info. @ -74-year-old male with hyperkalemia. Vital signs stable. Physical examination is benign. EKG is unremarkable. Laboratory evaluation obtained. Potassium 6.6 secondary to likely kidney issues with creatinine 2.5 BUN of 54. Patient give hyperkalemic cocktail. Will be admitted. Case discussed with h ospitalist for admission Did you discuss the management of the patient with other professionals (pro fessionals i.e. , PA, LAUNDRY LABORER, lab, RT, psych nurse, social media community manager, fundraiser, teacher, adult probation officer, upper caser)? Give summary @ -See above Was critical care preformed (if so, how long)? @ -Yes, 33 minutes for management of life-threatening electrolyte derangement Undiagnosed new problem with uncertain prognosis? @ -No Drug Therapy requiring intensive monitoring for toxicity (Heparin, Nitro, In sulin, Cardizem)? @ -No Were any procedures done? @ -No Diagnosis/symptom? Acute, or Chronic, or Acute on Chronic? Uncomplicated (without systemic symptoms) or Complicated (systemic symptoms)? @ -Hyperkalemia Side effects of treatment? @ -No Exacerbation, Progression, or Severe Exacerbation? @ -No Poses a threat to life or bodily function? How? (Chest pain, [place], [place], pneumonia, PE, COPD, DKA, ARF, appy, cholecystitis, CVA, Diverticulitis, Homicidal, Suicidal, threat to staff... and all critical care pts) @ -yes (Radhames Melgar) - Lab Data Lab Results 04/24/25 04/24/25 04/24/25 Range/Units 17:22 17:22 17:22 WBC 14.86 H (4.50-10.00) 10*3/uL RBC 5.02 (4.40-5.60) 10*6/uL Hgb 13.5 (13.0-17.0) g/dL Hct 41.9 (39.6-50.0) % MCV 83.5 (80.0-97.0) fL MCH 26.9 L (27.0-32.0) pg MCHC 32.2 (32.0-37.0) g/dL Plt Count 269 (140-440) 10*3/uL MPV 10.2 (9.5-12.2) fL Immature Gran % (Auto) 0.6 % Neutrophils % 86.3 % Lymphocytes % 6.9 % Monocytes % 5.2 % Eosinophils % 0.5 % Basophils % 0.5 % Immature Gran # 0.09 H (0.00-0.04) 10*3/uL Neutrophils # 12.81 H (1.80-7.70) 10*3/uL Lymphocytes # 1.02 (0.90-5.00) 10*3/uL Monocytes # 0.78 (0.20-1.00) 10*3/uL Eosinophils # 0.08 (0.04-0.35) 10*3/uL Basophils # 0.08 (0.00-0.10) 10*3/uL Sodium 131 L (137-145) mmol/L Potassium 6.6 H* (3.5-5.1) mmol/L Chloride 99 (98-107) mmol/L Carbon Dioxide 21 L (22-30) mmol/L Anion Gap 11 mmol/L BUN 54 H (9-20) mg/dL Creatinine 2.55 H (0.66-1.25) mg/dL Est GFR (CKD-EPI)AfAm 27 (>60 ml/min/1.73 sqM) Est GFR (CKD-EPI)NonAf 24 (>60 ml/min/1.73 sqM) Glucose 258 H (74-99) mg/dL POC Glucose (mg/dL) (70-110) mg/dL POC Glu Spindraw Operator ID Plasma Lactic Acid Lionel 1.5 (0.7-2.0) mmol/L Calcium 10.2 (8.4-10.2) mg/dL Total Bilirubin 0.7 (0.2-1.3) mg/dL AST 27 (17-59) U/L ALT 42 (4-49) U/L Alkaline Phosphatase 191 H (38-126) U/L Troponin I (0.000-0.034) ng/mL Total Protein 7.0 (6.3-8.2) g/dL Albumin 4.3 (3.5-5.0) g/dL 04/24/25 04/24/25 Range/Units 17:22 18:38 WBC (4.50-10.00) 10*3/uL RBC (4.40-5.60) 10*6/uL Hgb (13.0-17.0) g/dL Hct (39.6-50.0) % MCV (80.0-97.0) fL MCH (27.0-32.0) pg MCHC (32.0-37.0) g/dL Plt Count (140-440) 10*3/uL MPV (9.5-12.2) fL Immature Gran % (Auto) % Neutrophils % % Lymphocytes % % Monocytes % % Eosinophils % % Basophils % % Immature Gran # (0.00-0.04) 10*3/uL Neutrophils # (1.80-7.70) 10*3/uL Lymphocytes # (0.90-5.00) 10*3/uL Monocytes # (0.20-1.00) 10*3/uL Eosinophils # (0.04-0.35) 10*3/uL Basophils # (0.00-0.10) 10*3/uL Sodium (137-145) mmol/L Potassium (3.5-5.1) mmol/L Chloride (98-107) mmol/L Carbon Dioxide (22-30) mmol/L Anion Gap mmol/L BUN (9-20) mg/dL Creatinine (0.66-1.25) mg/dL Est GFR (CKD-EPI)AfAm (>60 ml/min/1.73 sqM) Est GFR (CKD-EPI)NonAf (>60 ml/min/1.73 sqM) Glucose (74-99) mg/dL POC Glucose (mg/dL) 175 H (70-110) mg/dL POC Glu Spindraw Operator ID Fei Manzano Plasma Lactic Acid Lionel (0.7-2.0) mmol/L Calcium (8.4-10.2) mg/dL Total Bilirubin (0.2-1.3) mg/dL AST (17-59) U/L ALT (4-49) U/L Alkaline Phosphatase (38-126) U/L Troponin I <0.012 (0.000-0.034) ng/mL Total Protein (6.3-8.2) g/dL Albumin (3.5-5.0) g/dL Disposition <Jeronimo Alonzo - Last Filed: 04/24/25 17:16> Decision Time: 19:11 <Radhames Melgar - Last Filed: 04/24/25 19:11> Clinical Impression: Hyperkalemia Disposition: ADMITTED IP TO THIS [facility] Condition: Critical Referrals: Hilton Salazar MD [Primary Care Provider] - 1-2 days
[2025-04-24 17:26] LABS: Basophils # (A) 0.08 10*3/uL (0.00-0.10); Basophils % (A) 0.5 %; Eosinophils # (A) 0.08 10*3/uL (0.04-0.35); Eosinophils % (A) 0.5 %; HCT 41.9 % (39.6-50.0); HGB 13.5 g/dL (13.0-17.0); Lymphocytes # (A) 1.02 10*3/uL (0.90-5.00); Lymphocytes % (A) 6.9 %; MCH 26.9 pg (27.0-32.0); MCHC 32.2 g/dL (32.0-37.0); MCV 83.5 fL (80.0-97.0); Mean Platelet Volume 10.2 fL (9.5-12.2); Monocytes # (A) 0.78 10*3/uL (0.20-1.00); Monocytes % (A) 5.2 %; Neutrophils # (A) 12.81 10*3/uL (1.80-7.70); Neutrophils % (A) 86.3 %; Platelet Count 269 10*3/uL (140-440); RBC 5.02 10*6/uL (4.40-5.60); WBC 14.86 10*3/uL (4.50-10.00)
[2025-04-24 17:54] LABS: ALT 42 U/L (4-49); African American GFR (CKD) 27 (>60 ml/min/1.73 sqM); Albumin 4.3 g/dL (3.5-5.0); Anion Gap 11 mmol/L; Blood Urea Nitrogen 54 mg/dL (9-20); Calcium 10.2 mg/dL (8.4-10.2); Carbon Dioxide 21 mmol/L (22-30); Chloride 99 mmol/L (98-107); Glucose 258 mg/dL (74-99); Non-African American GFR(CKD) 24 (>60 ml/min/1.73 sqM); Sodium 131 mmol/L (137-145); Total Bilirubin 0.7 mg/dL (0.2-1.3)
[2025-04-24 18:06] LABS: AST 27 U/L (17-59); Alkaline Phosphatase 191 U/L (38-126)
[2025-04-24 18:07] LABS: Potassium 6.6 mmol/L (3.5-5.1)
[2025-04-24] MEDS: SODIUM ZIRCONIUM CYCLOSILICATE 10 GM PACKET PO ONE (18:37)
[2025-04-24] MEDS: CALCIUM GLUCONATE IN NACL 1 GM in SALINE 1 100ML.BAG IVPB ONE (18:37)
[2025-04-24] MEDS: DEXTROSE 50% SYRINGE 50 ML IVP ONE (18:38)
[2025-04-24] MEDS: INSULIN REGULAR 100 UNIT/ML VIAL (IV) IV ONE (18:38)
[2025-04-24 18:40] LABS: Glucose,Whole Blood 175 mg/dL (70-110)
--- NOTE | 2025-04-24 18:42 | CT ---
EXAMINATION TYPE: CT brain cspine wo con DATE OF EXAM: 04/24/2025 6:09 PM COMPARISON: Previous CT study 03/22/2018. CLINICAL INDICATION: Male, 74 years old with history of fall; fall, probable syncopeal fall TECHNIQUE: Brain: Multiple axial CT images of the brain were obtained without IV contrast. Cspine: Axial CT images from the skull base to the inferior aspect of T2 we obtained without intraven ous contrast. Coronal and sagittal reformatted images were also reviewed. . CT DLP: 1437.6 mGycm, Automated exposure control for dose reduction was used. FINDINGS: Brain: Extra-axial spaces: No abnormal extra-axial fluid collections. Ventricular system: Dilatation in proportion to cerebral atrophy. Cerebral parenchyma: No acute intraparenchymal hemorrhage or mass effect. The lange-white junction is well differentiated. Scattered hypoattenuating areas are seen within the white matter. Cerebellum: Unremarkable. Mass effect: No evidence of midline shift. Intracranial vasculature: unremarkable Soft tissues: Normal. Calvarium/osseous structures: No depressed skull fracture. Paranasal sinuses and mastoid air cells: Clear. Visualized orbits: Orbital contents are intact. Cervical spine: Fracture: None. Osseous structures: Multilevel degenerative disc disease changes with endplate spurring and disc oste ophyte complex's. Vertebral alignment: Straightening of the normal cervical spine lordotic curvature. Minimal anterolis thesis of C4 on C5. Spinal canal/Neural Foramina: Multilevel facet arthropathy and uncovertebral hypertrophy cause varyin g degrees of multilevel neural foraminal narrowing. No definite high-grade spinal canal stenosis alth ough spinal canal evaluation is limited due to streak artifact. Neck soft tissues: Prevertebral soft tissues are within normal limits. Other: The airway is patent. The lung apices are clear. IMPRESSION: 1. No acute intracranial process. 2. No acute fracture or traumatic subluxation of the cervical spine. [facility], , 04/24/2025 6:40 PM
[2025-04-24] MEDS ORDERED: NALOXONE 0.4 MG/ML 1 ML VIAL IV PRN (19:09)
[2025-04-24] MEDS: SODIUM CHLORIDE 0.9% 1,000 ML IV STA (20:16)
[2025-04-24] MEDS: ALBUTEROL NEB (CONC) 2.5 MG/0.5 ML INHALATION ONE (20:30)
[2025-04-24] MEDS: SODIUM CHLORIDE 0.9% 1,000 ML IV SCH (22:09)
[2025-04-24 23:11] LABS: African American GFR (CKD) 29 (>60 ml/min/1.73 sqM); Anion Gap 7 mmol/L; Blood Urea Nitrogen 51 mg/dL (9-20); Calcium 9.4 mg/dL (8.4-10.2); Carbon Dioxide 20 mmol/L (22-30); Chloride 104 mmol/L (98-107); Glucose 140 mg/dL (74-99); Non-African American GFR(CKD) 25 (>60 ml/min/1.73 sqM); Potassium 5.2 mmol/L (3.5-5.1); Sodium 131 mmol/L (137-145)
[2025-04-25 06:23] LABS: African American GFR (CKD) 31 (>60 ml/min/1.73 sqM); Anion Gap 8 mmol/L; Blood Urea Nitrogen 48 mg/dL (9-20); Calcium 9.5 mg/dL (8.4-10.2); Carbon Dioxide 22 mmol/L (22-30); Chloride 104 mmol/L (98-107); Glucose 113 mg/dL (74-99); Non-African American GFR(CKD) 27 (>60 ml/min/1.73 sqM); Potassium 5.9 mmol/L (3.5-5.1); Sodium 134 mmol/L (137-145)
--- NOTE | 2025-04-25 11:20 | P.HPIM ---
History of Present Illness H&P Date: 04/25/25 Chief Complaint: Hypernatremia Was recently seen in the office labs were procured recent potassium was 6.6 called patient at home and suggested he come to the emergency room at [facility], patient awake alert oriented x 3 vital signs were stable patient is afebrile repeat potassium was again 6.6 third potassium was 5.9 Review of Systems Constitutional: Reports weakness Ears, nose, mouth and throat: Reports as per HPI Cardiovascular: Reports irregular heart beat (Flattened P waves with peaked T waves) Respiratory: Reports as per HPI Gastrointestinal: Reports as per HPI Genitourinary: Reports as per HPI Musculoskeletal: Reports as per HPI Neurological: Reports as per HPI Psychiatric: Reports as per HPI Endocrine: Reports as per HPI Past Medical History Past Medical History: Atrial Fibrillation, Cancer, COPD, Diabetes Mellitus, Hyperlipidemia, Hypertension, Myocardial Infarction ([place]), Pneumonia Additional Past Medical History / Comment(s): Afib but none since ablation, 2003-had chest pain went to hospital in [place] and told he had a slight [place]-no procedure done per pt, NIDDM type II, bronchitis, 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 Past Anesthesia/Blood Transfusion Reactions: No Reported Reaction Additional Past Anesthesia/Blood Transfusion Reaction / Comment(s): had hallucinations with anesthesia with 1995 ORIF leg Past Psychological History: Depression, PTSD Smoking Status: Former smoker Past Alcohol Use History: Daily Past Drug Use History: None Reported - Past Family History Mother History Unknown: Yes Family Medical History: Congestive Heart Failure (CHF) Additional Family Medical History / Comment(s): She is . Father Additional Family Medical History / Comment(s): IN AUTO ACC. Medications and Allergies Home Medications Medication Instructions Recorded Confirmed Type RX: glipiZIDE [Glucotrol] 5 mg PO AC-BID 05/21/14 04/24/25 History RX: Simvastatin [Zocor] 40 mg PO HS 12/28/16 04/24/25 History RX: metFORMIN HCL [Glucophage] 1,000 mg PO DAILY 02/20/17 04/24/25 History RX: Flecainide Acetate [Tambocor] 100 mg PO BID 03/22/18 04/24/25 History RX: Apixaban [Eliquis] 5 mg PO BID tab 09/13/18 04/24/25 Rx Empagliflozin [Jardiance] 10 mg PO DAILY 04/24/25 04/24/25 History lisinopriL [Zestril] 20 mg PO DAILY 04/24/25 04/24/25 History Allergies Allergy/AdvReac Type Severity Reaction Status Date / Time ibuprofen Allergy Anaphylaxis Verified 04/24/25 20:14 naproxen [From Aleve] Allergy Anaphylaxis Verified 04/24/25 20:14 Physical Exam Osteopathic Statement: *. No significant issues noted on an osteopathic structural exam other than those noted in the History and Physical/Consult. Vitals: Vital Signs Temp Pulse Resp BP Pulse Ox 04/25/25 07:31 64 18 115/63 98 04/25/25 06:54 98.1 F 75 18 115/60 96 04/25/25 03:42 65 16 125/65 95 04/25/25 00:24 98 16 04/24/25 20:42 80 04/24/25 20:32 75 04/24/25 20:16 84 18 139/83 97 04/24/25 16:49 97.8 F 82 20 129/76 96 Intake and Output 04/24/25 04/25/25 04/25/25 22:59 06:59 14:59 Other: Weight 92.986 kg General: [Patient awake, alert and oriented times 3. Patient in no acute distress.] HEENT: [PERRL. EOMI. No pharyngeal erythema or exudate.] Neck: [No adenopathy.] Cardiac: [Heart regular in rate and rhythm. No S3. No S4. No clicks, rubs. No murmur.] Lungs: [Clear to auscultation bilaterally.] Abdomen: [No mass. No organomegaly. Bowel sounds presnt and normoactive in all 4 quadrants.] Extremes: [No edema no cyanosis no claudication normal pulses] : Normal male genitalia Musculoskeletal: [No joint erythema, edema or tenderness.] Skin: [No rash.] Neurologic: [No lateralizing deficits. CN II - XII grossly intact.] Lymphatic: [No adenopathy.] Results CBC & Chem 7: 04/24/25 17:22 04/25/25 05:06 Labs: Abnormal Lab Results - Last 24 Hours (Table) 04/24/25 04/24/25 04/24/25 Range/Units 17:22 17:22 18:38 WBC 14.86 H (4.50-10.00) 10*3/uL MCH 26.9 L (27.0-32.0) pg Immature Gran # 0.09 H (0.00-0.04) 10*3/uL Neutrophils # 12.81 H (1.80-7.70) 10*3/uL Sodium 131 L (137-145) mmol/L Potassium 6.6 H* (3.5-5.1) mmol/L Carbon Dioxide 21 L (22-30) mmol/L BUN 54 H (9-20) mg/dL Creatinine 2.55 H (0.66-1.25) mg/dL Glucose 258 H (74-99) mg/dL POC Glucose (mg/dL) 175 H (70-110) mg/dL Alkaline Phosphatase 191 H (38-126) U/L 04/24/25 04/25/25 Range/Units 22:15 05:06 WBC (4.50-10.00) 10*3/uL MCH (27.0-32.0) pg Immature Gran # (0.00-0.04) 10*3/uL Neutrophils # (1.80-7.70) 10*3/uL Sodium 131 L 134 L (137-145) mmol/L Potassium 5.2 H 5.9 H (3.5-5.1) mmol/L Carbon Dioxide 20 L (22-30) mmol/L BUN 51 H 48 H (9-20) mg/dL Creatinine 2.44 H 2.30 H (0.66-1.25) mg/dL Glucose 140 H 113 H (74-99) mg/dL POC Glucose (mg/dL) (70-110) mg/dL Alkaline Phosphatase (38-126) U/L Thrombosis Risk Factor Assmnt - DVT/VTE Prophylaxis DVT/VTE Prophylaxis: Pharmacologic Prophylaxis ordered (Patient is currently taking apixaban) Assessment and Plan (1) Hyperkalemia Current Visit: Yes Status: Acute Code(s): E87.5 - HYPERKALEMIA SNOMED Code(s): 12077721 (2) Acute cholecystitis Current Visit: No Status: Acute Code(s): K81.0 - ACUTE CHOLECYSTITIS SNOMED Code(s): 61354547 Plan: Hyperkalemia Abdominal pain Repeat labs Time with Patient: Greater than 30
--- NOTE | 2025-04-25 12:13 | P.NPCON ---
History of Present Illness - Reason for Consult chronic renal failure - History of Present Illness patient is a 74-year-old male with history of chronic kidney disease stage IIIB to IV with baseline creatinine about 1.7-1.8 mg/dL. He is admitted to the hospital with a history of fall. Patient did complain of lightheadedness and dizziness. Blood pressure was not documented to be low No chest pains Serum potassium noted to be 6.6admission with creatinine of 2.5. Currently maintained on IV fluids and serum creatinine has decreased to 2.3 and repeat potassium was again elevated at 5.9. 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 Past Anesthesia/Blood Transfusion Reactions: No Reported Reaction Additional Past Anesthesia/Blood Transfusion Reaction / Comment(s): had hallucinations with anesthesia with 1996 ORIF leg Past Psychological History: Depression, PTSD Smoking Status: Former smoker Past Alcohol Use History: Daily Past Drug Use History: None Reported - Past Family History Mother History Unknown: Yes Family Medical History: Congestive Heart Failure (CHF) Additional Family Medical History / Comment(s): She is . Father Additional Family Medical History / Comment(s): IN AUTO ACC. Medications and Allergies Home Medications Medication Instructions Recorded Confirmed Type glipiZIDE [Glucotrol] 5 mg PO AC-BID 05/21/14 04/24/25 History Simvastatin [Zocor] 40 mg PO HS 12/28/16 04/24/25 History metFORMIN HCL [Glucophage] 1,000 mg PO DAILY 02/20/17 04/24/25 History Flecainide Acetate [Tambocor] 100 mg PO BID 03/22/18 04/24/25 History Apixaban [Eliquis] 5 mg PO BID tab 09/13/18 04/24/25 Rx Empagliflozin [Jardiance] 10 mg PO DAILY 04/24/25 04/24/25 History lisinopriL [Zestril] 20 mg PO DAILY 04/24/25 04/24/25 History Allergies Allergy/AdvReac Type Severity Reaction Status Date / Time ibuprofen Allergy Anaphylaxis Verified 04/24/25 20:14 naproxen [From Aleve] Allergy Anaphylaxis Verified 04/24/25 20:14 Physical Exam Vitals: Vital Signs Temp Pulse Resp BP Pulse Ox 04/25/25 12:00 54 L 18 126/72 99 04/25/25 07:31 64 18 115/63 98 04/25/25 06:54 98.1 F 75 18 115/60 96 04/25/25 03:42 65 16 125/65 95 04/25/25 00:24 98 16 04/24/25 20:42 80 04/24/25 20:32 75 04/24/25 20:16 84 18 139/83 97 04/24/25 16:49 97.8 F 82 20 129/76 96 Intake and Output 04/24/25 04/25/25 04/25/25 22:59 06:59 14:59 Other: Weight 92.986 kg patient is awake, comfortable, no acute distress Alert oriented 3 examination of the heart S1 and S2 Examination of the lungs bilateral breath sounds are heard Abdomen is soft nontender Examination of lower extremity shows no significant edema Results - Lab Results Most recent lab results Calcium 9.5 mg/dL (8.4-10.2) 04/25/25 05:06 04/24/25 17:22 04/25/25 05:06 Assessment and Plan Assessment: 1. Acute kidney injury likely related to some degree of volume depletion, rule out urine retention.check UA 2. CK D stage IV with baseline creatinine 1.7-1.8 mg/dLsecondary to nephrosclerosis 3. Hyperkalemia associated with acute kidney injury, rule out urine retention 4. Status post fall Plan: add IV fluids Check bladder scan Continue to hold ELLA inhibitor's repeat [facility] Repeat labs in a.m. Check UA Thank you for the consultation. We will continue to follow the patient with you during his hospitalization.
[2025-04-25 16:39] LABS: Glucose,Whole Blood 172 mg/dL (70-110)
[2025-04-25] MEDS: glipiZIDE 5 MG TAB PO SCH (16:53)
[2025-04-25] MEDS: ATORVASTATIN 20 MG TAB PO SCH (19:54)
[2025-04-25] MEDS: FLECAINIDE 50 MG TAB PO SCH (19:54)
[2025-04-25] MEDS: APIXABAN 5 MG TAB PO SCH (19:54)
[2025-04-25] MEDS: SODIUM POLYSTYRENE SULFONATE 15 GM/60 ML BOTTLE PO STA (19:55)
[2025-04-25 20:20] LABS: Glucose,Whole Blood 224 mg/dL (70-110)
[2025-04-26 03:35] VITALS: TEMP 97.1
[2025-04-26 06:24] LABS: Glucose,Whole Blood 139 mg/dL (70-110)
[2025-04-26] MEDS: metFORMIN 500 MG TAB PO SCH (06:31)
[2025-04-26 07:52] LABS: African American GFR (CKD) 32 (>60 ml/min/1.73 sqM); Anion Gap 10 mmol/L; Blood Urea Nitrogen 45 mg/dL (9-20); Calcium 9.2 mg/dL (8.4-10.2); Carbon Dioxide 20 mmol/L (22-30); Chloride 103 mmol/L (98-107); Glucose 143 mg/dL (74-99); Non-African American GFR(CKD) 27 (>60 ml/min/1.73 sqM); Potassium 5.2 mmol/L (3.5-5.1); Sodium 133 mmol/L (137-145)
[2025-04-26] MEDS: DAPAGLIFLOZIN PROPANEDIOL 5 MG TABLET PO SCH (07:57)
[2025-04-26 07:59] VITALS: BP 122/66; PULSE 89; RESP 16
[2025-04-26] MEDS ORDERED: lisinopriL 20 MG TAB PO SCH (09:00)
--- NOTE | 2025-04-26 10:19 | P.PN ---
Subjective Progress Note Date: 04/26/25 Principal diagnosis: Recent fall with hyperkalemia Patient is awake alert vital signs are stable patient is afebrile, current potassium is 5.2 which is significantly improved from admission, creatinine is also improved, patient has known renal insufficiency is currently making urine otherwise overall improvement Objective - Vital Signs Vital signs: Vital Signs Temp 97.1 F L 04/26/25 03:33 Pulse 89 04/26/25 07:58 Resp 16 04/26/25 07:58 BP 122/66 04/26/25 07:58 Pulse Ox 98 04/26/25 07:58 FiO2 Intake & Output 04/25/25 04/26/25 04/26/25 18:59 06:59 18:59 Intake Total 240 10 250 Output Total 1500 Balance 240 -1490 250 Weight 92.986 kg 90.6 kg Intake: IV 10 10 Invasive Line 2 10 10 Oral 240 240 Output: Urine 1500 Other: Voiding Method Toilet Toilet Toilet Urinal # Voids 3 # Bowel Movements 1 - Exam General: [Patient awake, alert and oriented times 3. Patient in no acute distress.] HEENT: [PERRL. EOMI. No pharyngeal erythema or exudate.] Neck: [No adenopathy.] Cardiac: [Heart regular in rate and rhythm. No S3. No S4. No clicks, rubs. No murmur.] Lungs: [Clear to auscultation bilaterally.] Abdomen: [No mass. No organomegaly. Bowel sounds presnt and normoactive in all 4 quadrants.] Extremes: [No edema no cyanosis no claudication normal pulses] : Normal male genitalia Musculoskeletal: [No joint erythema, edema or tenderness.] Skin: [No rash.] Neurologic: [No lateralizing deficits. CN II - XII grossly intact.] Lymphatic: [No adenopathy.] - Labs CBC & Chem 7: 04/24/25 17:22 04/26/25 06:26 Labs: Abnormal Lab Results - Last 24 Hours (Table) 04/25/25 04/25/25 04/26/25 Range/Units 16:36 20:18 06:22 Sodium (137-145) mmol/L Potassium (3.5-5.1) mmol/L Carbon Dioxide (22-30) mmol/L BUN (9-20) mg/dL Creatinine (0.66-1.25) mg/dL Glucose (74-99) mg/dL POC Glucose (mg/dL) 172 H 224 H 139 H (70-110) mg/dL 04/26/25 Range/Units 06:26 Sodium 133 L (137-145) mmol/L Potassium 5.2 H (3.5-5.1) mmol/L Carbon Dioxide 20 L (22-30) mmol/L BUN 45 H (9-20) mg/dL Creatinine 2.26 H (0.66-1.25) mg/dL Glucose 143 H (74-99) mg/dL POC Glucose (mg/dL) (70-110) mg/dL Assessment and Plan (1) Hyperkalemia Current Visit: Yes Status: Acute Code(s): E87.5 - HYPERKALEMIA SNOMED Code(s): 98469160 (2) Acute cholecystitis Current Visit: No Status: Acute Code(s): K81.0 - ACUTE CHOLECYSTITIS SNOMED Code(s): 07505767 (3) Acute kidney injury Narrative/Plan: Recent acute kidney injury demonstrating improvement Current Visit: Yes Status: Acute Code(s): N17.9 - ACUTE KIDNEY FAILURE, UNSPECIFIED SNOMED Code(s): 58225024 Plan: Hyperkalemia Abdominal pain Repeat labs Significant improvement noted in renal failure Will continue to follow acute/chronic cholecystitis as outpatient consider surgical referral and follow-up Time with Patient: Greater than 30
--- NOTE | 2025-04-26 10:38 | P.DS ---
Providers Date of admission: 04/24/25 19:09 Expected date of discharge: 04/26/25 Attending physician: Brandon Hale Consults: 04/24/25 18:14 Consult Physician Routine Consulting Provider: Jolynn Barahona Consult Reason/Comments: Hyperkalemia Do you want consulting provider notified?: Yes Primary care physician: Hilton Salazar - Discharge Diagnosis(es) (1) Hyperkalemia Current Visit: Yes Status: Acute (2) Acute cholecystitis Current Visit: No Status: Acute (3) Acute kidney injury Current Visit: Yes Status: Acute Hospital Course: See note Patient Condition at Discharge: Critical Plan - Discharge Summary Discharge Rx Participant: No New Discharge Prescriptions: No Action glipiZIDE [Glucotrol] 5 mg PO AC-BID Simvastatin [Zocor] 40 mg PO HS metFORMIN HCL [Glucophage] 1,000 mg PO DAILY Flecainide Acetate [Tambocor] 100 mg PO BID Apixaban [Eliquis] 5 mg PO BID tab Empagliflozin [Jardiance] 10 mg PO DAILY Discharge Medication List glipiZIDE [Glucotrol] 5 mg PO AC-BID 05/21/14 [History] Simvastatin [Zocor] 40 mg PO HS 12/28/16 [History] metFORMIN HCL [Glucophage] 1,000 mg PO DAILY 02/20/17 [History] Flecainide Acetate [Tambocor] 100 mg PO BID 03/22/18 [History] Apixaban [Eliquis] 5 mg PO BID tab 09/13/18 [Rx] Empagliflozin [Jardiance] 10 mg PO DAILY 04/24/25 [History] Follow up Appointment(s)/Referral(s): Hilton Salazar MD [Primary Care Provider] - 1-2 days Discharge Disposition: HOME SELF-CARE
--- NOTE | 2025-04-26 21:42 | P.PN ---
Subjective Patient is seen for f/u for CKD and LAURA. Feels well. No complaints. Potassium 5.2, Cr 2.2 Off of ELLA/i Objective - Vital Signs Vital signs: Vital Signs Temp 97.1 F L 04/26/25 03:33 Pulse 89 04/26/25 07:58 Resp 16 04/26/25 07:58 BP 122/66 04/26/25 07:58 Pulse Ox 98 04/26/25 07:58 FiO2 Intake & Output 04/26/25 04/26/25 04/27/25 06:59 18:59 06:59 Intake Total 10 250 Output Total 1500 Balance -1490 250 Weight 90.6 kg Intake: IV 10 10 Invasive Line 2 10 10 Oral 240 Output: Urine 1500 Other: Voiding Method Toilet Toilet # Voids 3 # Bowel Movements 1 - Exam Awake comfortable. Alert and oriented x 3 Lungs are clear CVS S1 and S2 Abdomen is soft Extremities show no edema. TOWER ERECTOR intact. - Labs CBC & Chem 7: 04/24/25 17:22 04/26/25 06:26 Labs: Abnormal Lab Results - Last 24 Hours (Table) 04/26/25 04/26/25 Range/Units 06:22 06:26 Sodium 133 L (137-145) mmol/L Potassium 5.2 H (3.5-5.1) mmol/L Carbon Dioxide 20 L (22-30) mmol/L BUN 45 H (9-20) mg/dL Creatinine 2.26 H (0.66-1.25) mg/dL Glucose 143 H (74-99) mg/dL POC Glucose (mg/dL) 139 H (70-110) mg/dL Assessment and Plan Assessment: 1. Acute kidney injury likely related to some degree of volume depletion, no urine retention. 2. CK D stage IV with baseline creatinine 1.7-1.8 mg/dLsecondary to nephrosclerosis 3. Hyperkalemia associated with acute kidney injury, ELLA/i 4. Status post fall Plan: OK for discharge Continue to hold ELLA inhibitor's Repeat labs in 2-3 days post discharge.
== END 2025-04-26 11:08 | disposition home or self-care (01) | DRG 683 ==
LOC: EC 16:22 → 3SCARD 19:09
PROVIDERS: ADMIT Family Medicine; ATTEND Family Medicine
DX: N17.9 Acute kidney failure, unspecified (principal); E87.0 Hyperosmolality and hypernatremia; K81.0 Acute cholecystitis; E11.22 Type 2 diabetes mellitus with diabetic chronic kidney disease; E86.9 Volume depletion, unspecified; I48.91 Unspecified atrial fibrillation; J44.9 Chronic obstructive pulmonary disease, unspecified; N18.4 Chronic kidney disease, stage 4 (severe); I12.9 Hypertensive chronic kidney disease with stage 1 through stage 4 chronic kidney disease, or unspecified chronic kidney disease; F32.A Depression, unspecified; E11.65 Type 2 diabetes mellitus with hyperglycemia; Z79.84 Long term (current) use of oral hypoglycemic drugs; E78.5 Hyperlipidemia, unspecified; E87.5 Hyperkalemia; F43.10 Post-traumatic stress disorder, unspecified; I25.2 Old myocardial infarction; Z79.01 Long term (current) use of anticoagulants; Z79.899 Other long term (current) drug therapy; Z85.820 Personal history of malignant melanoma of skin; Z87.891 Personal history of nicotine dependence; Z57.4 Occupational exposure to toxic agents in agriculture; Z91.81 History of falling; Z87.01 Personal history of pneumonia (recurrent); Z28.21 Immunization not carried out because of patient refusal
CPT/HCPCS: 36415; 70450; 72125; 80048; 80053; 83605; 84484; 85025; 93005; 94640; 96374; 96375; 99291

== ENCOUNTER → 2025-04-28 | Outpatient (CLI) | payer OTHER, MEDICARE ==
[2025-04-28 15:19] LABS: ALT 49 U/L (10-49); AST 29 U/L (14-35); Cholesterol 127.00 mg/dL (0.00-200.00); HDL Cholesterol 47.00 mg/dL (40.00-60.00); LDL Cholesterol,Calculated 55.2 mg/dL (0.0-131.0); Triglycerides 124.00 mg/dL (0.00-149.00); VLDL Calculation 24.80 mg/dL (5.00-40.00)
== END | disposition home or self-care (01) ==
LOC: LABWHC1 07:30
PROVIDERS: ATTEND Internal Medicine Cardiovascular Disease
DX: E78.2 Mixed hyperlipidemia (principal)
CPT/HCPCS: 36415; 80061; 84450; 84460